=== PATIENT | female | born 1960 | race Caucasian/White ===

== ENCOUNTER → 2019-06-04 14:19 | Outpatient (CLI) | payer MEDICARE, OTHER, SELFPAY ==
[2019-06-04 15:56] LABS: Alanine Aminotransferase 30 U/L (12-78); Albumin Level 3.8 gm/dL (3.4-5.0); Alkaline Phosphatase 138 U/L (46-116); Anion Gap 13.3 mEq/L (5-15); Aspartate Amino Transferase 26 U/L (15-37); Bilirubin,Total 0.5 mg/dL (0.2-1.0); Blood Urea Nitrogen 10 mg/dL (7-18); Calcium 9.3 mg/dL (8.5-10.1); Carbon Dioxide 29 mmol/L (21.0-32.0); Chloride 100 mmol/L (98-107); Cholesterol 169 mg/dL (140-200); Creatinine,Serum 0.66 mg/dL (0.55-1.02); Estimated Glomerular Filt Rate 91 ml/min (>60); GFR (African American) 111 ML/MIN (>60); Globulin 3.9 gm/dl (1.3-3.2); Glucose 243 mg/dL (74-106); HDL Cholesterol 34 mg/dL (29-89); LDL Cholesterol 105 mg/dL (0-130); Potassium 4.3 mmoL/L (3.5-5.1); Sodium 138 mmol/L (136-145); T4 (Thyroxine) 9.1 ug/dl (4.7-13.3); Thyroid Stimulating Hormone 2.41 uIU/ml (0.358-3.740); Total Protein,Serum 7.7 gm/dL (6.4-8.2); Triglycerides 148 mg/dL (30-200); VLDL Cholesterol 30 mg/dL (0-40)
[2019-06-04 16:07] LABS: Hemoglobin A1C 9.5 % (0.0-7.0)
[2019-06-06 18:04] LABS: Vitamin D 25 Hydroxy 18.4 ng/mL (30.0-100.0)
[2019-06-06 18:06] LABS: Microalbumin, Urine <3.0 ug/mL (Not Estab.)
== END ==
PROVIDERS: Visit Provider Nurse Practitioner Family
DX: I10 Essential (primary) hypertension (principal); R53.83 Other fatigue; E11.9 Type 2 diabetes mellitus without complications; R09.89 Other specified symptoms and signs involving the circulatory and respiratory systems; E78.2 Mixed hyperlipidemia; Z79.84 Long term (current) use of oral hypoglycemic drugs
CPT/HCPCS: 80053; 80061; 82043; 82652; 83036; 84436; 84443

== ENCOUNTER → 2019-06-10 14:18 | Outpatient (CLI) | payer MEDICARE, OTHER, SELFPAY ==
--- NOTE | 2019-06-10 14:25 | XR_ITS ---
PROCEDURE: XR CHEST 2V CLINICAL HISTORY: cough Cough and congestion, former smoker COMPARISON: No exams were available for comparison FINDINGS: Borderline cardiomegaly without failure. Biventricular and right atrial pacer wires are present. Slight increased markings are present in the right perihilar region suggestive of patchy infiltrate. There is mild kyphosis with mild wedging T9 and T8 and T7 which may be chronic. IMPRESSION: Patchy right perihilar infiltrate with mild cardiomegaly Dictated by: Loc Duran MD 06/10/2019 16:24 Electronically signed by Loc Duran MD in [place] 06/10/2019 16:24
--- NOTE | 2019-06-10 14:25 | XR_ITS ---
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 Coarse intramedullary calcification is noted involving the distal shaft of the femur with a typical appearance of a bone infarction. No fracture or dislocation. Minimal osteoarthritic changes are present at the knee. IMPRESSION: Coarse intramedullary calcification of the distal shaft of the femur consistent with bone infarction Dictated by: Loc Duran MD 06/10/2019 16:26 Electronically signed by Loc Duran MD in [place] 06/10/2019 16:26
[2019-06-10 14:58] LABS: Basophils # 0.1 K/mm3 (0-0.2); Basophils % 0.8 % (0.1-2.0); Eosinophils # 0.3 K/mm3 (0.0-0.4); Eosinophils % 5.2 % (0.1-12.0); Hematocrit 41.4 % (37.0-47.0); Hemoglobin 13.2 g/dL (12.2-16.2); Lymphocytes # 1.6 K/mm3 (0.7-4.5); Lymphocytes % 25.7 % (10-50); Mean Corpuscular HGB Conc 31.9 g/dL (31.8-35.4); Mean Corpuscular Hemoglobin 29.9 pg (27.0-31.2); Mean Corpuscular Volume 93.7 fl (81-99); Mean Platelet Volume 8.9 fl (7.4-10.4); Monocytes # 0.7 K/mm3 (0.1-1.0); Monocytes % 11.1 % (1.7-9.3); Neutrophils # 3.6 K/mm3 (1.8-7.8); Neutrophils % 57.2 % (37.0-80.0); Platelet Count 230 K/mm3 (142-424); Red Blood Count 4.42 M/mm3 (4.20-5.40); Red Cell Distribution Width 12.7 % (11.5-17.5); White Blood Count 6.3 K/mm3 (4.8-10.8)
== END ==
PROVIDERS: PCP Emergency Medicine; Visit Provider Nurse Practitioner Family
DX: D49.9 Neoplasm of unspecified behavior of unspecified site (principal); R09.89 Other specified symptoms and signs involving the circulatory and respiratory systems; R05 Cough
CPT/HCPCS: 71046; 73552; 85025

== ENCOUNTER → 2019-06-19 10:17 | Outpatient (CLI) | payer MEDICARE, OTHER, SELFPAY ==
--- NOTE | 2019-06-19 10:30 | XR_ITS ---
PROCEDURE: XR KNEE LT 4V CLINICAL INDICATION: Femur Pain COMPARISON: XR FEMUR LT 2V from 06/10/2019 FINDINGS: No fracture or dislocation. No lytic or blastic change. There is normal mineralization. There is mild joint space narrowing medially and there is spurring of the tibial spines. There is mild narrowing of the patellofemoral space. There is no effusion. Again noted is the course somewhat diffuse intramedullary calcifications of the distal femur consistent with a bone infarct stable and unchanged from the previous exam. IMPRESSION: Mild degenerate changes, stable bone infarct distal femur Dictated by: Dr. Michael Wheatley MD 06/19/2019 10:[address] Michael Wheatley MD in [place] 06/19/2019 10:53
== END ==
PROVIDERS: PCP Nurse Practitioner Family; Visit Provider Orthopaedic Surgery
DX: M89.8X5 Other specified disorders of bone, thigh (principal)
CPT/HCPCS: 73564

== ENCOUNTER → 2019-07-21 08:08 | Outpatient (CLI) | payer MEDICARE, OTHER, SELFPAY ==
--- NOTE | 2019-07-21 | CA_ITS ---
APPROVED REPORT Exam: Pharmacologic Technologist: Ronna Truong Ht: 5 ft 6 in Wt: 250 lbs BSA: 2.20 m2 HR: 63 bpm BP: 161/67 mmHg Indications: Dyspnea Medical History Medications: Omeprazole,,,,, Carvedilol,,,,, Glipizide,,,,, Citalopram,,,,, Montelukast,,,,, Prednisone,,,,, Tizanidine,,,,, Vitamin D2,,,,, OxYbutynin,,,,, Potassium,,,,, Detromethorphan,,,,, Bunetanide,,,,, Stress Test Details Test: LEXISCAN HR Resting HR: 63 bpm Max Heart Rate (APMHR): 160 bpm Max HR Achieved: 99 bpm Target HR (85% APMHR): 136 bpm % of APMHR: 61 Recovery HR: 63 bpm BP Resting BP: 161.0/67.0 mmHg Max BP: 176.0/84.0 mmHg Recovery BP: 161.0/67.0 mmHg ECG Clinical Exercise duration: 04:00 min Highest Stage Achieved: Stress ECG Conclusion Resting ECG: Ventricular paced rhythm Symptoms: Shortness of air,malaise, stomach discomfort, headache. No chest pain. Arrhythmias/Ectopy: Occasional PVC. Periods of [place] rhythm intermixed with paced rhythm. ST-T Changes: Exaggeration of baseline abnormalities. Conclusion: Non-diagnostic Lexiscan stress. Myoview images reported separately. Electronically signed by : Joseph Hernandez, 07/22/2019 15:06:29
--- NOTE | 2019-07-21 08:12 | CA_ITS ---
[facility] RADIOLOGICAL CONSULTATION Patient Name : SHAYLA BERMUDEZ X-RAY # : [id number] Physician: SNEHAL ARIAS AGE: 59Y : 1960 00:00:00 ( F ) Exam : CA ECHO DOPPLER COMPLETE ACC # : [id number] Study Date : 07/21/2019 08:59:36 Patient Class : O FINAL REPORT CLINICAL DATA: FINDINGS: TRANSCRIBED REPORT EXAM: Comprehensive 2D, Doppler, and color-flow Echocardiogram Petroleum Laboratory Technician: Sheri Parada RDCS Ht: 5 ft 6 in Wt: 261lbs BSA: 2.24 BP: 161/92 mmHg Indications: Shortness of Breath, Diabetes, Obesity, Dyspnea, Hypertension/HDD,pacer,CHF,ex smoke M-Mode Dimensions RVDd 2.90 cm (0.9-2.6) LA Diam 4.30 cm (1.9-4.0) LVDd 5.90 cm (3.5-5.7) Ao Diam 2.80 cm (2.0-3.7) LVDs 4.90 cm (3.5-5.7) AV Cusp 1.30 cm (1.5-2.6) IVSd 1.30 cm (0.6-1.1) PWd 1.10 cm (0.6-1.1) EF (Teich) 45.00% Electronically signed by : IMPRESSION: Dictated by at Transcribed by at
--- NOTE | 2019-07-21 08:12 | NM_ITS ---
APPROVED REPORT Exam: Nuclear Stress Test Indication: SOB, HTN, DM, Family history, Pacemaker Patient Location: Outpatient Stress Tech: Ronna Truong NM Tech:Iva Gonzalez, ARRT, RT (R)(N) Ht: 5 ft 6 in Wt: 250 lbs Bra Size: 46D HR: 63 bpm BP: 161/67 mmHg BSA: 2.20 m2 BMI: 40.3 History: SOB, HTN, DM, Family history, Pacemaker Procedure: Patient received a 0.4 mg of intravenous Lexiscan, resting heart rate 63 bpm, resting blood pressure 161/67 mmHg, with Lexiscan maximum heart rate achived was 74 bpm which is % of the maximum predicted heart rate and blood pressure was 176/84 mmHg. Cardiac Stress and Resting SPECT Images: Cardiac Stress and Resting SPECT images were obtained using technetium 99m Myoview 31.2 mCi stress and 9.91 mCi at rest. The ejection fraction is low at 33% with global hypokinesia There is a fixed defect within the apical septal region. Tgere is a small reversible defect in the lateral wall. Conclusion: The ejection fraction is low at 33% with global hypokinesia There is a fixed defect within the apical septal region consistent with an area of infarction. There is a small reversible defect in the lateral wall consistent with a small area of ischemia Electronically signed by : Loc Duran MD 07/22/2019 09:53:54
--- NOTE | 2019-07-21 08:49 | HMH.ITSHM ---
Current Home Medications as stated by this patient Barbara Cabrera or branch sales and service representative. []TIZANIDINE PREDNISONE POTASSIUM OXYBUTYNIN OMEPRAZOLE MONTELUKAST GLIPIZIDE VITAMIN D2 DETROMETHORPHAN CITALOPRAM CARVEDILOL BUMETANIDE AMLODIPINE ALBUTEROL
== END ==
PROVIDERS: PCP Nurse Practitioner Family; Visit Provider Internal Medicine Cardiovascular Disease
DX: I48.0 Paroxysmal atrial fibrillation (principal); J18.9 Pneumonia, unspecified organism; J44.9 Chronic obstructive pulmonary disease, unspecified; R05 Cough; R06.09 Other forms of dyspnea; Z95.0 Presence of cardiac pacemaker
CPT/HCPCS: 78452; 93017; 93306; A9502; J2785

== ENCOUNTER → 2019-07-31 12:04 | Outpatient (CLI) | payer MEDICARE, OTHER, SELFPAY | PROVIDERS: Visit Provider Internal Medicine Cardiovascular Disease | DX: R06.09 Other forms of dyspnea (principal) | CPT/HCPCS: 36415; 83880 ==

== ENCOUNTER → 2019-08-06 08:20 | Outpatient (CLI) | payer MEDICARE, OTHER, SELFPAY ==
--- NOTE | 2019-08-06 08:21 | US_ITS ---
APPROVED REPORT Exam Type: Lower Extremity Segmental Pressures Geospatial Scientist: Sheri Parada RDCS Indications Claudication: Rest Pain: Risk Factors Hypertension Hyperlipidemia Obesity Cardiac Disease DiabetesDiabetes, History of Smoking Pressures/Indices Right Indices Left Indices Brachial 160.00 mmHg Brachial 153.00 mmHg Low Thigh 174.00 mmHg 1.09 Low Thigh 163.00 mmHg 1.02 Calf 157.00 mmHg 0.98 Calf 142.00 mmHg 0.89 Ankle(PT) 179.00 mmHg 1.12 Ankle(PT) 161.00 mmHg 1.01 Ankle(DP) 177.00 mmHg 1.11 Ankle(DP) 165.00 mmHg 1.03 Digit 100.00 mmHg 0.63 Digit 123.00 mmHg 0.77 Findings R HORACE 1.1 L HORACE 1.0 R TBI .6 L TBI .8 NORMAL PULSES AND WAVEFORMS Conclusion No evidence significant arterial disease throughout the right and left lower extremities as evidenced by normal resting PVR waveforms and normal resting indices. Electronically signed by : Loc Duran MD 08/06/2019 18:28:27
--- NOTE | 2019-08-06 08:49 | FL_ITS ---
PROCEDURE: FL BARIUM SWALLOW CLINICAL INDICATION: difficulty swallowing Choking on food COMPARISON: No exams were available for comparison TECHNIQUE: In the upright position the patient was observed to swallow barium in both the AP and lateral view. The cervical esophagus was examined under fluoroscopy with images obtained. The patient was then placed prone in the right anterior oblique position and was observed to swallow barium with Valsalva technique . FLUOROSCOPY TIME: 54 seconds FINDINGS: There was no evidence of aspiration. There was normal peristalsis. No filling defects or mucosal abnormalities. No masses or strictures. There is a small sliding hiatal hernia. No constricting Schatzki's ring. IMPRESSION: Small sliding hiatal hernia otherwise negative barium swallow Dictated by: Loc Duran MD 08/06/2019 15:44 Electronically signed by Loc Duran MD in [place] 08/06/2019 15:44
== END ==
PROVIDERS: PCP Nurse Practitioner Family; Visit Provider Physician Assistant
DX: I73.9 Peripheral vascular disease, unspecified (principal); R13.10 Dysphagia, unspecified
CPT/HCPCS: 74220; 93923

== ENCOUNTER → 2019-08-14 12:29 | Outpatient (CLI) | payer MEDICARE, OTHER, SELFPAY ==
--- NOTE | 2019-08-14 12:34 | XR_ITS ---
PROCEDURE: XR CHEST 2V CLINICAL HISTORY: atrial fib Shortness of breath, atrial fibrillation COMPARISON: XR CHEST 2V from 06/10/2019 XR CHEST 2V from 06/27/2019 FINDINGS: Biventricular pacemaker is present from left subclavian approach with a right atrial lead also noted . Normal heart size. No evidence of CHF. Lungs are clear bilaterally. There are mild degenerative changes in the thoracic spine with mild kyphosis IMPRESSION: As above, no acute finding Dictated by: Loc Duran MD 08/14/2019 17:19 Electronically signed by Loc Duran MD in [place] 08/14/2019 17:19
[2019-08-14 13:55] LABS: Alanine Aminotransferase 25 U/L (12-78); Albumin Level 3.1 gm/dL (3.4-5.0); Alkaline Phosphatase 118 U/L (46-116); Aspartate Amino Transferase 26 U/L (15-37); Bilirubin,Direct 0.1 mg/dL (0.0-0.2); Bilirubin,Indirect 0.6 mg/dL (0.0-0.9); Bilirubin,Total 0.7 mg/dL (0.2-1.0); Free Thyroxine Index 2.6 ug/dL (5.93-13.13); T4 (Thyroxine) 7.3 ug/dl (4.7-13.3); Thyroid Stimulating Hormone 2.67 uIU/ml (0.358-3.740); Total Protein,Serum 6.5 gm/dL (6.4-8.2); Triiodothryronine (T3) Uptake 35 % (31-39)
== END ==
PROVIDERS: PCP Nurse Practitioner Family; Visit Provider Urology
DX: I48.0 Paroxysmal atrial fibrillation (principal); R06.00 Dyspnea, unspecified; Z51.81 Encounter for therapeutic drug level monitoring; Z79.899 Other long term (current) drug therapy; I42.9 Cardiomyopathy, unspecified
CPT/HCPCS: 36415; 71046; 80076; 84436; 84443; 84479

== ENCOUNTER 2019-08-20 02:48 | Inpatient (IN) ==
[2019-08-20 03:21] LABS: Basophils # 0.1 K/mm3 (0-0.2); Basophils % 0.5 % (0.1-2.0); Eosinophils # 0.2 K/mm3 (0.0-0.4); Eosinophils % 2.2 % (0.1-12.0); Hemoglobin 12.5 g/dL (12.2-16.2); Lymphocytes # 2.7 K/mm3 (0.7-4.5); Lymphocytes % 27.6 % (10-50); Mean Corpuscular HGB Conc 32.2 g/dL (31.8-35.4); Mean Platelet Volume 9.7 fl (7.4-10.4); Monocytes # 0.6 K/mm3 (0.1-1.0); Neutrophils # 6.3 K/mm3 (1.8-7.8); Neutrophils % 63.7 % (37.0-80.0); Platelet Count 238 K/mm3 (142-424); Red Blood Count 4.11 M/mm3 (4.20-5.40); Red Cell Distribution Width 13.3 % (11.5-17.5); White Blood Count 9.9 K/mm3 (4.8-10.8)
[2019-08-20 03:30] LABS: Albumin Level 3.3 gm/dL (3.4-5.0); Bilirubin,Direct 0.2 mg/dL (0.0-0.2); Bilirubin,Indirect 0.4 mg/dL (0.0-0.9); Bilirubin,Total 0.6 mg/dL (0.2-1.0); Total Protein,Serum 7.2 gm/dL (6.4-8.2)
[2019-08-20 03:34] LABS: Anion Gap 10.7 mEq/L (5-15); C-Reactive Protein 2.5 mg/dL (0.0-0.9); Calcium 8.6 mg/dL (8.5-10.1)
[2019-08-20 03:43] LABS: Erythrocyte Sedimentation Rate 24 mm/hr (0-30)
--- NOTE | 2019-08-20 04:39 | Emergency Department Note ---
ED Disposition Clinical Impression: Biventricular cardiac pacemaker in situ Congestive heart failure Qualifiers: Heart failure type: unspecified Heart failure chronicity: acute on chronic Qualified Code(s): I50.9 - Heart failure, unspecified A-fib Qualifiers: Atrial fibrillation type: longstanding persistent Qualified Code(s): I48.11 - Longstanding persistent atrial fibrillation Obesity Qualifiers: Obesity type: due to excess calories Obesity classification: adult class 3 (BMI >= 40) Serious obesity comorbidity presence: with serious comorbidity Body mass index: BMI 40.0-44.9 Qualified Code(s): E66.01 - Morbid (severe) obesity due to excess calories; Z68.41 - Body mass index (BMI) 40.0-44.9, adult Diabetes mellitus Qualifiers: Diabetes mellitus type: type 2 Diabetes mellitus assisted insulin use: unspecified assisted insulin use status Diabetes mellitus complication status: with other specified complication Qualified Code(s): E11.69 - Type 2 diabetes mellitus with other specified complication Disposition: Admitted as Observation Condition on Discharge: Fair Referrals: Staci Riggins APRN [Primary Care Provider] - - Critical Care Critical Care Time: No Attestation: On 08/20/19, the high probability of a clinically significant, sudden or life threatening deterioration of the following system(s) required my full and direct attention, intervention and personal management. The time I documented below is in addition to time spent performing reported procedures but includes the following listed in this critical care notation. Medical Decision Making - Medical Records Medical records reviewed: Yes: I reviewed the patient's medical records. - Feliberto Inquiry Pt receiving controlled substance: No Vital Signs: 08/20/19 03:00 Temperature 97.6 F Temperature Source Oral Pulse Rate [Left Radial] 80 Respiratory Rate 16 Blood Pressure [Right Arm] 140/87 Blood Pressure Mean [Right Arm] 104 Blood Pressure Source [Right Arm] Automatic Cuff Blood Pressure Position [Right Arm] Sitting 02 Sat by Pulse Oximetry 96 Oxygen Delivery Method Room Air - Lab Data Lab results reviewed: Yes: I reviewed the patient's lab results. Lab Results 08/20/19 03:00: WBC 9.9, RBC 4.11 L, Hgb 12.5, Hct 39.0, MCV 95.0, MCH 30.5, MCHC 32.2, RDW 13.3, Plt Count 238, MPV 9.7, Neut % (Auto) 63.7, Lymph % (Auto) 27.6, Lewis % (Auto) 6.0, Eos % (Auto) 2.2, Baso % (Auto) 0.5, Neut # (Auto) 6.3, Lymph # (Auto) 2.7, Lewis # (Auto) 0.6, Eos # (Auto) 0.2, Baso # (Auto) 0.1, ESR 24 08/20/19 03:00: Sodium 136, Potassium 3.7, Chloride 102, Carbon Dioxide 27, Anion Gap 10.7, BUN 12, Creatinine 0.81, Estimated Creat Clear 132, Estimated GFR 72, Est GFR ( Amer) 87, Glucose 245 H, Calcium 8.6, Troponin I 0.03, C-Reactive Protein 2.5 H 08/20/19 03:00: Total Bilirubin 0.6, Direct Bilirubin 0.2, Indirect Bilirubin 0.4, AST 19, ALT 29, Alkaline Phosphatase 121 H, Total Protein 7.2, Albumin 3.3 L Result diagrams: 08/20/19 03:00 08/20/19 03:00 Orders (Tests/Meds): ED MEDICATIONS Discontinued Medications Generic Name Dose Route Start Last Admin Trade Name Freq PRN Reason Stop Dose Admin Methylprednisolone Sodium Succinate 125 mg 08/20/19 03:17 08/20/19 03:37 Solu-Medrol 125mg/2ml Vial IV 08/20/19 03:18 125 mg ONCE ONE Administration ORDERS Category Date Time Status XR chest 2V Stat Exams 08/20/19 03:11 Taken Troponin I Q3H Lab 08/20/19 06:15 Ordered Troponin I Q3H Lab 08/20/19 09:15 Ordered - Radiology Data #1 Image(s): Chest Image Reviewed: Yes I reviewed the patient's radiology image Preliminary Findings: Abnormal (chf) - ECG Data Tracing #1 Arrhythmias present: afib Ischemic changes: non-specific ST-T wave changes Conduction abnormalities present: IVCD - Physician Consults Physician Consulted: [email or web address] Reason -: Pt condition Resp/SOB HPI - General Chief Complaint: Shortness of Breath/Dyspnea Stated Complaint: SOB Time Seen by Provider: 08/20/19 03:20 Mode of Arrival: Wheelchair Source of Information: Patient, Medical Record Limitations: No Limitations Description of Symptoms (Recalled from ER Triage Doc. by RN): PT STATED SHE HAS BEEN SOB FOR THE PAST THREE DAYS THAT HAS PROGRESSIVELY GOTTEN WORSE WHEN SHE LAYS DOWN OR WITH EXERTION. PT STATED SHE WAS RECENTLY DIAGNOSED WITH AFIB AND IS SUPPOSED TO SEE BK THIS MORNING FOR A CARDIOVERSION. PT DENIES ANY CHEST PAIN AT THIS TIME. - History of Present Illness pt with known afib and chf with acute excerbation of sx this am - no chest pain MD Complaint: shortness of breath Onset (ago): hour(s) Severity: moderate Relieving factors: upright position Exacerbating factors: lying flat Known history of: congestive heart failure, diabetes Associated symptoms: denies other symptoms Treatment prior to arrival: none - Related Data Home oxygen amount: none Home Medications Medication Instructions Recorded Confirmed albuterol sulfate HFA 90 2 puff INHALATION Q6H PRN 06/04/19 08/20/19 mcg/actuation aerosol inhaler azelastine-fluticasone 137 mcg-50 1 spray INTRANASAL BID 06/04/19 08/14/19 mcg/spray nasal spray bumetanide 1 mg tablet 2 mg PO DAILY tab 06/04/19 08/14/19 citalopram 20 mg tablet 20 mg PO DAILY 06/04/19 08/14/19 glipizide 5 mg tablet 5 mg PO DAILY 06/04/19 08/20/19 metformin ER 1,000 mg 1,000 mg PO QPM 06/04/19 08/20/19 tablet,extended release 24hr montelukast 10 mg tablet 10 mg PO QPM 06/04/19 08/20/19 omeprazole 20 mg capsule,delayed 20 mg PO DAILY 06/04/19 08/20/19 release potassium chloride ER 20 mEq 20 meq PO DAILY 06/04/19 08/20/19 tablet,extended release tizanidine 4 mg capsule 4 mg PO TID PRN 06/04/19 08/20/19 diclofenac potassium 50 mg tablet 75 mg PO BID PRN tab 06/10/19 08/20/19 oxybutynin chloride 5 mg tablet 5 mg PO BID 06/25/19 08/14/19 aspirin 81 mg tablet,delayed 81 mg PO DAILY 07/31/19 08/20/19 release Amiodarone HCl 200 mg PO BID 08/20/19 08/20/19 Apixaban [Eliquis] 5 mg PO BID 08/20/19 08/20/19 Ergocalciferol (Vitamin D2) 50,000 unit PO QWEEK 08/20/19 08/20/19 [Drisdol] Metoprolol Succinate 25 mg PO .nightly 08/20/19 08/20/19 Sacubitril/Valsartan [Entresto] 1 tab PO BID 08/20/19 08/20/19 Previous Rx's Medication Instructions Recorded dextromethorphan polistirex ER 30 10 ml PO Q12H PRN #89 ml 06/10/19 mg/5 mL oral susp ext.release 12hr Allergies Allergy/AdvReac Type Severity Reaction Status Date / Time morphine Allergy Mild Verified 08/20/19 03:10 tramadol Allergy Mild Nausea Verified 08/20/19 03:10 [facility] History - Hepatitis A Screen Drug use history?: No High risk sexual behaviors?: No History of sexually transmitted infection?: No Currently employed?: No Childcare worker?: No Do you have indoor plumbing?: Yes Do you have electricity?: Yes Attestation statement:: This patient has been screened for Hepatitis A risk factors. I have reviewed the patient's past medical history: Yes Medical History: Reports:: Congestive Heart Failure, Chronic Obstructive Pulmonary Disease (COPD), Diabetes Mellitus Type 2, Gastroesophageal Reflux Disease(GERD), Hypertension, Internal Pacemaker Other Surgeries: Yes: Cardiac Catheterization, Cholecystectomy, Colonoscopy, Pacemaker, Tubal Ligation - Social History Smoking Status: Former smoker # Packs/Day (cigarettes): 0 #Yrs smoked (if former smoker): 20 Alcohol Intake: former Substance Use Type: denies use Occupational Status: unemployed, disabled Household Members: family Family Hx:: Diabetes, Coronary Artery Disease, Heart Attack Comment: Father-CAD,[id number] ROS Obtained: Yes All systems reviewed & no additional complaints - Constitutional Constitutional: Denies fever(s) - Eyes Eyes: Denies change in vision - ENT Ears, Nose, Mouth, and Throat: Denies sore throat - Cardiovascular Cardiovascular: Denies chest pain, Reports dyspnea, Reports rapid heart rate - Respiratory Respiratory: No cough - Gastrointestinal Gastrointestingal: Denies: abdominal pain - Genitourinary Female Genitourinary: Denies hematuria - Musculoskeletal Musculoskeletal: Denies joint pain, Denies joint swelling - Integumentary/Breasts Skin/Breast: Denies rash - Neurologic Neurologic: Denies seizure-like activity Physical Exam - General General appearance: alert, obese - Head Head exam: normocephalic - Eye Eye exam: Present: PERRL, EOMI - ENT ENT exam: Present: mucous membranes dry - Neck Neck exam: Present: trachea midline - Respiratory Respiratory exam: Present: other (bilat rales ). Absent: respiratory distress - Cardiovascular Cardiovascular exam: Present: irregular rhythm, systolic murmur, +S4 - Abdominal Exam Abdominal exam: Present: soft - Extremities Exam Extremities exam: Present: pedal edema - Neurological Exam Neurological exam: Present: alert, oriented X3, CN II-XII intact - Psychiatric Psychiatric exam: Present: normal affect - Skin Skin exam: Absent: rash
--- NOTE | 2019-08-20 07:44 | Pharmacy Consult Notes ---
[facility] Pharmacy VTE Monitoring - Patient Demographics Admission date: 08/20/19 Report Date: 08/20/19 Time: 07:44 Allergies/Adverse Reactions: Patient Allergies morphine Allergy (Mild, Verified 08/20/19 03:10) tramadol Allergy (Mild, Verified 08/20/19 03:10) Nausea Height: 1.68 m Weight: 119.493 kg Patient Problems: Current Active Problems Congestive heart failure (Acute) A-fib (Acute) Obesity (Acute) Diabetes mellitus (Acute) Biventricular cardiac pacemaker in situ (Chronic) - VTE Risk Labs: VTE Related Lab Results Hgb 12.5 g/dL (12.2-16.2) 08/20/19 03:00 Hct 39.0 % (37.0-47.0) 08/20/19 03:00 Plt Count 238 K/mm3 (142-424) 08/20/19 03:00 BUN 12 mg/dL (7-18) 08/20/19 03:00 Creatinine 0.81 mg/dL (0.55-1.02) 08/20/19 03:00 Estimated Creat Clear 132 mL/min (50-200) 08/20/19 03:00 VTE Risk Level: Moderate Risk - Prophylaxis VTE Prophylaxis Ordered?: Yes Types of VTE Prophylaxis: TEDS Knee High Location of Applied Device: Bilateral Lower Extremeties - VTE Diagnosis Confirmed Treatment or plan recommended: Continue Current Treatment
--- NOTE | 2019-08-20 08:23 | Consult Report ---
History of Present Illness Consult date: 08/20/19 Requesting physician: Rudolph Conrad Consult reason: shortness of breath Chief complaint: SOA Additional Medical History:: 1. [facility] biventricular pacemaker placed 07/30/2018, Dr. Deandre Jenkins, [place], [place], 4 nonischemic cardiomyopathy, LBBB and symptomatic sinus bradycardia 2. Nonischemic cardiomyopathy, near normal coronary arteries (10-20% RCA stenosis) by cath 07/28/2018, [place], [place] A. Left heart catheterization, 07/2019, normal coronary arteries. Performed due to abnormal lexiscan myoview showing apical septal infarct and inferior ischemia. B. CHF, 07/2019 3. Hyperlipidemia 4. Remote tobacco use history 5. Diabetes mellitus type 2 6. Hypertension 7. Atrial fibrillation, on Eliquis therapy since 08/14/2019 A. Amiodarone and toprol therapy recently started, 08/14/2019, with plans for DANIS cardioversion on 08/20/2019 as an outpatient History of present illness: 59-year-old white female with known nonischemic cardiomyopathy and biventricular pacemaker presented to the emergency department for evaluation of increasing shortness of breath and chest tightness over the last several days. Patient denies any medication noncompliance and any increase in salt or fluid intake. She has been taken Benadryl for her sinus congestion and cough. Chest x-ray showed evidence of congestive heart failure with mildly elevated BNP. Patient had a chest x-ray 1 week ago with no evidence of congestive heart failure. She did receive Lasix overnight with improvement in her symptoms. She recently established care in our clinic. Recent echo and lexiscan myoview were abnormal with low EF and areas of infarct and ischemia which prompted C showing reduced LVEF with normal coronaries. Last week, she was started on amiodarone and eliquis due to pacemaker download showing episodes of a.fib with RVR. [facility] History Medical History: Reports:: Arrhythmia, Atrial Fibrillation, Congestive Heart Failure, Chronic Obstructive Pulmonary Disease (COPD), Diabetes Mellitus Type 2, Gastroesophageal Reflux Disease(GERD), Hyperlipidemia, Hypertension, Internal Pacemaker *Have you ever received a pneumonia vaccine?: Yes *Have you received a flu vaccine this season?: No Other Surgeries: Yes: Cardiac Catheterization, Cholecystectomy, Colonoscopy, Pacemaker, Tubal Ligation - *Social History Educational Level: Completed College Smoking Status: Former smoker Tobacco Type: cigarettes # Packs/Day (cigarettes): 0 #Yrs smoked (if former smoker): 20 Alcohol Intake: never Substance Use Type: denies use *Occupational Status:: unemployed, disabled Household Members: family *Travel in the last 8 weeks: None Family Hx:: Cancer, Coronary Artery Disease, Diabetes, Heart Attack, Hyperlipidemia, Hypertension, Stroke, Alcoholism Meds Home Medications Medication Instructions Recorded Confirmed Type albuterol sulfate HFA 90 2 puff IH Q6HP PRN 06/04/19 08/20/19 History mcg/actuation aerosol inhaler azelastine-fluticasone 137 mcg-50 1 spray INTRANASAL BID 06/04/19 08/20/19 History mcg/spray nasal spray citalopram 20 mg tablet 20 mg PO DAILY 06/04/19 08/20/19 History glipizide 5 mg tablet 5 mg PO DAILY 06/04/19 08/20/19 History metformin ER 1,000 mg 1,000 mg PO HS 06/04/19 08/20/19 History tablet,extended release 24hr montelukast 10 mg tablet 10 mg PO HS 06/04/19 08/20/19 History potassium chloride ER 20 mEq 20 meq PO DAILY 06/04/19 08/20/19 History tablet,extended release aspirin 81 mg tablet,delayed 81 mg PO DAILY 07/31/19 08/20/19 History release Amiodarone HCl 200 mg PO BID 08/20/19 08/20/19 History Apixaban [Eliquis] 5 mg PO BID 08/20/19 08/20/19 History Metoprolol Succinate 25 mg PO HS 08/20/19 08/20/19 History Sacubitril/Valsartan [Entresto 24 1 each PO BID 08/20/19 08/20/19 History mg-26 mg Tablet] Allergies Allergy/AdvReac Type Severity Reaction Status Date / Time morphine Allergy Mild Verified 08/20/19 03:10 tramadol Allergy Mild Nausea Verified 08/20/19 03:10 Review of Systems - Review of Systems Review of systems:: pertinent systems reviewed and negative unless documented below - *Cardiovascular Reports shortness of breath, Reports shortness of breath with activity, Denies chest pain - *Respiratory Reports chest congestion, Reports cough, Reports shortness of breath, Reports shortness of breath with activity - *Gastrointestinal Denies abdominal pain, Denies heartburn - *Genitourinary Denies blood in urine - *Musculoskeletal Denies joint pain, Denies back pain - *Neurologic Denies unsteadiness, Denies dizziness, Denies seizure-like activity Exam Vital signs and Labs for Last 24 Hours: Temp Pulse Resp BP Pulse Ox 97.7 F 72 21 163/87 H 91 L 08/20/19 05:32 08/20/19 05:32 08/20/19 05:32 08/20/19 05:32 08/20/19 05:32 Laboratory Results - last 24 hr 08/20/19 03:00: WBC 9.9, RBC 4.11 L, Hgb 12.5, Hct 39.0, MCV 95.0, MCH 30.5, MCHC 32.2, RDW 13.3, Plt Count 238, MPV 9.7, Neut % (Auto) 63.7, Lymph % (Auto) 27.6, [place] % (Auto) 6.0, Eos % (Auto) 2.2, Baso % (Auto) 0.5, Neut # (Auto) 6.3, Lymph # (Auto) 2.7, [place] # (Auto) 0.6, Eos # (Auto) 0.2, Baso # (Auto) 0.1, ESR 24 08/20/19 03:00: Sodium 136, Potassium 3.7, Chloride 102, Carbon Dioxide 27, Anion Gap 10.7, BUN 12, Creatinine 0.81, Estimated Creat Clear 132, Estimated GFR 72, Est GFR ( Amer) 87, Glucose 245 H, Calcium 8.6, Troponin I 0.03, C-Reactive Protein 2.5 H 08/20/19 03:00: Total Bilirubin 0.6, Direct Bilirubin 0.2, Indirect Bilirubin 0.4, AST 19, ALT 29, Alkaline Phosphatase 121 H, Total Protein 7.2, Albumin 3.3 L 08/20/19 03:00: B-Natriuretic Peptide 227 H 08/20/19 06:11: POC Glucose 260 H I & O for Last 24 hours: Intake & Output 08/17/19 08/18/19 08/19/19 08/20/19 11:59 11:59 11:59 11:59 Output Total 900 / 900 Balance -900 / -900 Weight 263 lb 7 oz - *Routine HEENT Exam Head: Present: normocephalic Eye: Present: EOMI, PERRL ENT: Present: mucous membranes moist - *Routine Neck Exam Present: supple. Absent: JVD, carotid bruit - *Routine Respiratory Exam Present: rales. Absent: accessory muscle use, rhonchi, wheezes - *Routine Cardiovascular Exam Present: irregularly irregular. Absent: murmur, gallop, rubs - *Routine Abdominal Exam Present: soft. Absent: tenderness, distended, guarding - *Routine Extremities Exam Present: edema. 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 insulin use status Diabetes mellitus complication status: with other specified complication Qualified Code(s): E11.69 - Type 2 diabetes mellitus with other specified complication Category: Medical Code(s): E11.9 - Type 2 diabetes mellitus without complications (3) Obesity Current visit: Yes Status: Acute Qualifiers: Obesity type: due to excess calories Obesity classification: adult class 3 (BMI >= 40) Serious obesity comorbidity presence: with serious comorbidity Body mass index: BMI 40.0-44.9 Qualified Code(s): E66.01 - Morbid (severe) obesity due to excess calories; Z68.41 - Body mass index (BMI) 40.0-44.9, adult Category: Medical Code(s): E66.9 - Obesity, unspecified (4) Biventricular cardiac pacemaker in situ Current visit: Yes Status: Chronic Category: Medical Code(s): Z95.0 - Presence of cardiac pacemaker (5) PAF (paroxysmal atrial fibrillation) Current visit: No Status: Acute Category: Medical Code(s): I48.0 - Paroxysmal atrial fibrillation (6) COPD (chronic obstructive pulmonary disease) Current visit: No Status: Chronic Qualifiers: COPD type: unspecified COPD Qualified Code(s): J44.9 - Chronic obstructive pulmonary disease, unspecified Category: Medical Code(s): J44.9 - Chronic obstructive pulmonary disease, unspecified (7) Cardiomyopathy Current visit: No Status: Chronic Qualifiers: Cardiomyopathy type: ischemic Qualified Code(s): I25.5 - Ischemic ca rdiomyopathy Category: Medical Code(s): I42.9 - Cardiomyopathy, unspecified (8) Dyspnea Current visit: No Status: Chronic Qualifiers: Dyspnea type: dyspnea on exertion Qualified Code(s): R06.09 - Other forms of dyspnea Category: Medical Code(s): R06.00 - Dyspnea, unspecified (9) HHD (hypertensive heart disease) Current visit: No Status: Chronic Qualifiers: Heart failure presence: with heart failure Heart failure type: combined sys tolic and diastolic Heart failure chronicity: chronic Qualified Code(s): I11.0 - Hypertensive heart disease with heart failure; I50.42 - Chronic combined systolic (congestive) and diastolic (congestive) heart failure Category: Medical Code(s): I11.9 - Hypertensive heart disease without heart failure (10) HLD (hyperlipidemia) Current visit: No Status: Chronic Qualifiers: Hyperlipidemia type: mixed hyperlipidemia Qualified Code(s): E78.2 - Mixed hyperlipidemia Category: Medical Code(s): E78.5 - Hyperlipidemia, unspecified - Assessment and plan all Dx Assessment and Plan for all problems:: 1. Continue diuretic therapy for congestive heart failure. Follow BUN and creatinine closely. 2. Continue plans to proceed with DANIS cardioversion today. Continue Eliquis and amiodarone therapy 3. Further recommendations to follow pending above results
--- NOTE | 2019-08-20 08:56 | History & Physical Report ---
*Admission Date: 08/20/19 *Chief complaint: soa *History of present illness: 59 yr old female presents to ed with c/o shortness of air over the last 3 days having progressively gotten worse when she lays down or with exertion. Patient states she was recently diagnosed with A. fib and is seeing Dr. Kate and has recently started treatment.patient denies any chest pain at this time patient admitted for A. fib and increasing shortness of air. Patient will have a cardiology consult. [facility] History I have reviewed the patient's past medical history: Yes Medical History: Reports:: Arrhythmia, Atrial Fibrillation, Congestive Heart Failure, Chronic Obstructive Pulmonary Disease (COPD), Diabetes Mellitus Type 2, Gastroesophageal Reflux Disease(GERD), Hyperlipidemia, Hypertension, Internal Pacemaker *Have you ever received a pneumonia vaccine?: Yes *Have you received a flu vaccine this season?: No Other Surgeries: Yes: Cardiac Catheterization, Cholecystectomy, Colonoscopy, Pacemaker, Tubal Ligation - *Social History Educational Level: Completed College Smoking Status: Former smoker Tobacco Type: cigarettes # Packs/Day (cigarettes): 0 #Yrs smoked (if former smoker): 20 Alcohol Intake: never Substance Use Type: denies use *Occupational Status:: unemployed, disabled Household Members: family *Travel in the last 8 weeks: None Family Hx:: Cancer, Coronary Artery Disease, Diabetes, Heart Attack, Hyperlipidemia, Hypertension, Stroke, Alcoholism Review of Systems - Review of Systems Review of systems:: pertinent systems reviewed and negative unless documented below - Constitutional Reports fatigue, Reports weakness, Denies body ache(s) - Eyes Denies change in vision - ENT Denies bleeding gums - *Cardiovascular Denies chest pain at rest - *Respiratory Reports shortness of breath, Reports shortness of breath with activity, Denies excessive phlegm production - *Gastrointestinal Denies nausea, Denies vomiting - *Genitourinary Denies urinary incontinence - *Musculoskeletal Reports muscle weakness, Denies joint pain - Integumentary/Breasts Denies rash - *Neurologic Denies abnormal hearing, Denies seizure-like activity - Psychiatric Denies lack of enjoyment, Denies anxiety - Endocrine Denies flushing - Hematologic/Lymphatic Denies enlarged lymph nodes - Allergic/Immunologic Denies itchy eyes Meds Home Medications Medication Instructions Recorded Confirmed Type albuterol sulfate HFA 90 2 puff INHALATION Q6H PRN 06/04/19 08/20/19 History mcg/actuation aerosol inhaler azelastine-fluticasone 137 mcg-50 1 spray INTRANASAL BID 06/04/19 08/14/19 History mcg/spray nasal spray bumetanide 1 mg tablet 2 mg PO DAILY tab 06/04/19 08/14/19 History citalopram 20 mg tablet 20 mg PO DAILY 06/04/19 08/14/19 History glipizide 5 mg tablet 5 mg PO DAILY 06/04/19 08/20/19 History metformin ER 1,000 mg 1,000 mg PO QPM 06/04/19 08/20/19 History tablet,extended release 24hr montelukast 10 mg tablet 10 mg PO QPM 06/04/19 08/20/19 History omeprazole 20 mg capsule,delayed 20 mg PO DAILY 06/04/19 08/20/19 History release potassium chloride ER 20 mEq 20 meq PO DAILY 06/04/19 08/20/19 History tablet,extended release tizanidine 4 mg capsule 4 mg PO TID PRN 06/04/19 08/20/19 History dextromethorphan polistirex ER 30 10 ml PO Q12H PRN #89 ml 06/10/19 08/20/19 Rx mg/5 mL oral susp ext.release 12hr diclofenac potassium 50 mg tablet 75 mg PO BID PRN tab 06/10/19 08/20/19 History oxybutynin chloride 5 mg tablet 5 mg PO BID 06/25/19 08/14/19 History aspirin 81 mg tablet,delayed 81 mg PO DAILY 07/31/19 08/20/19 History release Amiodarone HCl 200 mg PO BID 08/20/19 08/20/19 History Apixaban [Eliquis] 5 mg PO BID 08/20/19 08/20/19 History Ergocalciferol (Vitamin D2) 50,000 unit PO QWEEK 08/20/19 08/20/19 History [Drisdol] Metoprolol Succinate 25 mg PO .nightly 08/20/19 08/20/19 History Sacubitril/Valsartan [Entresto] 1 tab PO BID 08/20/19 08/20/19 History Allergies Allergy/AdvReac Type Severity Reaction Status Date / Time morphine Allergy Mild Verified 08/20/19 03:10 tramadol Allergy Mild Nausea Verified 08/20/19 03:10 Exam Vital signs and Labs for Last 24 Hours: Temp Pulse Resp BP Pulse Ox 97.8 F 78 18 143/83 H 92 L 08/20/19 08:00 08/20/19 08:00 08/20/19 08:00 08/20/19 08:00 08/20/19 08:00 Laboratory Results - last 24 hr 08/20/19 03:00: WBC 9.9, RBC 4.11 L, Hgb 12.5, Hct 39.0, MCV 95.0, MCH 30.5, MCHC 32.2, RDW 13.3, Plt Count 238, MPV 9.7, Neut % (Auto) 63.7, Lymph % (Auto) 27.6, [place] % (Auto) 6.0, Eos % (Auto) 2.2, Baso % (Auto) 0.5, Neut # (Auto) 6.3, Lymph # (Auto) 2.7, [place] # (Auto) 0.6, Eos # (Auto) 0.2, Baso # (Auto) 0.1, ESR 24 08/20/19 03:00: Sodium 136, Potassium 3.7, Chloride 102, Carbon Dioxide 27, Anion Gap 10.7, BUN 12, Creatinine 0.81, Estimated Creat Clear 132, Estimated GFR 72, Est GFR ( Amer) 87, Glucose 245 H, Calcium 8.6, Troponin I 0.03, C-Reactive Protein 2.5 H 08/20/19 03:00: Total Bilirubin 0.6, Direct Bilirubin 0.2, Indirect Bilirubin 0.4, AST 19, ALT 29, Alkaline Phosphatase 121 H, Total Protein 7.2, Albumin 3.3 L 08/20/19 03:00: B-Natriuretic Peptide 227 H 08/20/19 06:11: POC Glucose 260 H I & O for Last 24 hours: Intake & Output 08/17/19 08/18/19 08/19/19 08/20/19 11:59 11:59 11:59 11:59 Intake Total 0 / 0 Output Total 1800 / 1800 Balance -1800 / -1800 Weight 263 lb 7 oz - Constitutional no acute distress, obese - *Routine HEENT Exam Head: Present: normocephalic Eye: Present: PERRL ENT: Present: mucous membranes moist - *Routine Neck Exam Present: supple. Absent: lymphadenopathy - *Routine Respiratory Exam Present: CTA bilaterally - *Routine Cardiovascular Exam Present: irregular rhythm - *Routine Abdominal Exam Present: soft, normoactive bowel sounds. Absent: tenderness - *Routine Extremities Exam Present: full ROM. Absent: cyanosis, clubbing, edema - *Routine Skin Exam Present: intact, warm. Absent: rash - *Routine Neurological Exam Present: alert, oriented X3 - Routine Psychiatric Exam Present: normal affect, normal thought process Assessment and Plan (1) A-fib Current visit: Yes Status: Acute Qualifiers: Atrial fibrillation type: unspecified Qualified Code(s): I48.91 - Unspecified atrial fibrillation Category: Medical Code(s): I48.91 - Unspecified atrial fibrillation (2) Congestive heart failure Current visit: Yes Status: Acute Qualifiers: Heart failure type: unspecified Heart failure chronicity: acute on chronic Qualified Code(s): I50.9 - Heart failure, unspecified Category: Medical Code(s): I50.9 - Heart failure, unspecified (3) Obesity Current visit: Yes Status: Acute Qualifiers: Obesity type: due to excess calories Obesity classification: adult class 3 (BMI >= 40) Serious obesity comorbidity presence: with serious comorbidity Body mass index: BMI 40.0-44.9 Qualified Code(s): E66.01 - Morbid (severe) obesity due to excess calories; Z68.41 - Body mass index (BMI) 40.0-44.9, adult Category: Medical Code(s): E66.9 - Obesity, unspecified (4) Biventricular cardiac pacemaker in situ Current visit: Yes Status: Chronic Category: Medical Code(s): Z95.0 - Presence of cardiac pacemaker (5) HHD (hypertensive heart disease) Current visit: No Status: Chronic Qualifiers: Heart failure presence: with heart failure Heart failure type: combined systolic and diastolic Heart failure chronicity: chronic Qualified Code(s): I11.0 - Hypertensive heart disease with heart failure; I50.42 - Chronic combined systolic (congestive) and diastolic (congestive) heart failure Category: Medical Code(s): I11.9 - Hypertensive heart disease without heart failure (6) HLD (hyperlipidemia) Current visit: No Status: Chronic Qualifiers: Hyperlipidemia type: mixed hyperlipidemia Qualified Code(s): E78.2 - Mixed hyperlipidemia Category: Medical Code(s): E78.5 - Hyperlipidemia, unspecified - Assessment and plan all Dx Assessment and Plan for all problems:: Rounded with Dr. Conrad all orders per [place] DANIS with possible cardioversion today
--- NOTE | 2019-08-20 13:43 | Progress Note ---
[facility] Anesthesia Checklist - Patient Identification Patient Identification: Arm Band, Verbal (Name & ) - Structural Data Admitted From: Inpatient Planned Operative Procedure/s: DANIS Consent for Planned Operative Procedure(s) Verified: Yes Verified Documents: Surgical Consent, History and Physical - NPO Status Verified Time NPO: 17:00 - Chart Verification Results Verified: CBC, BMP - Additional verifications Anesthesia Reactions: No - Airway Assessment C-Spine Mobility Assessed: Yes TMJ Mobility Assessed: Yes Dentition: Edentulous - Neurological Assessment Level of Consciousness: Awake, Alert, Appropriate, Follows Commands Hx Seizures: No Numbness or tingling in extremities: No - Anesthesia Plan Anesthesia Risk discussed: Yes Anesthesia Plan: Verified ASA Class: IV Anesthesia Type: [facility] History I have reviewed the patient's past medical history: Yes Medical History: Reports:: Arrhythmia, Atrial Fibrillation, Congestive Heart Failure, Chronic Obstructive Pulmonary Disease (COPD), Diabetes Mellitus Type 2, Gastroesophageal Reflux Disease(GERD), Hyperlipidemia, Hypertension, Internal Pacemaker *Have you ever received a pneumonia vaccine?: Yes *Have you received a flu vaccine this season?: No Anesthesia experience/problems:: none Other Surgeries: Yes: Cardiac Catheterization, Cholecystectomy, Colonoscopy, Pacemaker, Tubal Ligation - *Social History Educational Level: Completed College Smoking Status: Former smoker Tobacco Type: cigarettes # Packs/Day (cigarettes): 0 #Yrs smoked (if former smoker): 20 Alcohol Intake: never Substance Use Type: denies use *Occupational Status:: unemployed, disabled Household Members: family *Travel in the last 8 weeks: None Family Hx:: Cancer, Coronary Artery Disease, Diabetes, Heart Attack, Hyperlipidemia, Hypertension, Stroke, Alcoholism
--- NOTE | 2019-08-20 15:41 | Cardiology Report ---
APPROVED REPORT EXAM: Comprehensive 2D, Doppler, and color-flow Echocardiogram Ball Fringe Machine Operator: Sheri Parada RDCS Ht: 5 ft 8 in Wt: 250lbs BSA: 2.25 BP: 160/89 mmHg Indications: AF,REDUCED EF DANIS Procedure After obtaining informed consent, patient underwent transesophageal echo in the ICU. Type of Sedation : Conscious Sedation Sedation was administered by Allen BoyerR.N.A. Transesophageal probe was inserted and advanced into esophagus without difficulty by Dr. Cory Pastor. The DANIS was performed without complications. Throughout the procedure, the blood pressure, pulse oximetry, cardiac rhythm, and rate were monitored. The patient tolerated the procedure without adverse effects. Recovery from conscious sedation was uneventful and vital signs were stable. Left Ventricle Left ventricle is mildly dilated, there is severely reduced left ventricular systolic function, visually estimated ejection fraction 30%, left ventricle is globally hypokinetic. Right Ventricle right ventricular mildly enlarged, contractility of the right ventricle is normal, there is a pacemaker lead seen in the right atrium and right ventricle. Atria Left atrium is moderately enlarged, there is no thrombus seen in the left atrium or left atrial appendage. There is poor appendage flow by spectral Doppler. Right atrium is mildly enlarged. Intra-atrial septum is intact, there is no flow across the interatrial septum, agitated saline contrast fails to identify intracardiac shunt. Aortic Valve Aortic valve is thickened and calcified, there is no aortic stenosis aortic insufficiency. Mitral Valve Mitral valve is grossly normal, there is moderate mitral regurgitation. Tricuspid Valve Tricuspid valve is grossly normal, there is moderate tricuspid regurgitation. Pulmonic Valve Pulmonic valve is grossly normal. Great Vessels Aortic root is normal size. No dissection noted Pericardium No significant pericardial effusion noted. Conclusion 1. Biatrial enlargement, there is no thrombus seen in left atrium or left atrial appendage, there is poor appendage flow by spectral Doppler. 2. Dilated left ventricle with reduced left ventricular systolic function, visually estimated ejection fraction 30% with left ventricle globally hypokinetic. 3. Moderate mitral and tricuspid regurgitation 4. Agitated saline contrast study fails to identify intracardiac shunt. 5. No significant pericardial effusion noted.
[2019-08-21 06:06] LABS: Anion Gap 8.9 mEq/L (5-15); Calcium 8.3 mg/dL (8.5-10.1)
--- NOTE | 2019-08-21 08:12 | Electrocardiograph Report ---
APPROVED REPORT Exam: Resting ECG HR:98 bpm ECG Measurements Heart Rate 98 AXES QRSd 136 QRS 54 QT 350 T202 QTc 446 <Conclusion> Atrial fibrillation with premature ventricular or aberrantly conducted complexes Nonspecific intraventricular block Abnormal ECG Electronically signed by : Eric Oglesby, 08/21/2019 08:11:56
--- NOTE | 2019-08-21 10:15 | Progress Note ---
Subjective Date: 08/21/19 Time: 10:11 Principal diagnosis: A. fib, Nonischemic cardiomyopathy Interval history: 59-year-old white female in bed in no acute distress. States her shortness of breath and swelling have improved. She did undergo successful cardioversion to sinus rhythm yesterday. Telemetry shows intermittent atrial pacing with biventricular pacing. Patient is ready to go home. Exam Vital signs and Labs for Last 24 Hours: Temp Pulse Resp BP Pulse Ox 97.6 F 60 17 152/73 H 93 L 08/21/19 08:00 08/21/19 08:00 08/21/19 08:00 08/21/19 08:00 08/21/19 08:00 Laboratory Results - last 24 hr 08/20/19 11:57: POC Glucose 269 H 08/20/19 16:32: POC Glucose 290 H 08/20/19 20:50: POC Glucose 438 H* 08/21/19 05:45: Sodium 135 L, Potassium 3.9, Chloride 101, Carbon Dioxide 29, Anion Gap 8.9, BUN 21 H D, Creatinine 0.79, Estimated Creat Clear 71, Estimated GFR 74, Est GFR ( Amer) 90, Glucose 241 H, Calcium 8.3 L, Magnesium 1.5 08/21/19 06:00: POC Glucose 218 H I & O for Last 24 hours: Intake & Output 08/18/19 08/19/19 08/20/19 08/21/19 11:59 11:59 11:59 11:59 Intake Total 0 / 0 720 / 720 Output Total 1999 1800 / 1800 Balance -1999 / -1080 / -1080 Weight 263 lb 7 oz 263 lb 6.991 oz - *Routine HEENT Exam Head: Present: normocephalic Eye: Present: EOMI, PERRL ENT: Present: mucous membranes moist - *Routine Respiratory Exam Present: CTA bilaterally. Absent: accessory muscle use, rales, rhonchi, wheezes - *Routine Cardiovascular Exam Present: RRR. Absent: murmur, gallop, rubs - *Routine Abdominal Exam Present: soft. Absent: tenderness, distended, guarding - *Routine Extremities Exam Absent: edema, calf tenderness - *Routine Neurological Exam Present: alert, oriented X3, moving all extremities Progress Note: A&P (1) Congestive heart failure Status: Acute Current Visit: Yes (2) Diabetes mellitus Status: Acute Current Visit: Yes (3) Obesity Status: Acute Current Visit: Yes (4) Biventricular cardiac pacemaker in situ Status: Chronic Current Visit: Yes (5) PAF (paroxysmal atrial fibrillation) Status: Acute Current Visit: No (6) COPD (chronic obstructive pulmonary disease) Status: Chronic Current Visit: No (7) Cardiomyopathy Status: Chronic Current Visit: No (8) Dyspnea Status: Chronic Current Visit: No (9) HHD (hypertensive heart disease) Status: Chronic Current Visit: No (10) HLD (hyperlipidemia) Status: Chronic Current Visit: No Assessment and Plan for All Diagnoses:: 1. Stable from a cardiac standpoint for discharge home 2. Home medication recommendations: Metoprolol succinate XL 50 mg daily, amiodarone 200 mg daily, Entresto 24/26 mg twice daily, aspirin 81 mg daily, Lasix 40 mg daily, potassium 20 mEq daily 3. Limit use of salt and only drink water when thirsty 4. Follow-up in 1 to 2 weeks with BMP and BNP on the day of visit 5. Patient is to weigh herself daily
--- NOTE | 2019-08-21 12:49 | Discharge Summary ---
General - General Admission date:: 08/20/19 Discharge date: 08/21/19 HPI HPI: 59 yr old female presents to ed with c/o shortness of air over the last 3 days having progressively gotten worse when she lays down or with exertion. Patient states she was recently diagnosed with A. fib and is seeing Dr. Kate and has recently started treatment.patient denies any chest pain at this time patient admitted for A. fib and increasing shortness of air. Patient will have a cardiology consult. 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 Biatrial enlargement, there is no thrombus seen in left atrium or left atrial appendage, there is poor appendage flow by spectral Doppler. 2. Dilated left ventricle with reduced left ventricular systolic function, visually estimated ejection fraction 30% with left ventricle globally hypokinetic. 3. Moderate mitral and tricuspid regurgitation 4. Agitated saline contrast study fails to identify intracardiac shunt. 5. No significant pericardial effusion noted. cardiology consult: see notes.recommendations: 1. Stable from a cardiac standpoint for discharge home 2. Home medication recommendations: Metoprolol succinate XL 50 mg daily, amiodarone 200 mg daily, Entresto 24/26 mg twice daily, aspirin 81 mg daily, Lasix 40 mg daily, potassium 20 mEq daily 3. Limit use of salt and only drink water when thirsty 4. Follow-up in 1 to 2 weeks with BMP and BNP on the day of visit 5. Patient is to weigh herself daily Pt will be dc home with changes to meds. follow up with cardiology next week. Objective Vital signs: Temp Pulse Resp BP Pulse Ox 98.1 F 75 21 153/112 H 95 08/21/19 12:00 08/21/19 12:00 08/21/19 12:00 08/21/19 12:00 08/21/19 12:00 no acute distress, morbidly obese - *Routine HEENT Exam Head: Present: normocephalic Eye: Present: PERRL ENT: Present: mucous membranes moist - *Routine Respiratory Exam Present: CTA bilaterally - *Routine Cardiovascular Exam Present: RRR - *Routine Extremities Exam Present: full ROM, normal capillary refill - *Routine Skin Exam Present: intact - *Routine Neurological Exam Present: alert, oriented X3 - Routine Psychiatric Exam Present: normal affect Results Labs on day of discharge: Labs from last 24 hours 08/21/19 08/21/19 08/20/19 06:00 05:45 20:50 Sodium 135 L Potassium 3.9 Chloride 101 Carbon Dioxide 29 Anion Gap 8.9 BUN 21 H D Creatinine 0.79 Estimated Creat Clear 71 Estimated GFR 74 Est GFR ( Amer) 90 Glucose 241 H POC Glucose 218 H 438 H* Calcium 8.3 L Magnesium 1.5 08/20/19 16:32 Sodium Potassium Chloride Carbon Dioxide Anion Gap BUN Creatinine Estimated Creat Clear Estimated GFR Est GFR ( Amer) Glucose POC Glucose 290 H Calcium Magnesium - Additional Comments rounded with Dr Rg all orders per Dr rg DS: Diagnosis - Discharge Diagnosis (1) Congestive heart failure Status: Acute (2) Diabetes mellitus Status: Acute (3) Obesity Status: Acute (4) Biventricular cardiac pacemaker in situ Status: Chronic (5) PAF (paroxysmal atrial fibrillation) Status: Acute (6) COPD (chronic obstructive pulmonary disease) Status: Chronic (7) Cardiomyopathy Status: Chronic (8) Dyspnea Status: Chronic (9) HHD (hypertensive heart disease) Status: Chronic (10) HLD (hyperlipidemia) Status: Chronic Discharge Plan - Patient Discharge Instructions ACTIVITY: Continue current activity DIET: continue same diet Patient Instructions: Heart Failure, Atrial Fibrillation, Pneumococcal Vaccine, DI for Heart Failure, DI for Chronic Obstructive Pulmonary Disease, DI for Atrial Fibrillation - Follow up Plan Follow up with: Jeffrey Bruce APRN [Nurse Practitioner] - 08/26/19 Disposition: Home, Self-Half-Way Medications: Home Medications Medication Instructions Recorded Confirmed Type albuterol sulfate HFA 90 2 puff IH Q6HP PRN 06/04/19 08/20/19 History mcg/actuation aerosol inhaler azelastine-fluticasone 137 mcg-50 1 spray INTRANASAL BID 06/04/19 08/20/19 History mcg/spray nasal spray citalopram 20 mg tablet 20 mg PO DAILY 06/04/19 08/20/19 History glipizide 5 mg tablet 5 mg PO DAILY 06/04/19 08/20/19 History metformin ER 1,000 mg 1,000 mg PO HS 06/04/19 08/20/19 History tablet,extended release 24hr montelukast 10 mg tablet 10 mg PO HS 06/04/19 08/20/19 History potassium chloride ER 20 mEq 20 meq PO DAILY 06/04/19 08/20/19 History tablet,extended release aspirin 81 mg tablet,delayed 81 mg PO DAILY 07/31/19 08/20/19 History release Amiodarone HCl 200 mg PO BID 08/20/19 08/20/19 History Apixaban [Eliquis] 5 mg PO BID 08/20/19 08/20/19 History Metoprolol Succinate 25 mg PO HS 08/20/19 08/20/19 History Sacubitril/Valsartan [Entresto 24 1 each PO BID 08/20/19 08/20/19 History mg-26 mg Tablet] Amiodarone HCl [Cordarone 200mg 200 mg PO DAILY 2 Days #30 tab 08/21/19 Rx tablet] Furosemide [Lasix 40mg tablet] 40 mg PO DAILY 30 Days #30 tab 08/21/19 Rx Prescriptions/Medication Reconciliation: New Furosemide [Lasix 40mg tablet] 40 mg PO DAILY 30 Days #30 tab Amiodarone HCl [Cordarone 200mg tablet] 200 mg PO DAILY 2 Days #30 tab Continued albuterol sulfate HFA 90 mcg/actuation aerosol inhaler 2 puff IH Q6HP PRN PRN Reason: COPD glipizide 5 mg tablet 5 mg PO DAILY potassium chloride ER 20 mEq tablet,extended release 20 meq PO DAILY montelukast 10 mg tablet 10 mg PO HS metformin ER 1,000 mg tablet,extended release 24hr 1,000 mg PO HS citalopram 20 mg tablet 20 mg PO DAILY azelastine-fluticasone 137 mcg-50 mcg/spray nasal spray 1 spray INTRANASAL BID aspirin 81 mg tablet,delayed release 81 mg PO DAILY Metoprolol Succinate 25 mg PO HS Sacubitril/Valsartan [Entresto 24 mg-26 mg Tablet] 1 each PO BID Apixaban [Eliquis] 5 mg PO BID Discontinued Amiodarone HCl 200 mg PO BID - Problem Reconciliation Problems Reviewed?: Yes
--- OUTSIDE RECORDS SUMMARY | 2019-08-21 14:49 | External Medical Summary | Continuity of Care Document ---
:1960 Author Organization [facility] Address [address] [employer] [id number] Phone Care Team Providers Name Role Phone Vaishnavi Primary Care Provider Vaishnavi Attending Provider Kiran Conrad Primary Care Provider Criselda Attending Provider Humble Attending Provider David Primary Care Provider David Attending Provider Bita Mohamud Attending Provider Katia Attending Provider Kiran Conrad Attending Provider Allergies, Adverse Reactions, Alerts Allergen Type Severity Reaction Last Updated Verified Status morphine Allergy Mild Yes Active tramadol Allergy Mild Nausea Yes Active Medications Medication Status Dose Units Route Sig Qty Days Start End Instruct ions Date Date Albuterol Active 2 PUFF INHALATION Every 6 May Sulfate hours as 2018 needed 10:25am Glipizide Active 5 MG Oral Daily June 04, 2019 10:27am Potassium Active 20 MEQ Oral Daily May 10:29am Montelukast Active 10 MG Oral At May Sodium bedtime 2018 nightly 10:29am Metformin Hcl Active 1000 MG Oral At May nightly 10:30am Citalopram Active 20 MG Oral Daily May Hydrobromid2018 10:35am Azelastine/Fl Active 1 SPRAY Intranasal Twice a May uticasone 2018 10:38am Aspirin Active 81 MG Oral Daily July 31, 2019 12:51pm Apixaban Active 5 MG Oral Twice a July 4:26am Metoprolol Active 25 MG Oral At July bed, nightly 2018 4:26am Sacubitril/Va Active 1 EACH Oral Twice a July lsartan 2018 10:09am Amiodarone Active 200 MG Oral Daily July 12:59pm Furosemide Active 40 MG Oral Daily August 21, 2019 12:59pm Problems Active Problems Medical Problem Onset Date Status COPD with exacerbation Active Diabetes mellitus Active Congestive heart failure Active A-fib Active Cough Active Dyspnea Active HLD (hyperlipidemia) Active Benign neoplasm of left femur Active PAF (paroxysmal atrial fibrillation) Act angel COPD (chronic obstructive pulmonary Acti ve disease) COPD exacerbation Active Cardiomyopathy Active Pneumonia Active HHD (hypertensive heart disease) Active Obesity Active Biventricular cardiac pacemaker in Activ e situ Procedures Procedure Date Performed Status XR chest 2V August 20, 2019 completed ECG initial Besson August 20, 2019 completed Transesophageal Echocardiogram August 20, 2019 1:30pm co mpleted XR chest 2V August 14, 2019 completed Cardiac Cath August 03, 2019 11:45am completed US Arterial Lower Ext Rest August 06, 2019 completed NM clark perf SPECT rest & str July 21, 2019 completed XR chest 2V June 27, 2019 completed ECG initial Bradford June 27, 2019 completed Blood Culture June 27, 2019 completed XR knee LT 4V June 19, 2019 completed XR chest 2V June 10, 2019 completed XR femur LT V June 10, 2019 completed Relevant Diagnostic Tests and/or Laboratory Data Laboratory Results Test Date/Time Result Interpretation Reference Result Comment Performing Range Site White Blood Count May 6.3 4.8-10.8 [facility], [address] [place] [address] 2018 K/[place]3 [place] [address] 12:56pm White Blood Count May 8.0 4.8-10.8 [facility], [address] [place] [address] 36 E 2018 K/mm[place] [address] 2:25pm White Blood Count July 9.2 4.8-10.8 [facility], [address] [place] [address] 36 E 2018 K/mm[place] [address] 8:30am White Blood Count July 9.9 4.8-10.8 [facility], [address] [place] [address] 36 E 2018 K/[place] [address] 3:00am Red Blood Count May 4.42 4.20-5.40 [facility], [address] [place] [address] 2018 M/[place]3 [place] [address] 12:56pm Red Blood Count May 4.41 4.20-5.40 [facility], [address] [place] [address] E 2018 M/mm3 [place] [address] 2:25pm Red Blood Count July 4.87 4.20-5.40 [facility], [address] [place] [address] 2018 M/mm3 [place] [address] 8:30am Red Blood Count July 4.11 4.20-5.40 [facility], [address] [place] [address] 2018 M/mm3 [place] [address] 3:00am Hemoglobin May 13.2 12.2-16.2 [facility], [address] [place] [address] 2018 g/[place] [address] 12:56pm Hemoglobin May 12.6 12.2-16.2 [facility], [address] [place] [address] 2018 g/[place] [address] 2:25pm Hemoglobin July 14.5 12.2-16.2 [facility], [address] [place] [address] 2018 g/[place] [address] 8:30am Hemoglobin July 12.5 12.2-16.2 [facility], [address] [place] [address] E 2018 g/[place] [address] 3:00am Hematocrit May 41.4 % 37.0-47.0 [facility], [address] [place] [address] 2018 [place] [address] 12:56pm Hematocrit May 41.3 % 37.0-47.0 [facility], [address] [place] [address] 36 E 2018 [place] [address] 2:25pm Hematocrit July 46.7 % 37.0-47.0 [facility], [address] [place] [address] 36 E 2018 [place] [address] 8:30am Hematocrit July 39.0 % 37.0-47.0 [facility], [address] [place] [address] 36 E 2018 [place] [address] 3:00am Mean Corpuscular Viri 93.7 fl 81-99 [facility], [address] [place] [address] E Volume 2018 [place] [address] 12:56pm Mean Corpuscular May 93.5 fl 81-99 [facility], [address] [place] [address] E Volume 2018 [place] [address] 2:25pm Mean Corpuscular July 95.9 fl 81-99 [facility], [address] [place] [address] E Volume 2018 [place] [address] 8:30am Mean Corpuscular November 95.0 fl 81-99 [facility], [address] [place] [address] E Volume 2018 [place] [address] 3:00am Mean Corpuscular May 29.9 pg 27.0-31.2 [facility], [address] [place] [address] E Hemoglobin 2018 Cyntravis anderson [place] [address] 12:56pm Mean Corpuscular May 28.5 pg 27.0-31.2 [facility], [address] [place] [address] E Hemoglobin 2018 Cynjenaroan justin [place] [address] 2:25pm Mean Corpuscular July 29.8 pg 27.0-31.2 [facility], [address] [place] [address] 36 E Hemoglobin 2018 [place] [address] 8:30am Mean Corpuscular July 30.5 pg 27.0-31.2 [facility], [address] [place] [address] E Hemoglobin 2018 Cyntravis anderson [place] [address] 3:00am Mean Corpuscular May 31.9 31.8-35.4 [facility], [address] [place] [address] E Hemoglobin 2018 g/dL Cyntravis [place] [address] Concent 12:56pm Mean Corpuscular Viri 30.5 31.8-35.4 [facility], [address] [place] [address] 36 E Hemoglobin 2018 g/dL Isabella [place]UG[place] [address] Concent 2:25pm Mean Corpuscular November 31.1 31.8-35.4 [facility], [address] [place] [address] 36 E Hemoglobin 2018 g/dL [place] [address] Concent 8:30am Mean Corpuscular July 32.2 31.8-35.4 [facility], [address] [place] [address] 36 E Hemoglobin 2018 g/dL Isabella [place] [address] Concent 3:00am Red Cell May 12.7 % 11.5-17.5 [facility], [address] [place] [address] E Distribution 2018 Cynjenaro [place] [address] Width 12:56pm Red Cell May 13.4 % 11.5-17.5 [facility], [address] [place] [address] E Distribution 2018 Cynjenaro D[place] [address] Width 2:25pm Red Cell July 12.6 % 11.5-17.5 [facility], [address] [place] [address] 36 E Distribution 2018 [place] [address] Width 8:30am Red Cell July 13.3 % 11.5-17.5 [facility], [address] [place] [address] E Distribution 2018 Cynjenaro DUGAN [address] Width 3:00am Platelet Count May 230 142-424 [facility], [address] [place] [address] 36 E 2018 K/mm3 [place] [address] 12:56pm Platelet Count May 257 142-424 [facility], [address] [place] [address] 36 E 2018 K/mm3 [place] [address] 2:25pm Platelet Count July 281 142-424 [facility], [address] [place] [address] 36 E 2018 K/mm3 [place] [address] 8:30am Platelet Count July 238 142-424 [facility], [address] [place] [address] 36 E 2018 K/mm3 [place] [address] 3:00am Mean Platelet May 8.9 fl 7.4-10.4 [facility], [address] [place] [address] E Volume 2018 [place] 12:56pm Mean Platelet May 9.3 fl 7.4-10.4 [facility], [address] [place] [address] E Volume 2018 [place] 2:25pm Mean Platelet July 9.1 fl 7.4-10.4 [facility], [address] [place] [address] E Volume 2018 [place] 8:30am Mean Platelet July 9.7 fl 7.4-10.4 [facility], [address] [place] [address] E Volume 2018 [place] 3:00am Neutrophils (%) May 57.2 % 37.0-80.0 [facility], [address] [place] [address] E (Auto) 2018 [place] 12:56pm Neutrophils (%) May 50.4 % 37.0-80.0 [facility], [address] [place] [address] E (Auto) 2018 [place] 2:25pm Neutrophils (%) July 63.7 % 37.0-80.0 [facility], [address] [place] [address] E (Auto) 2018 [place] 8:30am Neutrophils (%) July 63.7 % 37.0-80.0 [facility], [address] [place] [address] E (Auto) 2018 [place] 3:00am Lymphocytes (%) May 25.7 % -50 [facility], [address] [place] [address] E (Auto) 2018 [place] Pires31 12:56pm Lymphocytes (%) May 37.8 % 10-50 [facility], [address] [place] [address] E (Auto) 2018 [place] Pires31 2:25pm Lymphocytes (%) July 25.8 % 1050 [facility], [address] [place] [address] E (Auto) 2018 [place] Goodman 8:30am Lymphocytes (%) July 27.6 % -50 [facility], [address] [place] [address] E (Auto) 2018 [place] Pires31 3:00am Monocytes (%) May 11.1 % 1.7-9.3 [place] [facility], [address] [place] [address] E (Auto) 2018 [place] [address] 12:56pm Monocytes (%) May 8.1 % 1.7-9.3 [place] [facility], [address] [place] [address] E (Auto) 2018 [place] [address] 2:25pm Monocytes (%) July 7.7 % 1.7-9.3 [place] [facility], [address] [place] [address] E (Auto) 2018 [place] [address] 8:30am Monocytes (%) July 6.0 % 1.7-9.3 [place] [facility], [address] [place] [address] E (Auto) 2018 [place] [address] 3:00am Eosinophils (%) May 5.2 % 0.1-12.0 [place] [address] E (Auto) 2018 [place] [address] 12:56pm Eosinophils (%) May 3.2 % 0.1-12.0 [place] [address] E (Auto) 2018 [place] [address] 2:25pm Eosinophils (%) July 2.1 % 0.1-12.0 [facility], [address] [place] [address] E (Auto) 2018 [place] [address] 8:30am Eosinophils (%) July 2.2 % 0.1-12.0 [place] [address] E (Auto) 2018 [place] [address] 3:00am Basophils (%) May 0.8 % 0.1-2.0 [facility], [address] [place] [address] E (Auto) 2018 [place] [address] 12:56pm Basophils (%) May 0.6 % 0.1-2.0 [facility], [address] [place] [address] E (Auto) 2018 [place] [address] 2:25pm Basophils (%) July 0.7 % 0.1-2.0 [facility], [address] [place] [address] E (Auto) 2018 [place] [address] 8:30am Basophils (%) July 0.5 % 0.1-2.0 [place] [address] [place] [address] E (Auto) 2018 [place] [address] 3:00am Neutrophils # May 3.6 1.8-7.8 [place] [facility], [address] [place] [address] 36 E (Auto) 2018 K/mm3 [place] [address] 12:56pm Neutrophils # May 4.0 1.8-7.8 [place] [facility], [address] [place] [address] 36 E (Auto) 2018 K/mm3 [place] [address]898 2:25pm Neutrophils # July 5.9 1.8-7.8 [place] [facility], [address] [place] [address] 36 E (Auto) 2018 K/mm3 [place] [address] 8:30am Neutrophils # July 6.3 1.8-7.8 [place] [facility], [address] [place] [address] 36 E (Auto) 2018 K/mm3 [place] [address] 3:00am Lymphocytes # May 1.6 0.7-4.5 [place] [facility], [address] [place] [address] 36 E (Auto) 2018 K/mm3 [place] [address] 12:56pm Lymphocytes # May 3.0 0.7-4.5 [place] [facility], [address] [place] [address] 36 E (Auto) 2018 K/mm3 [place] [address] 2:25pm Lymphocytes # July 2.4 0.7-4.5 [place] [facility], [address] [place] [address] 36 E (Auto) 2018 K/mm3 [place] [address]237 8:30am Lymphocytes # July 2.7 0.7-4.5 [place] [facility], [address] [place] [address] 36 E (Auto) 2018 K/mm3 [place] 65549 3:00am Monocytes # May 0.7 0.1-1.0 [facility], [address] [place] [address] 36 E (Auto) 2018 K/mm3 [place] [address]98[address] 12:56pm Monocytes # May 0.7 0.1-1.0 [facility], [address] [place] [address] 36 E (Auto) 2018 K/mm3 [place] [address]4088 2:25pm Monocytes # July 0.7 0.1-1.0 [facility], [address] [place] [address] 36 E (Auto) 2018 K/[place]3 [place] [address] 8:30am Monocytes # July 0.6 0.1-1.0 [facility], [address] [place] [address] E (Auto) 2018 K/mm3 [place] [address] 3:00am Eosinophils # May 0.3 0.0-0.4 [facility], [address] [place] [address] E (Auto) 2018 K/mm3 [place] [address] 12:56pm Eosinophils # May 0.3 0.0-0.4 [facility], [address] [place] [address] E (Auto) 2018 K/mm3 [place] [address] 2:25pm Eosinophils # July 0.2 0.0-0.4 [facility], [address] [place] [address] E (Auto) 2018 K/mm3 [place] [address] 8:30am Eosinophils # July 0.2 0.0-0.4 [facility], [address] [place] [address] E (Auto) 2018 K/mm3 [place] [address] 3:00am Basophils # May 0.1 0-0.2 [facility], [address] [place] [address] E (Auto) 2018 K/mm3 [place] [address] 12:56pm Basophils # May 0.1 0-0.2 [facility], [address] [place] [address] E (Auto) 2018 K/mm3 [place] [address] 2:25pm Basophils # July 0.1 0-0.2 [facility], [address] [place] [address] E (Auto) 2018 K/mm3 [place] [address] 8:30am Basophils # July 0.1 0-0.2 [facility], [address] [place] [address] E (Auto) 2018 K/mm3 [place] [address] 3:00am Erythrocyte July 24 0-30 [facility], [address] [place] [address] E Sedimentation 2018 mm/hr Roz [place]UG[place] 62619 Rate 3:00am Troponin I May 0.03 0.00-0.06 *ALERT* High [facility], [address] [place] [address] E 2018 ng/[place] [address] 2:25pm Biotin can falsely depress Troponin results.Many dietary supplements promoted for hair,skin, and nail benefits contain biotin levels up to 650 times the recommended daily intake of biotin. In additon to dietary supplements, Biotin is occasionally prescribed for medical conditions. Troponin I July 0.03 0.00-0.06 *ALERT* High [facility], [address] [place] [address] 36 E 2018 ng/[place] [address] 3:00am Biotin can falsely depress Troponin results.Many dietary supplements promoted for hair,skin, and nail benefits contain biotin levels up to 650 times the recommended daily intake of biotin. In additon to dietary supplements, Biotin is occasionally prescribed for medical conditions. Sodium Level May 138 136-145 [facility], [address] [place] [address] 36 E 2018 mmol/[place] [address] 10:41am Sodium Level May 139 136-145 [facility], [address] [place] [address] 36 E 2018 mmol/[place] [address] 2:25pm Sodium Level July 137 136-145 [facility], [address] [place] [address] 36 E 2018 mmol/[place] [address] 8:30am Sodium Level July 135 136-145 [facility], [address] [place] [address] 36 E 2018 mmol/[place] [address] 5:45am Potassium Level May 4.3 3.5-5.1 [facility], [address] [place] [address] 36 E 2018 mmoL/[place] [address] 10:41am Potassium Level May 3.5 3.5-5.1 [facility], [address] [place] [address] 36 E 2018 mmoL/[place] [address] 2:25pm Potassium Level July 3.6 3.5-5.1 [facility], [address] [place] [address] 36 E 2018 mmoL/[place] [address] 8:30am Potassium Level July 3.9 3.5-5.1 [facility], [address] [place] [address] 36 E 2018 mmoL/[place] [address] 5:45am Chloride Level May 98-107 [facility], [address] [place] [address] 36 E 2018 mmol/[place] [address] 10:41am Chloride Level May- [facility], [address] [place] [address] 36 E 2018 mmol/[place] [address] 2:25pm Chloride Level July [facility], [address] [place] [address] 36 E 2018 mmol/[place] [address] 8:30am Chloride Level July [facility], [address] [place] [address] 36 E 2018 mmol/[place] [address] 5:45am Carbon Dioxide June 28 21.0-32.0 [facility], [address] [place] [address] E Level 2018 mmol/[place] [address] 10:41am Carbon Dioxide June 29 21.0-32.0 [facility], [address] [place] [address] E Level 2018 mmol/[place] [address] 2:25pm Carbon Dioxide July 21.0-32.0 [facility], [address] [place] [address] E Level 2018 mmol/[place] [address] 8:30am Carbon Dioxide August 28 21.0-32.0 [facility], [address] [place] [address] E Level 2018 mmol/[place] [address] 5:45am Anion Gap May 13.3 02-11 [facility], [address] [place] [address] 36 E 2018 mEq/[place] [address] 10:41am Anion Gap May 10.5 02-11 [facility], [address] [place] [address] 36 E 2018 mEq/[place] [address] 2:25pm Anion Gap July 10.6 02-11 [facility], [address] [place] [address] 36 E 2018 mEq/[place] [address] 8:30am Anion Gap July 8.9 02-11 [facility], [address] [place] [address] 36 E 2018 mEq/[place] [address] 5:45am Blood Urea June 0904-16 [facility], [address] [place] [address] 36 E Nitrogen 2018 mg/[place] [address] 10:41am Blood Urea May 9 mg/dL 04-16 [facility], [address] [place] [address] 36 E Nitrogen 2018 [place] [address] 2:25pm Blood Urea August 0904-16 [facility], [address] [place] [address] 36 E Nitrogen 2018 mg/[place] [address] 8:30am Blood Urea August 2004-16 [place]: 12 on [facility], [address] [place] [address] 36 E Nitrogen , 2018 mg/dL 08/20/19-0300 [place] [address] 5:45am Creatinine May 0.66 0.55-1.02 [facility], [address] [place] [address] 36 E , 2018 mg/[place] [address] 10:41am Creatinine May 0.71 0.55-1.02 [facility], [address] [place] [address] 36 E 2018 mg/[place] [address] 2:25pm Creatinine July 0.73 0.55-1.02 [facility], [address] [place] [address] E 2018 mg/[place] [address] 8:30am Creatinine July 0.79 0.55-1.02 [facility], [address] [place] [address] E 2018 mg/[place] [address] 5:45am Estimated May 151 0-300 [facility], [address] [place] [address] 36 E Creatinine 2018 mL/[place] [address] Clearance 2:25pm Estimated July 77 0-300 [facility], [address] [place] [address] 36 E Creatinine 2018 mL/[place] [address] Clearance 8:30am Estimated July 0-300 [facility], [address] [place] [address] 36 E Creatinine 2018 mL/[place] [address] Clearance 5:45am Estimated GFR May 111 >59 [facility], [address] [place] [address] 36 E ( 2018 ML/[place] [address] Tuvaluan) 10:41am Estimated GFR May 102 >59 [facility], [address] [place] [address] 36 E ( 2018 ML/[place] [address] Tu[place]uan) 2:25pm Estimated GFR July 98 >59 [facility], [address] [place] [address] 36 E ( 2018 ML/[place] [address] Tu[place]uan) 8:30am Estimated GFR July >59 [facility], [address] [place] [address] E ( 2018 ML/[place] [address] Tuvaluan) 5:45am Estimat May >59 [facility], [address] [place] [address] 36 E Glomerular 2018 ml/[place] [address] Filtration Rate 10:41am Estimat May >59 [facility], [address] [place] [address] 36 E Glomerular 2018 ml/[place] [address] Filtration Rate 2:25pm Estimat July >59 [facility], [address] [place] [address] 36 E Glomerular 2018 ml/[place] [address] Filtration Rate 8:30am Estimat July >59 [facility], [address] [place] [address] 36 E Glomerular 2018 ml/[place] [address] Filtration Rate 5:45am Glucose Level May 243 74-106 [facility], [address] [place] [address] 36 E 2018 mg/[place] [address] 10:41am Glucose Level May 211 74-106 [facility], [address] [place] [address] 36 E 2018 mg/[place] [address] 2:25pm Glucose Level July 193 74-106 [facility], [address] [place] [address] 36 E 2018 mg/[place] [address] 8:30am Glucose Level July 241 74-106 [facility], [address] [place] [address] 36 E 2018 mg/[place] [address] 5:45am Bedside Glucose July 218 70-110 [place] 2018 re (RALS) 6:00am Hemoglobin A1c May 9.5 % 0.0-7.0 < 6% [facility], [address] [place] [address] 36 E 2018 [place] [address] 10:41am Level< 7% Controlled Diabetic Level> 8% Poorly Controlled Diabetic Level Lactate May 1.1 0.4-2.0 [facility], [address] [place] [address] 36 E 2018 mmol/[place] [address] 2:25pm Calcium Level May 9.3 8.5-10.1 [facility], [address] [place] [address] 36 E 2018 mg/dL [place] 71082 10:41am Calcium Level May 9.1 8.5-10.1 [facility], [address] [place] [address] 36 E 282018 mg/dL [place] [address] 2:25pm Calcium Level July 9.5 8.5-10.1 [facility], [address] [place] [address] 36 E 2018 mg/dL [place] [address]4498 8:30am Calcium Level July 8.3 8.5-10.1 [facility], [address] [place] [address] 36 E 2018 mg/dL [place] [address]82[address] 5:45am Magnesium Level July 1.5 1.4-2.2 [facility], [address] [place] [address] E 2018 mg/dL [place] 403[address] 5:45am Total Bilirubin May 0.5 0.2-1.0 [facility], [address] [place] [address] 36 E 2018 mg/dL [place] [address] 10:41am Total Bilirubin July 0.7 0.2-1.0 [facility], [address] [place] [address] 36 E 2018 mg/dL [place] 88107 12:48pm Total Bilirubin July 0.6 0.2-1.0 [facility] [facility], [address] [place] [address] 36 E 2018 mg/dL [place] DUGAN 52342 3:00am Direct Bilirubin July 0.1 0.0-0.2 [facility], [address] [place] [address] 36 E 2018 mg/dL [place] DUGAN 37290 12:48pm Direct Bilirubin July 0.2 0.0-0.2 [facility], [address] [place] [address] 36 E 2018 mg/dL [place] DUGAN 92028 3:00am Indirect November 0.6 0.0-0.9 [facility], [address] [place] [address] 36 E Bilirubin 2018 mg/dL [place] DUGAN 79897 12:48pm Indirect November 0.4 0.0-0.9 [facility], [address] [place] [address] 36 E Bilirubin 2018 mg/dL [place] DUGAN 69426 3:00am Aspartate Amino Viri 26 U/L 15-37 [facility], [address] [place] [address] 36 E Transf (AST/SGOT) 2018 Chris DUGAN 00328 10:41am Aspartate Amino July 26 U/L [facility], [address] [place] [address] E Transf (AST/SGOT) 2018 Luis DUGAN 96335 12:48pm Aspartate Amino July 19 U/L [facility], [address] [place] [address] E Transf (AST/SGOT) 2018 Luis DUGAN 60256 3:00am Alanine May 30 U/L [facility], [address] [place] [address] E Aminotransferase 2018 Gabi DUGAN 54680 (ALT/SGPT) 10:41am Alanine July 25 U/L [facility], [address] [place] [address] E Aminotransferase 2018 Chris DUGAN 92492 (ALT/SGPT) 12:48pm Alanine July 29 U/L [facility], [address] [place] [address] E Aminotransferase 2018 Chris DUGAN 39005 (ALT/SGPT) 3:00am C-Reactive November 2.5 0.0-0.9 [facility], [address] [place] [address] E Protein 2018 mg/dL [place] RITCHIE 32865 3:00am B-Type July 165 0- [facility], [address] [place] [address] E Natriuretic 2018 pg/[place] [address] Peptide 12:04pm B-Type July 227 0-100 [facility], [address] [place] [address] E Natriuretic 2018 pg/[place] [address] Peptide 3:00am Total Protein May 7.7 6.4-8.2 [facility], [address] [place] [address] E 2018 gm/[place] [address] 10:41am Total Protein July 6.5 6.4-8.2 [facility], [address] [place] [address] E 2018 gm/[place] [address] 12:48pm Total Protein July 7.2 6.4-8.2 [facility], [address] [place] [address] E 2018 gm/[place] [address] 3:00am Albumin May 3.8 3.4-5.0 [facility], [address] [place] [address] 36 E 2018 gm/dL [place] RITCHIE 25294 10:41am Albumin July 3.1 3.4-5.0 [facility], [address] [place] [address] 36 E 2018 gm/[place] [address] 12:48pm Albumin July 3.3 3.4-5.0 [facility], [address] [place] [address] 36 E 2018 gm/[place] [address] 3:00am Globulin May 3.9 1.3-3.2 [facility], [address] [place] [address] 36 E 2018 gm/[place] [address] 10:41am Albumin/Globulin May 1.0 1.1-1.8 [facility], [address] [place] [address] 36 E Ratio 2018 [place] DUGAN 51177 10:41am Triglycerides May 148 30-200 [facility], [address] [place] [address] 36 E Level 2018 mg/dL [place] DUGAN 79126 10:41am Cholesterol Level May 169 140-200 [facility], [address] [place] [address] 36 E 2018 mg/[place] [address] 10:41am LDL Cholesterol May 105 0-130 [facility], [address] [place] [address] 36 E 2018 mg/[place] [address] 10:41am VLDL Cholesterol May 30 0-40 [facility], [address] [place] [address] 36 E 2018 mg/[place] [address] 10:41am HDL Cholesterol May 34 29-89 [facility], [address] [place] [address] 36 E 2018 mg/[place] [address] 10:41am Cholesterol/HDL May 5.0 1-3.5 [facility], [address] [place] [address] 36 E Ratio 2018 [place] DUAGN 86737 10:41am Alkaline May 138 U/L 46-116 [facility], [address] [place] [address] 36 E Phosphatase 2018 Isabella DUGAN 53490 10:41am Alkaline July 118 U/L 46-116 [facility], [address] [place] [address] 36 E Phosphatase 2018 [place] DUGAN 39020 12:48pm Alkaline July 121 U/L 46-116 [facility] 36 E Phosphatase 2018 Cristalkeenan DUGAN 59013 3:00am Free Thyroxine July 2.6 5.93-13.13 [facility], [address] [place] [address] 36 E Index 2018 ug/dL [place] DUGAN 42412 12:48pm Thyroxine (T4) May 9.1 4.7-13.3 [facility], [address] [place] [address] 36 E 2018 ug/[place] [address] 10:41am Thyroxine (T4) July 7.3 4.7-13.3 [facility], [address] [place] [address] 36 E 2018 ug/dl [place] DUGAN 26285 12:48pm Triiodothyronine July 35 % 31-39 [facility], [address] [place] [address] 36 E (T3) Uptake 2018 Crist[place] DUGAN 01414 12:48pm Thyroid May 2.41 0.358-3.74 Please note the [facility], [address] [place] [address] 36 E Stimulating 2018 uIU/ml 0 potential for Cynt layo DUGAN 53749 Hormone (TSH) 10:41am biotin to falsely depress the TSH result when high levels of biotin surpassing the daily recommended dose are administered. Thyroid July 2.67 0.358-3.74 Please note the [facility], [address] [place] [address] 36 E Stimulating 2018 uIU/ml 0 [place] [address] Hormone (TSH) 12:48pm biotin to falsely depress the TSH result when high levels of biotin surpassing the daily recommended dose are administered. 25-Hydroxy May 18.4 Vitamin D [facility] Vitamin D Total 2018 ng/mL deficiency has Acct# 10:41am been defined by [id number] the [place] [employer] and an Endocrine Society practice guideline as alevel of serum 25-OH vitamin D less than 20 ng/mL (1,2).The Endocrine Society went on to further define vitamin Dinsufficiency as a level between 21 and 29 ng/mL (2).1. IOM ([place] [employer]). 2010. Dietary reference intakes for calcium and D. Valadez [place]: The National Academies Press.2. Murphy ALVAREZ, Deepti NC, Remington sousa FERRARI, et al. Evaluation, treatment, and prevention of vitamin D deficiency: an Endocrine Society clinical practice guideline. JCEM. 2010; 96(7):1911-30.P erformed at: CB - [facility] [id number] [place], [place] [id number] Director: Eric Arriaza PhD, Phone: [phone] Urine May <3.0 Not Estab. Performed at: [facility] Microalbumin 2018 ug/mL [facility] Acct # 10:41am [id number] [place], [place] [id number] Director: Eric Arriaza PhD, Phone: [phone] Rejected Laboratory Tests Ordered Test Collection Cancelled Reject Reason Specimen Date/Time Date/Time Condition Complete Blood June 04June 04, Anitcoagulated Clotted Count Auto Diff 2018 10:41am 2018 3:27pm specimen contains clots. Microbiology Results Procedure Source Result Collection Result Result Performin g Date/Time Date/Time Comment Site Blood Culture Blood NO GROWTH MayJuly 02, [facility], [address] [place] [address] AFTER 5 2018 2:37pm [place] [address] DAYS 2:25pm Diagnostic Imaging Reports Report Dictated Date/Time Dictated By Status Radiology Report June 10, 2019 Loc Duran MD completed 2:52pm [facility] [address] [place] [address] [place] [address] XRay R eport Sig carmina Patient: Barbara Cabrera MR#: [id number] [birth year] : 1960 Acct:[id number] Age/Sex: 59 / F ADM Date: 9 Loc: LAB Attending Dr: Staci Riggins APRN Ordering Physician: Staci Riggins APRN Date of Service: 06/10/19 Procedure(s): XR chest 2V Accession Number(s): [id number] cc: Loc Duran MD; Rudolph Conrad MD~ PROCEDURE: XR CHEST 2V CLINICAL HISTORY: cough Cough and congestion, former smoker COMPARISON: No exams were available fo r comparison FINDINGS: Borderline cardiomegaly without failure . Biventricular and right atrial pacer wires are present. Slight increased markings are present in the right perihilar region s uggestive of patchy infiltrate. There is mild kyphosis wit h mild wedging T9 and T8 and T7 which may be chronic. IMPRESSION: Patchy right perihilar infiltrate with mild cardiomegaly Dictated by: Loc Duran MD 06/10/2019 16:24 Electronically signed by Loc Duran in [place] 06/10/2019 16:24 Radiology Report June 10, 2019 Loc Duran MD completed 2:53pm [place] [id number] 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 Coarse intramedullary calcification is noted i nvolving the distal shaft of the femur with a typical appearance of a bone infarction. No fracture or dislocation. Minimal osteo arthritic changes are present at the knee. IMPRESSION: Coarse intramedullary calcification of the distal shaft of the femur consistent with bone infarction Dictated by: Loc Duran MD 06/10/2019 16:26 Electronically signed by Loc Duran in [place] 06/10/2019 16:26 Radiology Report June 19, 2019 Jeffrey Wheatley completed 10:45am [place] [id number] [facility] [address] [address] XRay R eport Sig carmina Patient: Barbara Cabrera MR#: [id number] [birth year] : 1960 Acct:[id number] Age/Sex: 59 / F ADM Date: 9 Loc: RAD Attending Dr: Daniella Aburto MD Ordering Physician: Daniella Aburto MD Date of Service: 06/19/19 Procedure(s): XR knee LT 4V Accession Number(s): [id number] cc: Jeffrey Wheatley ; Staci Riggins PRN~ PROCEDURE: XR KNEE LT 4V CLINICAL INDICATION: Femur Pain COMPARISON: XR FEMUR LT 2V from 2018 FINDINGS: No fracture or dislocation. No lytic or blastic change. There is normal mineralization. There is mild joint space narrowing med ially and there is spurring of the tibial spines. There is mild narro wing of the patellofemoral space. There is no effusion. Again no ella is the course somewhat diffuse intramedullary calcifications o f the distal femur consistent with a bone infarct stable and unchange d from the previous exam. IMPRESSION: Mild degenerate changes, stable bone in farct distal femur Dictated by: Dr. Michael Wheatley MD 2018 10:[address] Peggy Wheatley MD in [place] 06/19/2019 10:53 Radiology Report June 27, 2019 Loc Duran MD completed 2:55pm [facility] [address] [place] [facility] [address] [address] XRay R eport Sig carmina Patient: Barbara Cabrera MR#: [id number] [birth year] : 1960 Acct:[id number] Age/Sex: 59 / F ADM Date: 9 Loc: ER Attending Dr: Ordering Physician: Rudolph Springer MD Date of Service: 06/27/19 Procedure(s): XR chest 2V Accession Number(s): [id number] cc: Loc Duran MD; Staci Riggins MANAGER OF MANUFACTURING~ PROCEDURE: XR CHEST 2V CLINICAL HISTORY: PRODUCTIVE COUGH, CP COMPARISON: XR CHEST 2V from 9 FINDINGS: Biventricular and right atrial pacemake r is present. Normal heart size. The lungs are clear without infiltrates , suspicious nodules, or pleural effusions. No acute bony abnormalities. IMPRESSION: No acute findings. Dictated by: Loc Duran MD 06/27/2019 15:32 Electronically signed by Loc Duran in [place] 06/27/2019 15:32 Radiology Report July 21, 2019 Loc Duran MD completed 11:17am [facility] [address] [facility] [address] [address] Nuclear Medi cine Report Sig carmina Patient: Barbara Cabrera MR#: [id number] 30 : 1960 Acct:[id number] Age/Sex: 59 / F ADM Date: 9 Loc: RAD Attending Dr: Demarco Kate MD Ordering Physician: Demarco Kate MD Date of Service: 07/21/19 Procedure(s): NM clark perf SPECT rest & s tr Accession Number(s): [id number] cc: Loc Duran MD; Staci Riggins APRN~ APPROVED REPORT -------- ------ Exam: Nuclear Stress Test Indication: SOB, HTN, DM, Family histor y, Pacemaker Patient Location: Outpatient Stress Tech: Ronna Truong NM Tech:Iva Gonzalez, ARRT, RT (R)( N) Ht: 5 ft 6 in Wt: 250 lbs Bra Size: 46D HR: 63 bpm BP: 161/67 mmHg BSA: 2.20 m2 BMI: 40.3 History: SOB, HTN, DM, Family history, Pacemaker Procedure: Patient received a 0.4 mg of intravenou s Lexiscan, resting heart rate 63 bpm, resting blood pressure 161/67 m mHg, with Lexiscan maximum heart rate achived was 74 bpm which is % of the maximum predicted heart rate and blood pressure was 176/8 4 mmHg. Cardiac Stress and Resting SPECT Images : Cardiac Stress and Resting SPECT images were obtained using technetium 99m Myoview 31.2 mCi stress and 9.91 mCi at rest. The ejection fraction is low at 33% wit h global hypokinesia There is a fixed defect within the apic al septal region. Tgere is a small reversible defect in t he lateral wall. Conclusion: The ejection fraction is low at 33% wit h global hypokinesia There is a fixed defect within the apic al septal region consistent with an area of infarction. There is a small reversible defect in t he lateral wall consistent with a small area of ischemia Electronically signed by : Loc Duran MD 07/22/2019 09:53:54 Interventional Radiology August 03, 2019 luis Hartman ompleted Report 9:14am [address] [place] [address] Interventional Radiology Rpt Sig carmnia Patient: Barbara Cabrera MR#: [id number] [birth year] : 1960 Acct:[id number] Age/Sex: 59 / F ADM Date: 9 Loc: CATHLAB Attending Dr: Joseph Hernandez MD Ordering Physician: Joseph Hernandez MD Date of Service: 08/03/19 Procedure(s): CL lhc w ventricle Accession Number(s): [id number] cc: Staci Riggins APRN; Anh Hernandez MD~ APPROVED REPORT -------- ------ Patient Location: Outpatient [place] Integration Architect: EVETTE Kay RT (R) PROCEDURES Left heart catheterization Left ventric ulogram Selective coronary angiogram INDICATION High risk abnormal stress test, Systoli c congestive heart failure ejection fraction 33% Informed consent was obtained prior to the procedure. COMPLICATIONS None Estimated Blood Loss: less than 10 ml TECHNIQUE 1% lidocaine used to anesthetize the [facility] groin the right femoral artery was accessed via the [place] te chnique and a 4 Korean sheath was placed in the right femoral artery a JL4 JR4 catheter were used to perform left heart catheterization l eft ventriculogram and selective coronary angiogram. At the e nd of the procedure the patient was transferred to the postop [facility] area in stable condition for sheath removal ANGIOGRAPHIC RESULTS The left main artery Normal The left anterior descending artery Nor mal The circumflex artery Normal The right coronary artery Dominant norm al The CHENG ventriculogram reveals Reduced ejection fraction 30 to 35% The left ventricular end-diastolic pres sure Less than 10 mmHg IMPRESSION Normal coronary arteries Reduced ejection fraction Normal left ventricular end-diastolic p ressure PLAN 1. Medical management Electronically signed by : Joseph corley, 08/03/2019 11:03:46 Fluoroscopy August 06, 2019 Loc Duran MD completed 9:45am [address] [address] Fluorosco py Report Sig carmina Patient: Barbara Cabrera MR#: [id number] [birth year] : 1960 Acct:[id number] Age/Sex: 59 / F ADM Date: 9 Loc: RT Attending Dr: Patel CAMACHO Ordering Physician: Patel Mohamud Date of Service: 08/06/19 Procedure(s): FL barium swallow Accession Number(s): [id number] cc: Loc Duran MD; Staci Riggins APRN~ PROCEDURE: FL BARIUM SWALLOW CLINICAL INDICATION: difficulty swallo wing Choking on food COMPARISON: No exams were available fo r comparison TECHNIQUE: In the upright position the patient was observed to swallow barium in both the AP and later al view. The cervical esophagus was examined under fluoroscop y with images obtained. The patient was then placed prone in th e right anterior oblique position and was observed to swallow ba rium with Valsalva technique . FLUOROSCOPY TIME: 54 seconds FINDINGS: There was no evidence of aspiration. Th ere was normal peristalsis. No filling defects or mucosal abnormalitie s. No masses or strictures. There is a small sliding hiatal hernia. No constricting Schatzki's ring. IMPRESSION: Small sliding hiatal hernia otherwise n egative barium swallow Dictated by: Loc Duran MD 08/06/2019 15:44 Electronically signed by Loc Duran in [place] 08/06/2019 15:44 Radiology Report August 06, 2019 Loc Duran MD completed 8:43am [place] [id number] [facility] [address] [address] Ultrasoun d Report Sig carmina Patient: Barbara Cabrera MR#: [id number] 30 : 1960 Acct:[id number] Age/Sex: 59 / F ADM Date: 9 Loc: RT Attending Dr: Patel CAMACHO Ordering Physician: Patel Mohamud Date of Service: 08/06/19 Procedure(s): US Arterial Lower Ext Rest Accession Number(s): [id number] cc: Loc Duran MD; Staci Riggins APRN~ APPROVED REPORT -------- ------ Exam Type: Lower Extremity Segmental Pr essures Sales Producer: Sheri Parada RD CS Indications Claudication: Rest Pain: Risk Factors Hypertension Hyperlipidemia Obesity Cardiac Disease DiabetesDiabetes, History of Smoking Pressures/Indices Right Indices Left Indices Brachial 160.00 mmHg Brachia l 153.00 mmHg Low Thigh 174.00 mmHg 1.09 Lo w Thigh 163.00 mmHg 1.02 Calf 157.00 mmHg 0.98 Calf 142.00 mmHg 0.89 Ankle(PT) 179.00 mmHg 1.12 An kle(PT) 161.00 mmHg 1.01 Ankle(DP) 177.00 mmHg 1.11 An kle(DP) 165.00 mmHg 1.03 Digit 100.00 mmHg 0.63 Dig it 123.00 mmHg 0.77 Findings R HORACE 1.1 L HORACE 1.0 R TBI .6 L TBI .8 NORMAL PULSES AND WAVEFORMS Conclusion No evidence significant arterial diseas e throughout the right and left lower extremities as evidenced by normal resting PVR waveforms and normal resting indices. Electronically signed by : Loc Duran MD 08/06/2019 18:28:27 Radiology Report August 14, 2019 Loc Duran MD completed 12:44pm [facility] [address] [facility] [address] [address] XRay R eport Sig carmina Patient: Barbara Cabrera MR#: [id number] 30 : 1960 Acct:[id number] Age/Sex: 59 / F ADM Date: 9 Loc: RAD Attending Dr: Lucina TURNERN Ordering Physician: Jana Montalvo APRN Date of Service: 08/14/19 Procedure(s): XR chest 2V Accession Number(s): [id number] cc: Loc Duran MD; Staci Riggins APRN~ PROCEDURE: XR CHEST 2V CLINICAL HISTORY: atrial fib Shortness of breath, atrial fibrillatio n COMPARISON: XR CHEST 2V from 9 XR CHEST 2V from 06/27/2019 FINDINGS: Biventricular pacemaker is present from left subclavian approach with a right atrial lead also noted . Normal heart size. No evidence of C HF. Lungs are clear bilaterally. There are mild degenerative changes in the thoracic spine with mild kyphosis IMPRESSION: As above, no acute finding Dictated by: Loc Duran MD 08/14/2019 17:19 Electronically signed by Loc Duran in [place] 08/14/2019 17:19 Radiology Report August 20, 2019 Loc Duran MD completed 3:23am [facility] [address] [address] XRay R eport Sig carmina Patient: Barbara Cabrera MR#: [id number] 30 : 1960 Acct:[id number] Age/Sex: 59 / F ADM Date: 9 Loc: ER Attending Dr: Ordering Physician: Rudolph Conrad MD Date of Service: 08/20/19 Procedure(s): XR chest 2V Accession Number(s): [id number] cc: Loc Duran MD; Staci Riggins APRN~ PROCEDURE: XR CHEST 2V CLINICAL HISTORY: SOB Shortness of breath COMPARISON: No exams were available fo r comparison FINDINGS: There is cardiomegaly with pulmonary ve nous congestion and mild interstitial edema consistent with CHF. Biventricular and right atrial pacemaker is present from left s ubclavian approach. No lobar consolidation or collapse No acute bony abnormalities. IMPRESSION: Congestive heart failure with interstit ial edema Dictated by: Loc Duran MD 08/20/2019 04:14 Electronically signed by Loc Duran in [place] 08/20/2019 04:14 Health Concerns Concerns chf Advance Directives Advance Directive Response Recorded Date/Time Does the patient have an No June 10, 2019 1:28pm advanced directive on file? Living Will No June 10, 2019 1:28pm Does the patient have an No June 04, 2019 3:03pm advanced directive on file? Living Will No June 04, 2019 3:03pm Chief Complaint and Reason for Visit Chief Complaint New Patient LAB WORK 1 week follow up/Sick cxr, lt femur LT femur pain lt knee, eval for chf dl wheezing, congestion, pnemon ia dyspnea r06.00,r06.02 cws LAB WORK test f/u angina cath dysphagia, claudication i70. 213, cws cath f/u CXR Acute CHF Reason for Visit A-fib Congestive heart failure Diabetes mellitus Obesity Biventricular cardiac pacema ker in situ Encounters Encounter Location(s) Arrival/Admit Date Discharge/Depart Date Provider(s) Departed [facility] Physician June 04, June 04, 2019 Usha Mustafa Physician/Provi Group-Primary 2019 9:14am 11:28am , MANAGER OF MANUFACTURING [facility] Visit Registered [facility] Physician June 04, Staci bishop Clinical Group-Lab Drop 2018 2:19pm , MANAGER OF MANUFACTURING Off to [facility] Departed [facility] Physician June 10, June 10, 2019 Jagruti Riggins Physician/Provi Group-Primary 2018 12:50pm 1:35pm , MANAGER OF MANUFACTURING [facility] Visit Registered [facility] Physician June 10, Staci cruz Clinical Group-Laboratory 2018 2:18pm , MANAGER OF MANUFACTURING Departed [facility] Physician June 19, June 19, 2019 Les jaqui Physician/Provi Group-Surgical 2018 9:44am 11:43am MD Criselda jarrell Office Suite Visit Registered [facility] Physician June 19, Daniella Clinical Group-Radiology 2018 10:17am MD Criselda Departed [facility] Physician June 25, June 25, 2019 Demarco Kate Physician/Provi Group-Cardiology 2018 10:48am 12:02pm MD jarrell Office -[place] Visit Registered [facility] Physician June 25, Joseph Inpatient Group-Cardiology 2018 11:59pm MD Philomena Hernandez Departed [facility] Physician June 27, June 27, 2019 nul l Emergency Group-Emergency 2018 2:01pm 5:26pm Room Registered [facility] Physician July 21, 2019 Demarco daigle Clinical Group-Radiology 8:08am MD Registered [facility] Physician July 31, 2019 Demarco daigle Clinical Group-Laboratory 12:04pm MD Departed [facility] Physician July 31, 2019 July 31, 2019 Eleni Mohamud Physician/Provi Group-Cardiology 12:12pm 1:08pm DOUG jarrell Office -[place] Visit Departed [facility] Physician August 03, 2019 August 03, 2019 Mychal tthew Surgical Day Group-CathLab 8:04am 2:13pm MD David Care Registered [facility] Physician August 03, 2019 Joseph Inpatient Group-Cardiology 11:59pm MD Philomena Hernandez Registered [facility] Physician August 06, 2019 Patel palafox , Clinical Group-Respirator 8:20am PA y Therapy Departed [facility] Physician August 14, August 14, 2019 Demarco collins Physician/Provi Group-Cardiology 2018 10:14am 11:16am MD jarrell Office -[place] Visit Registered [facility] Physician August 14, Lucina Clinical Group-Radiology 2018 12:29pm Rashad-Zak madrid , MANAGER OF MANUFACTURING Discharged [facility] Physician August 20, August 21, 2019 Thierno negrete S Inpatient Group-Second 2018 1:43pm 1:51pm MD [place] Floor Registered [facility] Physician August 21, Rudolph Beck Inpatient Group- 2018 2:45pm MD [place] Recent Diagnosis Onset Date A-fib Congestive heart failure Diabetes mellitus Obesity Biventricular cardiac pacemaker in situ Assessments See care plan goals Functional Status Observation Response Date Recorded Oral Care Ability Independent August 20, 2019 4:55am Bathing Ability Standby Assistance August 20, 2019 6:26am Eating (Feeding) Ability Independent August 20, 2019 4:55am Toileting Ability Independent August 20, 2019 4:55am Ambulation Ability Independent August 21, 2019 1:47pm Ambulation Ability Independent August 03, 2019 1 :41pm Functional status ambulatory July 31, 2019 1 :27pm Functional status ambulatory June 10, 2019 1:28pm Functional status ambulatory August 14, 2019 2:41pm Functional status ambulatory June 25, 2019 3:05pm Functional status ambulatory June 20, 2019 2:27pm Functional status ambulatory June 04, 2019 3:03pm Goals Acute Goals Nursing Diagnosis: Knowledge Deficit D isease/Condition Goal(s): Education of di sease process Instruction(s): Follow provider p gerard/instructions (See attached discharge education) Follow/up with primary care provider as instructed in discharge packet Ambulatory Goals Patient verbalizes understanding of dise ase process/healthy behaviors. Patient to follow plan of care. Education provid ed. Mental Status Observation Response Date Recorded Comprehension Ability No Impairment August 21 9 1:00pm Able to Read Yes August 20, 2019 4:55am Able to Write Yes August 20, 2019 4:55am Ability to Follow Directions Excellent August 202018 4:55am Eye Contact Maintains Eye Contact August 20 4:55am Oral Expression Ability No Impairment August 20 019 4:55am Medical Equipment Implanted Devices Device Date Implanted SHAWN Number Cardiac Pacemaker July 30, 2018 Insurance Providers Guarantor Barbara Post Address [address] [address] Contact Info. Home Phone: Payer Policy Id Coverage Id Subscriber's Subscriber Effective Expi ration Name Id Date Date [employer] [id number] Barbara Post [id number] [facility] Medicare [id number] Barbara Post [id number] Self Pay Self N/A Plan of Treatment Follow up as ordered by primary care provider ordered chest x ray, neb, cough med, antibiotics watch sugar close x ray left femur referral to [facility] for tumor if worsen or no improvement return discussed labs with pt will start vit d and pt wants to hold on dm med changes due to not taking meds correctly. 59yo F with L knee DJD + benign lesion of L distal femur; XR appearance consistent with bone infarct vs enchondroma. Office note obtained by physician at [facility] that evaluated the patient earlier this year with CT scan documented this as an enchondroma. Both are benign lesions that do not require operative treatment and are generally asymptomatic, found incidentally on XR. I believe the patient's pain is from her knee arthritis. I discussed the natural history of degenerative joint disease of the knee with the patient as well as all treatment options, both operative and non-operative. I provided them with a handout of my non-operative knee arthritis protocol and discussed the following as a means of improving their pain and quality of life: weight loss, activity modification, oral analgesics/NSAIDs, ice, bracing, intraarticular corticosteroid injections, viscosupplementation, physical therapy, and glucosamine-chondroitin supplements. After discussion, we decided to proceed with the following treatment: -- continue NSAIDs, icing, activity modification; brace as needed -- I strongly encouraged the patient to optimize her medical conditions and lose weight; weight loss may decrease her knee pain, but also if a knee replacement is considered in the future, it will decrease her risk of adverse event perioperatively -- intra-articular steroid injection was offered to the patient today, but after her recent IM prednisone injection for her lungs, her glucose has been persistently over 300. She would like to think about the knee injection and return at a later date if/when her glucose returns to baseline. -- will give prescription for compression stockings -- recommend physical therapy for improvement in strength, balance, flexibility and to encourage a consistent exercise regimen -- f/u 6 months for repeat XR, or sooner/PRN if pain increases and/or patient would like an injection Disclaimer: Portions of this office visit were transcribed with voice recognition software. Notes are proofread for errors, but minor grammatical or spelling errors may persist. labs antibiotics return in 2 weeks to discuss labs' pt does not want to cahnge dm meds at this time because her level will be high because she has not been taking them. mammagram refer to david Future Tests Future scheduled test information is unavailable Pending Tests Pending diagnostic test information is unavailable Future Visits Future appointment information is unavailable Referrals to Other Providers Reason for Referral Start Provider Provider Contact Provider Address Referral Date Information [facility] June 04, Patel Mohamud 2019 [address] Work Phone: [phone] [phone] Future Procedures Future procedure information is unavailable Future Medications Future medication information is unavailable Patient Instructions Overweight in Adults Heart Failure Essential Hypertension Chronic Obstructive Pulmonary Disease Acute Respiratory Distress Syndrome DI for Acute Bronchitis How to Count Respirations Respiratory Failure Osteoarthritis Pneumonia-Adult Chronic Obstructive Pulmonary Disease Atrial Fibrillation How to Count Respirations Respiratory Failure DI for Chronic Obstructive Pulmonary Dis ease High Triglycerides Heart-Healthy Diet Fat-Restricted Diet Effectiveness of Diets for Weight Loss DI for Oropharyngeal Dysphagia High Triglycerides Chronic Obstructive Pulmonary Disease Heart Failure Atrial Fibrillation Heart-Healthy Diet Balanced Diet Fat-Restricted Diet Effectiveness of Diets for Weight Loss DI for Shortness of Breath How to Count Respirations Respiratory Failure Heart Failure Atrial Fibrillation Pneumococcal Vaccine DI for Heart Failure DI for Chronic Obstructive Pulmonary Dis ease DI for Atrial Fibrillation Social History Observation Status Date of Observation Not August 20, 2019 Assigned Sex Female Vital Signs Vital Reading Result Reference Range Collection Date/ Time Height 175.26 cm June 04 10:22am Weight 120.65 kg June 04 10:22am Body Temperature 97.5 [degF] 97.6-99.6 June 04, 2019 10:22am Heart Rate 60 /min 60-90 June 04 10:22am Respiratory rate 16 /min 12-24 June 04, 2019 10:22am Oxygen saturation by 94 % 95-100 June 042018 Pulse oximetry 10:22am BP Systolic 150 mm[Hg] 110-140 June 04 019 10:22am BP Diastolic 80 mm[Hg] 60-90 June 04 019 10:22am BMI (Body Mass Index) 39.2 kg/m2 June 04, 2019 10:22am Height 175.26 cm June 10, 2019 12:57pm Weight 126.55 kg June 10, 2019 12:57pm Body Temperature 98 [degF] 97.6-99.6 June 10, 2019 12:57pm Heart Rate 72 /min -June 10, 2019 12:57pm Respiratory rate 19 /min -June 10, 2019 12:57pm Oxygen saturation by 97 % 95-100 May 312018 Pulse oximetry 12:57pm BP Systolic 144 mm[Hg] 110-140 June 10, 2019 12:57pm BP Diastolic 80 mm[Hg] 60-90 June 10, 2019 12:57pm BMI (Body Mass Index) 41.2 kg/m2 June 10, 2019 12:57pm Height 175.26 cm June 19, 2019 9:53am Weight 113.39 kg June 19, 2019 9:53am BP Systolic 176 mm[Hg] 110-140 June 19, 2019 9:54am BP Diastolic 84 mm[Hg] 60-90 June 19, 2019 9:54am BMI (Body Mass Index) 36.9 kg/m2 June 19, 2019 9:53am Height 167.64 cm June 25, 2019 11:01am Weight 118.38 kg June 25, 2019 11:01am Heart Rate 61 /min 60-90 June 25, 2019 11:01am Oxygen saturation by 96 % 95-100 June [id number] Pulse oximetry 11:01am BP Systolic 161 mm[Hg] 110-140 June 25, 2019 11:01am BP Diastolic 92 mm[Hg] 60-90 June 25, 2019 11:01am BMI (Body Mass Index) 42.1 kg/m2 June 25, 2019 11:01am Height 167.64 cm June 27, 2019 2:15pm Weight 113.39 kg June 27, 2019 2:15pm Body Temperature 98.3 [degF] 97.6-99.6 June 27, 2019 5:24pm Heart Rate 62 /min 60-90 June 27, 2019 5:24pm Respiratory rate 18 /min -24 June 27, 2019 5:24pm Oxygen saturation by 99 % 95-100 June [id number] Pulse oximetry 2:51pm BP Systolic 142 mm[Hg] 110-140 June 27, 2019 5:24pm BP Diastolic 84 mm[Hg] 60-90 June 27, 2019 5:24pm BMI (Body Mass Index) 40.3 kg/m2 June 27, 2019 2:15pm Height 167.64 cm July 31 12:19pm Weight 117.02 kg July 31 12:19pm Heart Rate 63 /min -July 31 12:19pm Oxygen saturation by 94 % 95-100 July Pulse oximetry 12:19pm BP Systolic 135 mm[Hg] 110-140 July 31 12:19pm BP Diastolic 65 mm[Hg] 60-90 July 31 12:19pm BMI (Body Mass Index) 41.6 kg/m2 July 312018 12:19pm Height 167.64 cm August 03, 8:10am Weight 117.02 kg August 03, 8:10am Body Temperature 97.5 [degF] 97.6-99.6 August 03, 2 019 8:48am Heart Rate 74 /min August 03 1:40pm Respiratory rate 20 /min 09-22August 03, 2 019 1:40pm Oxygen saturation by 96 % 95-100 July Pulse oximetry 1:40pm BP Systolic 127 mm[Hg] 110-140 August 03 1:40pm BP Diastolic 99 mm[Hg] 60-90 August 03, 1:40pm BMI (Body Mass Index) 41.6 kg/m2 August 032018 8:10am Height 167.64 cm August 14, 2 019 10:54am Weight 117.48 kg August 14, 2 019 10:54am Heart Rate 95 /min -August 14, 2 019 10:54am Oxygen saturation by 96 % 95-100 August 142018 Pulse oximetry 10:54am BP Systolic 95 mm[Hg] 110-140 August 14, 2 019 10:54am BP Diastolic 53 mm[Hg] 60-90 August 14, 2 019 10:54am BMI (Body Mass Index) 41.8 kg/m2 July 312018 10:54am Height 167.64 cm August 21, 019 5:32am Weight 119.49 kg August 21 019 5:32am Body Temperature 98.1 [degF] 97.6-99.6 August 21, 2019 12:00pm Heart Rate 75 /min 60-90 August 21 12:00pm Respiratory rate 21 /min -August 21, 2019 12:00pm Oxygen saturation by 95 % 95-100 August 212018 Pulse oximetry 12:00pm BP Systolic 153 mm[Hg] 110-140 August 21 12:00pm BP Diastolic 112 mm[Hg] 60-90 August 21 019 12:00pm BMI (Body Mass Index) 42.5 kg/m2 August 012018 5:32am Hospital Discharge Instructions Ambulatory OrdersCardiology Referral Location: None Selected
== END 2019-08-21 13:51 | disposition home or self-care (01) | DRG 309 ==
LOC: 2ND 02:48 → ER 02:48 → 2ND 05:29
PROVIDERS: ADMIT Emergency Medicine; ATTEND Emergency Medicine
DX: Z68.41 Body mass index [BMI] 40.0-44.9, adult; I50.9 Heart failure, unspecified; Z87.891 Personal history of nicotine dependence; Z95.0 Presence of cardiac pacemaker; Z79.84 Long term (current) use of oral hypoglycemic drugs; Z79.899 Other long term (current) drug therapy; Z79.51 Long term (current) use of inhaled steroids; I11.0 Hypertensive heart disease with heart failure; E11.9 Type 2 diabetes mellitus without complications; E66.01 Morbid (severe) obesity due to excess calories; I48.0 Paroxysmal atrial fibrillation; I42.9 Cardiomyopathy, unspecified; J44.9 Chronic obstructive pulmonary disease, unspecified

== ENCOUNTER → 2019-09-17 12:10 | Outpatient (CLI) | payer MEDICARE, OTHER, SELFPAY ==
[2019-09-17 14:29] LABS: Blood Urea Nitrogen 10 mg/dL (7-18); Calcium 8.7 mg/dL (8.5-10.1); Carbon Dioxide 28 mmol/L (21.0-32.0); Chloride 104 mmol/L (98-107); Creatinine,Serum 0.82 mg/dL (0.55-1.02); Estimated Glomerular Filt Rate 71 ml/min (>60); GFR (African American) 86 ML/MIN (>60); Glucose 125 mg/dL (74-106); Sodium 140 mmol/L (136-145)
== END ==
PROVIDERS: Visit Provider Internal Medicine Cardiovascular Disease
DX: E11.9 Type 2 diabetes mellitus without complications (principal); I42.9 Cardiomyopathy, unspecified; I48.0 Paroxysmal atrial fibrillation; I50.9 Heart failure, unspecified; J44.9 Chronic obstructive pulmonary disease, unspecified; R06.00 Dyspnea, unspecified; R94.31 Abnormal electrocardiogram [ECG] [EKG]; Z95.0 Presence of cardiac pacemaker; Z79.84 Long term (current) use of oral hypoglycemic drugs
CPT/HCPCS: 36415; 80048

== ENCOUNTER 2019-12-01 18:30 | Observation (INO) ==
[2019-12-01 18:45] LABS: Basophils # 0.1 K/mm3 (0-0.2); Basophils % 0.5 % (0.1-2.0); Eosinophils # 0.4 K/mm3 (0.0-0.4); Hematocrit 39.2 % (37.0-47.0); Hemoglobin 12.6 g/dL (12.2-16.2); Lymphocytes # 2.3 K/mm3 (0.7-4.5); Lymphocytes % 21.6 % (10-50); Mean Corpuscular HGB Conc 32.1 g/dL (31.8-35.4); Mean Corpuscular Volume 92.9 fl (81-99); Mean Platelet Volume 9.2 fl (7.4-10.4); Monocytes # 0.6 K/mm3 (0.1-1.0); Neutrophils # 7.1 K/mm3 (1.8-7.8); Neutrophils % 67.8 % (37.0-80.0); Platelet Count 269 K/mm3 (142-424); Red Blood Count 4.22 M/mm3 (4.20-5.40); White Blood Count 10.4 K/mm3 (4.8-10.8)
[2019-12-01 18:50] LABS: Microscopic, Urine URINE MICROSCOPIC (MICROSCOPIC)
[2019-12-01 18:51] LABS: Anion Gap 10.8 mEq/L (5-15); Calcium 9.2 mg/dl (8.4-10.2)
--- NOTE | 2019-12-01 18:54 | Emergency Department Note ---
ED Disposition Clinical Impression: Witnessed seizure-like activity Chest pain Qualifiers: Chest pain type: unspecified Qualified Code(s): R07.9 - Chest pain, unspecified Disposition: Admitted as Observation Condition on Discharge: Good Referrals: Staci Riggins APRN [Primary Care Provider] - - Critical Care Critical Care Time: No Attestation: On , the high probability of a clinically significant, sudden or life threaten ing deterioration of the following system(s) required my full and direct attention, intervention and personal management. The time I documented below is in addition to time spent performing reported procedures but includes the following listed in this critical care notation. Medical Decision Making - Feliberto Inquiry Pt receiving controlled substance: No Vital Signs: 12/01/19 18:38 Temperature 97.9 F Temperature Source Oral Pulse Rate [Right Brachial] 60 Respiratory Rate 18 Blood Pressure [Right Arm] 159/100 H Blood Pressure Mean [Right Arm] 119 Blood Pressure Source [Right Arm] Automatic Cuff Blood Pressure Position [Right Arm] Supine 02 Sat by Pulse Oximetry 94 L Oxygen Delivery Method Room Air - Lab Data Lab Results 12/01/19 18:30: WBC 10.4, RBC 4.22, Hgb 12.6, Hct 39.2, MCV 92.9, MCH 29.8, MCHC 32.1, RDW 13.0, Plt Count 269, MPV 9.2, Neut % (Auto) 67.8, Lymph % (Auto) 21.6, Bandera % (Auto) 6.0, Eos % (Auto) 4.0, Baso % (Auto) 0.5, Neut # (Auto) 7.1, Lymph # (Auto) 2.3, Bandera # (Auto) 0.6, Eos # (Auto) 0.4, Baso # (Auto) 0.1 12/01/19 18:30: Sodium 139, Potassium 3.8, Chloride 101, Carbon Dioxide 31 H, Anion Gap 10.8, BUN 8, Creatinine 0.50 L, Estimated Creat Clear 214, Estimated GFR 126, Est GFR ( Amer) 152, Glucose 203 H, Calcium 9.2, Troponin I 0.02 12/01/19 18:45: Urine Color Yellow, Urine Appearance Clear, Urine pH 7.0, Ur Specific Dauphin 1.020, Urine Protein Negative, Urine Glucose (UA) Negative, Urine Ketones Negative, Urine Blood Negative, Urine Nitrate Negative, Urine Tushar irubin Negative, Urine Urobilinogen 1.0, Ur Leukocyte Esterase Negative, Urine WBC Occasional, Ur Squamous Epith Cells 5-10, Urine Bacteria Trace 12/01/19 18:45: Urine Opiates Screen Negative, Urine Methadone Screen Negative, Ur Barbituates Screen Negative, Ur Phencyclidine Scrn Negative, Ur Amphetamines Screen Negative, U Benzodiazepines Scrn Negative, Urine Cocaine Screen Negative, U Marijuana (THC) Screen Negative Result diagrams: 12/01/19 18:30 12/01/19 18:30 Orders (Tests/Meds): ORDERS Category Date Time Status CT head/brain wo con Stat Cat Scan 12/01/19 18:33 Taken Troponin I Q3H Lab 12/01/19 21:45 Ordered Troponin I Q3H Lab 12/02/19 00:45 Ordered - CT Data CT Scan: Head Time Received: 19:11 ([facility] fax) ED CT Reviewed: Yes: I have viewed the radiologist's interpretation Findings Narrative: Age-related atrophy and chronic white matter ischemic changes, no evidence of any acute intracranial abnormality. No hemorrhage, mass-effect or midline shift. - ECG Data Tracing #1 EKG interpreted by Stas Pelaez MD: Rhythm: Electronic atrial pacemaker Rate: 60 Ectopy: none Conduction: Right bundle branch block ST Segment Changes: none T Wave Changes: none Q Waves: none No evidence of acute ischemia or injury Prior electrocardiagrams reviewed. No change from prior tracings. - Physician Consults Physician Consulted: Dr. Oglesby Time: 20:09 Reason -: Admission, Pt condition Comment/Response: Agrees to admit the patient to the hospital. We discussed the patient's clinical information, including history, exam, laboratory and radiology results and ED course. Per hospital procedure, I will write temporary bridge inpatient orders on the patient. Specific orders requested by the admitting physician: Neurochecks every 4 hours, telemetry, cardiology consult Additional Consult: David Time: 20:09 Reason -: Cardiology Eval/Care Comment/Response: He will consult and will interrogate pacemaker in the morning General Adult HPI - General Chief complaint: Chest Pain Stated complaint: CP Time Seen by Provider: 12/01/19 18:53 Mode of Arrival: Wheelchair Limitations: No Limitations Description of Symptoms (Recalled from ER Triage Doc. by RN): Chest pain, seizure - History of Present Illness HPI narrative: Patient arrives by private vehicle complaining of a seizure and then chest pains . She says that she was sitting in a fast food restaurant eating when she began feeling odd. She then had what her division human resources manager describes as a "full-blown seizure" described as shaking of all the extremities, eyes rolled back, for about 45 seconds. Eyes never closed, "they look like they were going to pop out". She spit out all of her food, but does not remember that. Patient says she was incontinent of a small amount of urine but not stool. She remembers that she was waking up being told that she had had a seizure. 911 was called. Ambulance wanted to take [facility] but she did not want to go there so she signed herself out of the ambulance and came here by private vehicle. She says on the way here she began having slight twinges of chest pain lasting very briefly. She has recently had a heart cath. She has no history of seizure disorder. She is not a drinker she does not take any drugs. She says she is recently been ill with a hoarse voice, cough, wheezing, shortness of breath on exertion. She does have a history of atrial fibrillation is anticoagulated with Eliquis. She has had have cardioversion in the past. She has a pacemaker. She says that prior to this episode all day she felt like her right eye was trying to close and she had a right frontal headache. When she awakened from the episode she felt like the muscles on the right side of her face were tense or tight. - Related Data Home Medications Medication Instructions Recorded Confirmed albuterol sulfate 90 mcg/actuation 2 puff IH Q6HP PRN 06/04/19 11/23/19 aerosol inhaler azelastine-fluticasone 137 mcg-50 1 spray INTRANASAL BID 06/04/19 11/23/19 mcg/spray nasal spray citalopram 20 mg tablet 20 mg PO DAILY 06/04/19 11/23/19 glipizide 5 mg tablet 5 mg PO DAILY 06/04/19 11/23/19 metformin 1,000 mg tablet,extended 1,000 mg PO HS 06/04/19 11/23/19 release 24hr montelukast 10 mg tablet 10 mg PO HS 06/04/19 11/23/19 aspirin 81 mg tablet,delayed 81 mg PO DAILY 07/31/19 11/23/19 release Apixaban [Eliquis] 5 mg PO BID 08/20/19 11/23/19 Metoprolol Succinate 25 mg PO HS 08/20/19 11/23/19 cholecalciferol (vitamin D3) 1,250 1,250 mcg PO QWEEK cap 10/15/19 11/23/19 mcg (50,000 unit) capsule Amiodarone HCl [Cordarone 200mg 200 mg PO DAILY 10/17/19 11/23/19 tablet] Furosemide [Furosemide 40MG tAB] 40 mg PO DAILY 10/17/19 11/23/19 Buspirone HCl [Buspar 10mg 10 mg PO BID 12/01/19 tablet] Prazosin HCl [Minipress] 1 mg PO QHS 12/01/19 Previous Rx's Medication Instructions Recorded potassium chloride 20 mEq 20 meq PO DAILY #30 tab 08/26/19 tablet,extended release sacubitril 24 mg-valsartan 26 mg 1 tab PO BID #60 tab 08/31/19 tablet Allergies Allergy/AdvReac Type Severity Reaction Status Date / Time morphine Allergy Mild Verified 12/01/19 18:41 tramadol Allergy Mild Nausea Verified 12/01/19 18:[address] [facility] History - Hepatitis A Screen Drug use history?: No High risk sexual behaviors?: No History of sexually transmitted infection?: No Currently employed?: No Childcare worker?: No Do you have indoor plumbing?: Yes Do you have electricity?: Yes Attestation statement:: This patient has been screened for Hepatitis A risk factors. Medical History: Reports:: Arrhythmia, Atrial Fibrillation, Congestive Heart Failure, Chronic Obstructive Pulmonary Disease (COPD), Diabetes Mellitus Type 2, Gastroesophageal Reflux Disease(GERD), Hyperlipidemia, Hypertension, Internal Pacemaker Denies:: Seizures Other Surgeries: Yes: Cardiac Catheterization, Cholecystectomy, Colonoscopy, Pacemaker, Tubal Ligation - Social History Smoking Status: Never smoker Tobacco Type: cigarettes # Packs/Day (cigarettes): 0 #Yrs smoked (if former smoker): 20 Alcohol Intake: never Substance Use Type: denies use Occupational Status: other Household Members: family Family Hx:: Cancer, Coronary Artery Disease, Diabetes, Heart Attack, Hyperlipidemia, Hypertension, Stroke, Alcoholism Comment: Father-CAD,HI@[email or web address] ROS Obtained: Yes All systems reviewed & no additional complaints - Constitutional Constitutional: Denies fever(s) - Cardiovascular Cardiovascular: Reports chest pain - Respiratory Respiratory: Yes cough, Yes dyspnea, Yes wheezing - Gastrointestinal Gastrointestingal: Denies: abdominal pain, vomiting - Neurologic Neurologic: Reports seizure-like activity Physical Exam - General General appearance: alert, in no apparent distress - Head Head exam: atraumatic, normocephalic - Eye Eye exam: Present: normal appearance, PERRL, EOMI - ENT ENT exam: Present: mucous membranes moist - Neck Neck exam: Present: normal inspection, trachea midline - Chest Chest inspection: Present: normal inspection, symmetric chest wall rise - Respiratory Respiratory exam: Present: normal lung sounds bilaterally, respiratory distress - Cardiovascular Cardiovascular exam: Present: regular rate, normal rhythm, normal heart sounds - Abdominal Exam Abdominal exam: Present: soft, normal bowel sounds. Absent: distention, tenderness - Extremities Exam Extremities exam: Present: normal inspection - Neurological Exam Neurological exam: Present: alert, oriented X3, CN II-XII intact. Absent: motor sensory deficit - Psychiatric Psychiatric exam: Present: normal affect, normal mood - Skin Skin exam: Present: warm, dry
[2019-12-01 19:01] LABS: Appearance,Urine CLEAR (Clear); Bilirubin,Urine Negative (Negative); Blood, Urine Negative (Negative); Color,Urine YELLOW (Yellow); Glucose,Urine (UA) Negative (Negative); Ketones,Urine Negative (Negative); Leukocyte Esterase,Urine Negative (Negative); Protein,Urine Negative (Negative)
[2019-12-01 19:12] LABS: Amphetamine/Metha Screen,Urine Negative ng/ml (<1000); Barbiturates Screen,Urine Negative ng/ml (<200)
[2019-12-01 19:13] LABS: Benzodiazepines Screen,Urine Negative ng/ml (<200); Cannabinoid Screen,Urine Negative ng/ml (<50)
[2019-12-01 19:14] LABS: Cocaine Screen,Urine Negative ng/ml (<300)
[2019-12-01 19:15] LABS: Methadone Screen,Urine Negative ng/ml (<300); Opiate Screen,Urine Negative ng/ml (<300)
[2019-12-01 19:16] LABS: Phencyclidine Screen,Urine Negative ng/ml (<25)
[2019-12-01 19:24] LABS: Bacteria,Urine Trace /lpf; WBC,Urine Occasional #/hpf (0-3)
--- NOTE | 2019-12-02 07:26 | Pharmacy Consult Notes ---
[facility] Pharmacy VTE Monitoring - Patient Demographics Admission date: 12/01/19 Report Date: 12/02/19 Time: 07:26 Allergies/Adverse Reactions: Patient Allergies morphine Allergy (Mild, Verified 12/01/19 18:41) tramadol Allergy (Mild, Verified 12/01/19 18:41) Nausea Height: 1.68 m Weight: 123.7 kg Patient Problems: Current Active Problems Witnessed seizure-like activity (Acute) Chest pain (Acute) - VTE Risk Labs: VTE Related Lab Results Hgb 12.6 g/dL (12.2-16.2) 12/01/19 18:30 Hct 39.2 % (37.0-47.0) 12/01/19 18:30 Plt Count 269 K/mm3 (142-424) 12/01/19 18:30 BUN 8 mg/dl (7-17) 12/01/19 18:30 Creatinine 0.50 mg/dl (0.52-1.04) L 12/01/19 18:30 Estimated Creat Clear 214 mL/min (50-200) 12/01/19 18:30 VTE Risk Level: Very Low Risk - Prophylaxis VTE Prophylaxis Ordered?: Yes Types of VTE Prophylaxis: TEDS Knee High Location of Applied Device: Bilateral Lower Extremeties Pharmacologic Type: Other (Eliquis)
--- NOTE | 2019-12-02 08:04 | History & Physical Report ---
*Admission Date: 12/01/19 *History of present illness: 59-year-old female patient sitting up in chair oxygen on at 2 L per nasal cannula. She reports she is had no further headache, chest pain, or vision difficulties. Patient arrives by private vehicle complaining of a seizure and then chest pains. She says that she was sitting in a fast food restaurant eating when she began feeling odd. She then had what her serging machine operator describes as a "full-blown seizure" described as shaking of all the extremities, eyes rolled back, for about 45 seconds. Eyes never closed, "they look like they were going to pop out". She spit out all of her food, but does not remember that. Patient says she was incontinent of a small amount of urine but not stool. She remembers that she was waking up being told that she had had a seizure. 911 was called. Ambulance wanted to take her to [facility] but she did not want to go there so she signed herself out of the ambulance and came here by private vehicle. She says on the way here she began having slight twinges of chest pain lasting very briefly. She has recently had a heart cath. She has no history of seizure disorder. She is not a drinker she does not take any drugs. She says she is recently been ill with a hoarse voice, cough, wheezing, shortness of breath on exertion. She does have a history of atrial fibrillation is anticoagulated with Eliquis. She has had have cardioversion in the past. She has a pacemaker. She says that prior to this episode all day she felt like her right eye was trying to close and she had a right frontal headache. When she awakened from the episode she felt like the muscles on the right side of her face were tense or tight (Per Dr. Pelaez). 12/01/19: Head CT IMPRESSION: No acute intracranial findings Dictated by: Roger, 12/01/19 CXR: IMPRESSION: Mild cardiomegaly with pacemaker present. No acute finding Dictated by: Dr. Duran [facility] History Medical History: Reports:: Arrhythmia, Atrial Fibrillation, Congestive Heart Failure, Chronic Obstructive Pulmonary Disease (COPD), Diabetes Mellitus Type 2, Gastroesophageal Reflux Disease(GERD), Hyperlipidemia, Hypertension, Internal Pacemaker, Myocardial Infarction Denies:: Cancer, Diabetes Mellitus Type 1, MRSA, Seizures *Have you ever received a pneumonia vaccine?: No *Have you received a flu vaccine this season?: Yes Other Medical History: Reports: Sinus Problems Other Surgeries: Yes: Cardiac Catheterization, Cholecystectomy, Colonoscopy, Pacemaker, Sinus Surgery, Tubal Ligation Amputation: No Fractures: No - *Social History Educational Level: Completed [employer] Smoking Status: Former smoker Tobacco Type: cigarettes # Packs/Day (cigarettes): 0 #Yrs smoked (if former smoker): 20 Smoking End Date: Alcohol Intake: never Substance Use Type: denies use *Occupational Status:: disabled Housing: house Household Members: spouse, family *Travel in the last 8 weeks: None Family Hx:: Asthma, Cancer, Diabetes, Heart Attack, Hyperlipidemia, Hypertension, Stroke, Other Review of Systems - Review of Systems Review of systems:: pertinent systems reviewed and negative unless documented below - Constitutional Denies fatigue, Denies night sweats - Eyes Reports blurry vision Comments: R Eye - ENT Reports headache(s), Denies difficulty swallowing, Denies sinus pressure - *Cardiovascular Reports chest pain, Reports chest pain at rest - *Respiratory Reports chest congestion, Reports cough, Reports shortness of breath - *Gastrointestinal Denies abdominal pain - *Musculoskeletal Denies back pain, Denies body aches - Integumentary/Breasts Denies lesions, Denies wounds - *Neurologic Reports headache(s), Reports seizure-like activity - Psychiatric Denies behavioral changes - Endocrine Denies rapid, pounding, or irregular heartbeat - Hematologic/Lymphatic Denies easy bleeding, Denies easy bruising - Allergic/Immunologic Denies lip swelling, Denies throat swelling Meds Home Medications Medication Instructions Recorded Confirmed Type albuterol sulfate 90 mcg/actuation 2 puff IH Q6HP PRN 06/04/19 12/01/19 History aerosol inhaler azelastine-fluticasone 137 mcg-50 1 spray INTRANASAL BID 06/04/19 12/01/19 History mcg/spray nasal spray citalopram 20 mg tablet 20 mg PO DAILY 06/04/19 12/01/19 History glipizide 5 mg tablet 5 mg PO DAILY 06/04/19 12/01/19 History metformin 1,000 mg tablet,extended 1,000 mg PO DAILY 06/04/19 12/01/19 History release 24hr aspirin 81 mg tablet,delayed 81 mg PO DAILY 07/31/19 12/01/19 History release Apixaban [Eliquis] 5 mg PO BID 08/20/19 12/01/19 History Metoprolol Succinate 25 mg PO HS 08/20/19 12/01/19 History potassium chloride 20 mEq 20 meq PO DAILY #30 tab 08/26/19 12/01/19 Rx tablet,extended release sacubitril 24 mg-valsartan 26 mg 1 tab PO BID #60 tab 08/31/19 12/01/19 Rx tablet cholecalciferol (vitamin D3) 1,250 1,250 mcg PO WEEKLY cap 10/15/19 12/02/19 History mcg (50,000 unit) capsule Amiodarone HCl [Cordarone 200mg 200 mg PO BID 10/17/19 12/02/19 History tablet] Furosemide [Furosemide 40MG tAB] 40 mg PO DAILY 10/17/19 12/01/19 History Buspirone HCl [Buspar 10mg 10 mg PO BID 12/01/19 12/01/19 History tablet] Montelukast Sodium 10 mg PO HS 12/02/19 12/02/19 History Prazosin HCl [Minipres 1mg capsule] 1 mg PO HS 12/02/19 12/02/19 History Allergies Allergy/AdvReac Type Severity Reaction Status Date / Time morphine Allergy Mild Unknown Verified 12/02/19 07:39 allergy reaction tramadol Allergy Mild Nausea Verified 12/01/19 18:41 Exam Vital signs and Labs for Last 24 Hours: Temp Pulse Resp BP Pulse Ox 98.2 F 86 17 139/67 86 L 12/02/19 04:00 12/02/19 06:07 12/02/19 04:00 12/02/19 04:00 12/02/19 06:07 Laboratory Results - last 24 hr 12/01/19 18:30: WBC 10.4, RBC 4.22, Hgb 12.6, Hct 39.2, MCV 92.9, MCH 29.8, MCHC 32.1, RDW 13.0, Plt Count 269, MPV 9.2, Neut % (Auto) 67.8, Lymph % (Auto) 21.6, [place] % (Auto) 6.0, Eos % (Auto) 4.0, Baso % (Auto) 0.5, Neut # (Auto) 7.1, Lymph # (Auto) 2.3, [place] # (Auto) 0.6, Eos # (Auto) 0.4, Baso # (Auto) 0.1 12/01/19 18:30: Sodium 139, Potassium 3.8, Chloride 101, Carbon Dioxide 31 H, Anion Gap 10.8, BUN 8, Creatinine 0.50 L, Estimated Creat Clear 214, Estimated GFR 126, Est GFR ( Amer) 152, Glucose 203 H, Calcium 9.2, Troponin I 0.02 12/01/19 18:45: Urine Color Yellow, Urine Appearance Clear, Urine pH 7.0, Ur Specific [place] 1.020, Urine Protein Negative, Urine Glucose (UA) Negative, Urine Ketones Negative, Urine Blood Negative, Urine Nitrate Negative, Urine Bilirubin Negative, Urine Urobilinogen 1.0, Ur Leukocyte Esterase Negative, Urine WBC Occasional, Ur Squamous Epith Cells 5-10, Urine Bacteria Trace 12/01/19 18:45: Urine Opiates Screen Negative, Urine Methadone Screen Negative, Ur Barbituates Screen Negative, Ur Phencyclidine Scrn Negative, Ur Amphetamines Screen Negative, U Benzodiazepines Scrn Negative, Urine Cocaine Screen Negative, U Marijuana (THC) Screen Negative 12/01/19 22:02: Troponin I 0.01 12/01/19 22:45: POC Glucose 145 H 12/02/19 00:36: Troponin I 0.02 12/02/19 05:29: POC Glucose 158 H I & O for Last 24 hours: Intake & Output 11/29/19 11/30/19 12/01/19 12/02/19 23:59 23:59 23:59 23:59 Weight 272 lb 11.389 oz 272 lb 11.389 oz - Constitutional no acute distress - *Routine HEENT Exam Head: Present: normocephalic, atraumatic. Absent: tenderness of temporal artery Eye: Present: EOMI, PERRL, normal accommodation. Absent: conjunctival icterus ENT: Present: mucous membranes moist. Absent: sinus tenderness - *Routine Neck Exam Present: supple, full ROM, trachea midline. Absent: JVD, tenderness, tracheal deviation - *Routine Respiratory Exam Present: rhonchi, wheezes. Absent: accessory muscle use - *Routine Abdominal Exam Present: soft, normoactive bowel sounds. Absent: tenderness, firm - *Routine Extremities Exam Present: full ROM, pulses intact. Absent: calf tenderness - Routine Back/Spine/Pelvis Exam Back/Spine: Present: full ROM. Absent: CVA tenderness - *Routine Skin Exam Present: intact. Absent: cyanosis, jaundice - *Routine Neurological Exam Present: alert, oriented X3, CN II-XII intact, moving all extremities. Absent: pronator drift - Routine Psychiatric Exam Present: normal affect, normal thought process. Absent: anxious, agitated Assessment and Plan (1) Chest pain Current visit: Yes Status: Acute Qualifiers: Chest pain type: unspecified Qualified Code(s): R07.9 - Chest pain, unspecified Category: Medical Code(s): R07.9 - Chest pain, unspecified (2) Witnessed seizure-like activity Current visit: Yes Status: Acute Category: Medical Code(s): R56.9 - Unspecified convulsions (3) A-fib Current visit: No Status: Acute Qualifiers: Atrial fibrillation type: unspecified Qualified Code(s): I48.91 - Unspecified atrial fibrillation Category: Medical Code(s): I48.91 - Unspecified atrial fibrillation (4) Cardiomyopathy Current visit: No Status: Chronic Qualifiers: Cardiomyopathy type: ischemic Qualified Code(s): I25.5 - Ischemic cardiomyopathy Category: Medical Code(s): I42.9 - Cardiomyopathy, unspecified (5) Diabetes mellitus Current visit: No Status: Chronic Qualifiers: Diabetes mellitus type: type 2 Diabetes mellitus penitentiary insulin use: unspecified penitentiary insulin use status Diabetes mellitus complication status: with other specified complication Qualified Code(s): E11.69 - Type 2 diabetes mellitus with other specified complication Category: Medical Code(s): E11.9 - Type 2 diabetes mellitus without co mplications (6) Dyspnea Current visit: No Status: Chronic Qualifiers: Dyspnea type: dyspnea on exertion Qualified Code(s): R06.09 - Other forms of dyspnea Category: Medical Code(s): R06.00 - Dyspnea, unspecified (7) HHD (hypertensive heart disease) Current visit: No Status: Chronic Qualifiers: Heart failure presence: with heart failure Heart failure type: combined systolic and diastolic Heart failure chronicity: chronic Qualified Code(s): I11.0 - Hypertensive heart disease with heart failure Category: Medical Code(s): I11.9 - Hypertensive heart disease without heart failure (8) HLD (hyperlipidemia) Current visit: No Status: Chronic Qualifiers: Hyperlipidemia type: mixed hyperlipidemia Qualified Code(s): E78.2 - Mixed hyperlipidemia Category: Medical Code(s): E78.5 - Hyperlipidemia, unspecified - Assessment and plan all Dx Assessment and Plan for all problems:: Rounded with Dr. Conrad, all orders per Dr. Conrad 1. Consult cardiology 2. 2D echo 3. ESR 4. We will consult neurology as outpatient 5. Respiratory panel
--- NOTE | 2019-12-02 09:52 | Consult Report ---
History of Present Illness Consult date: 12/02/19 Requesting physician: Rudolph Conrad Consult reason: chest pain Chief complaint: chest pain Additional Medical History:: 1. htn 2. hld 3. systolic chf 4. normal cors 5. afib on Eliquis 6. DM 7. GERD LHC 08.03.2019 shows: The left main artery Normal The left anterior descending artery Normal The circumflex artery Normal The right coronary artery Dominant normal The CHENG ventriculogram reveals Reduced ejection fraction 30 to 35% The left ventricular end-diastolic pressure Less than 10 mmHg IMPRESSION Normal coronary arteries Reduced ejection fraction Normal left ventricular end-diastolic pressure PLAN 1. Medical management DANIS 08.20.2019 shows: 1. Biatrial enlargement, there is no thrombus seen in left atrium or left atrial appendage, there is poor appendage flow by spectral Doppler. 2. Dilated left ventricle with reduced left ventricular systolic function, visually estimated ejection fraction 30% with left ventricle globally hypokinetic. 3. Moderate mitral and tricuspid regurgitation 4. Agitated saline contrast study fails to identify intracardiac shunt. 5. No significant pericardial effusion noted. History of present illness: This is a 59-year-old white female who presented to the emergency department via private car complaining of a seizure and chest pains. The patient states that she was at a restaurant eating when she began to feel odd. She states that all day she felt like she was going into atrial fibrillation and then while at the restaurant had a full-blown seizure where she was shaking all of her extremities and her eyes were rolling in the back of her head. Her states that this lasted for approximately 45 seconds. He states her eyes looked as if they were going to pop out of her head. She spit out all of her food. The patient does not remember any of this happening. She was incontinent of some urine. She did not lose bowel control. She called 911 and the ambulance was going to take her to [facility]. She refused to go to the hospital at [place] and got into her own car and came to the emergency department here at [facility]. The patient states that after this seizure episode that everyone told her she had when she woke up she did feel some twinges of pain in the left side of her chest. She states that this only lasted very briefly. She states that it was no significant pain. There were no associated symptoms and nothing made it worse or better. The patient has known normal coronary arteries from July 2019. She has no history of seizures. She denies any drug or alcohol use. She does have a history of paroxysmal atrial fibrillation. She is on Eliquis for anticoagulation and was recently cardioverted. She is status post biventricular pacemaker placement. The patient did undergo interrogation of her biventricular pacemaker this morning. It shows that she did have some episodes of atrial fibrillation yesterday nothing lasting greater than 10 seconds and her rate was controlled. Some of these episodes were PACs and some were true paroxysms of atrial fibrillation. No ventricular episodes or arrhythmias noted. this most likely did not cause her questionable seizure-like activity per Dr. Hernandez. The patient reports that she is scheduled to undergo an EEG today. CT of the brain was negative for CVA. Following her episode yesterday she did have a headache. She states her headache is much improved today. [facility] History I have reviewed the patient's past medical history: Yes Medical History: Reports:: Arrhythmia, Atrial Fibrillation, Congestive Heart Failure, Chronic Obstructive Pulmonary Disease (COPD), Diabetes Mellitus Type 2, Gastroesophageal Reflux Disease(GERD), Hyperlipidemia, Hypertension, Internal Pacemaker, Myocardial Infarction Denies:: Cancer, Diabetes Mellitus Type 1, MRSA, Seizures *Have you ever received a pneumonia vaccine?: No *Have you received a flu vaccine this season?: Yes Other Medical History: Reports: Sinus Problems Other Surgeries: Yes: Cardiac Catheterization, Cholecystectomy, Colonoscopy, Pacemaker, Sinus Surgery, Tubal Ligation Amputation: No Fractures: No - *Social History Educational Level: Completed [employer] Smoking Status: Former smoker Tobacco Type: cigarettes # Packs/Day (cigarettes): 0 #Yrs smoked (if former smoker): 20 Smoking End Date: Alcohol Intake: never Substance Use Type: denies use *Occupational Status:: disabled Housing: house Household Members: spouse, family *Travel in the last 8 weeks: None Family Hx:: Asthma, Cancer, Diabetes, Heart Attack, Hyperlipidemia, Hyper tension, Stroke, Other Meds Home Medications Medication Instructions Recorded Confirmed Type albuterol sulfate 90 mcg/actuation 2 puff IH Q6HP PRN 06/04/19 12/01/19 History aerosol inhaler azelastine-fluticasone 137 mcg-50 1 spray INTRANASAL BID 06/04/19 12/01/19 History mcg/spray nasal spray citalopram 20 mg tablet 20 mg PO DAILY 06/04/19 12/01/19 History glipizide 5 mg tablet 5 mg PO DAILY 06/04/19 12/01/19 History metformin 1,000 mg tablet,extended 1,000 mg PO DAILY 06/04/19 12/01/19 History release 24hr aspirin 81 mg tablet,delayed 81 mg PO DAILY 07/31/19 12/01/19 History release Apixaban [Eliquis] 5 mg PO BID 08/20/19 12/01/19 History Metoprolol Succinate 25 mg PO HS 08/20/19 12/01/19 History potassium chloride 20 mEq 20 meq PO DAILY #30 tab 08/26/19 12/01/19 Rx tablet,extended release sacubitril 24 mg-valsartan 26 mg 1 tab PO BID #60 tab 08/31/19 12/01/19 Rx tablet cholecalciferol (vitamin D3) 1,250 1,250 mcg PO WEEKLY cap 10/15/19 12/02/19 History mcg (50,000 unit) capsule Amiodarone HCl [Cordarone 200mg 200 mg PO BID 10/17/19 12/02/19 History tablet] Furosemide [Furosemide 40MG tAB] 40 mg PO DAILY 10/17/19 12/01/19 History Buspirone HCl [Buspar 10mg 10 mg PO BID 12/01/19 12/01/19 History tablet] Montelukast Sodium 10 mg PO HS 12/02/19 12/02/19 History Prazosin HCl [Minipres 1mg capsule] 1 mg PO HS 12/02/19 12/02/19 History Allergies Allergy/AdvReac Type Severity Reaction Status Date / Time morphine Allergy Mild Unknown Verified 12/02/19 07:39 allergy reaction tramadol Allergy Mild Nausea Verified 12/01/19 18:41 Review of Systems - Review of Systems Review of systems:: pertinent systems reviewed and negative unless documented below - Constitutional Reports fatigue - *Cardiovascular Reports chest pain, Reports chest pain at rest - *Neurologic Reports headache(s), Reports seizure-like activity, Denies behavioral changes Exam Vital signs and Labs for Last 24 Hours: Temp Pulse Resp BP Pulse Ox 97.9 F 62 20 136/60 95 12/02/19 08:00 12/02/19 08:00 12/02/19 08:00 12/02/19 08:00 12/02/19 08:00 Laboratory Results - last 24 hr 12/01/19 18:30: WBC 10.4, RBC 4.22, Hgb 12.6, Hct 39.2, MCV 92.9, MCH 29.8, MCHC 32.1, RDW 13.0, Plt Count 269, MPV 9.2, Neut % (Auto) 67.8, Lymph % (Auto) 21.6, [place] % (Auto) 6.0, Eos % (Auto) 4.0, Baso % (Auto) 0.5, Neut # (Auto) 7.1, Lymph # (Auto) 2.3, [place] # (Auto) 0.6, Eos # (Auto) 0.4, Baso # (Auto) 0.1 12/01/19 18:30: Sodium 139, Potassium 3.8, Chloride 101, Carbon Dioxide 31 H, Anion Gap 10.8, BUN 8, Creatinine 0.50 L, Estimated Creat Clear 214, Estimated GFR 126, Est GFR ( Amer) 152, Glucose 203 H, Calcium 9.2, Troponin I 0.02 12/01/19 18:45: Urine Color Yellow, Urine Appearance Clear, Urine pH 7.0, Ur Specific [place] 1.020, Urine Protein Negative, Urine Glucose (UA) Negative, Urine Ketones Negative, Urine Blood Negative, Urine Nitrate Negative, Urine Bilirubin Negative, Urine Urobilinogen 1.0, Ur Leukocyte Esterase Negative, Urine WBC Occasional, Ur Squamous Epith Cells 5-10, Urine Bacteria Trace 12/01/19 18:45: Urine Opiates Screen Negative, Urine Methadone Screen Negative, Ur Barbituates Screen Negative, Ur Phencyclidine Scrn Negative, Ur Amphetamines Screen Negative, U Benzodiazepines Scrn Negative, Urine Cocaine Screen Negative, U Marijuana (THC) Screen Negative 12/01/19 22:02: Troponin I 0.01 12/01/19 22:45: POC Glucose 145 H 12/02/19 00:36: Troponin I 0.02 12/02/19 05:29: POC Glucose 158 H 12/02/19 08:15: ESR 119 H I & O for Last 24 hours: Intake & Output 11/29/19 11/30/19 12/01/19 12/02/19 23:59 23:59 23:59 23:59 Intake Total 360 / 360 Balance 360 / 360 Weight 272 lb 11.389 oz 272 lb 11.389 oz Narrative: Her EKG is AV pacing with a rate of 60. - Constitutional no acute distress, obese - *Routine HEENT Exam Head: Present: normocephalic, atraumatic Eye: Present: EOMI, PERRL ENT: Present: mucous membranes moist - *Routine Neck Exam Present: supple, full ROM, normal carotid upstroke. Absent: JVD, carotid bruit, lymphadenopathy - *Routine Respiratory Exam Present: CTA bilaterally - *Routine Cardiovascular Exam Present: RRR, Normal S1, Normal S2. Absent: murmur - *Routine Abdominal Exam Present: soft, normoactive bowel sounds. Absent: tenderness - *Routine Extremities Exam Present: full ROM, pulses intact, normal capillary refill. Absent: cyanosis, clubbing, edema - *Routine Skin Exam Present: intact, warm. Absent: erythema, rash - *Routine Neurological Exam Present: alert, oriented X3, CN II-XII intact. Absent: sensory deficit, motor deficit - Routine Psychiatric Exam Present: normal affect, normal thought process Assessment and Plan (1) Chest pain Current visit: Yes Status: Acute Qualifiers: Chest pain type: unspecified Qualified Code(s): R07.9 - Chest pain, unspecified Category: Medical Code(s): R07.9 - Chest pain, unspecified (2) Witnessed seizure-like activity Current visit: Yes Status: Acute Category: Medical Code(s): R56.9 - Unspecified convulsions (3) A-fib Current visit: No Status: Acute Qualifiers: Atrial fibrillation type: unspecified Qualified Code(s): I48.91 - Unspecified atrial fibrillation Category: Medical Code(s): I48.91 - Unspecified atrial fibrillation (4) Cardiomyopathy Current visit: No Status: Chronic Qualifiers: Cardiomyopathy type: ischemic Qualified Code(s): I25.5 - Ischemic cardiomyopathy Category: Medical Code(s): I42.9 - Cardiomyopathy, unspecified (5) Diabetes mellitus Current visit: No Status: Chronic Qualifiers: Diabetes mellitus type: type 2 Diabetes mellitus chcf insulin use: unspecified chcf insulin use status Diabetes mellitus complication status: with other specified complication Qualified Code(s): E11.69 - Type 2 diabetes mellitus with other specified complication Category: Medical Code(s): E11.9 - Type 2 diabetes mellitus without complications (6) Dyspnea Current visit: No Status: Chronic Qualifiers: Dyspnea type: dyspnea on exertion Qualified Code(s): R06.09 - Other forms of dyspnea Category: Medical Code(s): R06.00 - Dyspnea, unspecified (7) HHD (hypertensive heart disease) Current visit: No Status: Chronic Qualifiers: Heart failure presence: with heart failure Heart failure type: combined systolic and diastolic Heart failure chronicity: chronic Qualified Code(s): I11.0 - Hypertensive heart disease with heart failure; I50.42 - Chronic combined systolic (congestive) and diastolic (congestive) heart failure Category: Medical Code(s): I11.9 - Hypertensive heart disease without heart failure (8) HLD (hyperlipidemia) Current visit: No Status: Chronic Qualifiers: Hyperlipidemia type: mixed hyperlipidemia Qualified Code(s): E78.2 - Mixed hyperlipidemia Category: Medical Code(s): E78.5 - Hyperlipidemia, unspecified (9) Systolic CHF Current visit: Yes Status: Chronic Category: Medical Code(s): I50.20 - Unspecified systolic (congestive) heart failure - Assessment and plan all Dx Assessment and Plan for all problems:: Plan: 1. The patient was admitted to the hospital after questionable seizure-like activity at a restaurant. The patient states she is scheduled to undergo an EEG today. Will defer management of this to her primary care provider. 2. The patient had some twinges in her chest following the seizure-like activity. The patient has a history of normal coronary arteries. She has ruled out for an NC. No plans for invasive cardiac testing at this time. 3. The patient does have cardiomyopathy and systolic congestive heart failure with an ejection fraction around 30% in July 2019. The patient is currently on Entresto. She has had an echocardiogram this hospital admission and her preliminary ejection fraction is around 40%. Awaiting official interpretation and dictation. 4. The patient did have some paroxysms of atrial fibrillation yesterday throughout the entire day. Nothing greater than 10 seconds. Some of these episodes were just PACs as well. We will increase her metoprolol succinate to 100 mg p.o. daily for suppression of her atrial activity. We will continue her amiodarone. 5. We will continue Eliquis for long-term anticoagulation. 6. Her blood pressure is well controlled. 7. Her LDL goal is less than 100. 8. She is diabetic. She does need aggressive control of her diabetes. Will defer to her primary care provider. 9. As mentioned above we are waiting on the official interpretation of her ech ocardiogram. If the patient's ejection fraction is still less than 35% after 3 months of being on Entresto then will need to consider upgrading her biventricular pacemaker to a biventricular defibrillator on an outpatient basis. If her ejection fraction is greater then 35%, we will continue Entresto and she will not need an upgrade. 10. Further recommendations will be made pending the patient's response to treatment. Thank you for the opportunity to help participate in the care of this patient.
[2019-12-02 12:21] LABS: Coronavirus 229E Not Detected (NotDetected); Coronavirus NL63 Not Detected (NotDetected); Coronavirus OC43 Not Detected (NotDetected); Coronovirus HKU1,PCR Not Detected (NotDetected)
--- NOTE | 2019-12-03 07:54 | Discharge Summary ---
General - General Admission date:: 12/01/19 Discharge date: 12/03/19 HPI HPI: 59-year-old female patient sitting up in chair oxygen on at 2 L per nasal cannula. She reports she is had no further headache, chest pain, or vision difficulties. Patient arrives by private vehicle complaining of a seizure and then chest pains. She says that she was sitting in a fast food restaurant eating when she began feeling odd. She then had what her escapement maker describes as a "full-blown seizure" described as shaking of all the extremities, eyes rolled back, for about 45 seconds. Eyes never closed, "they look like they were going to pop out". She spit out all of her food, but does not remember that. Patient says she was incontinent of a small amount of urine but not stool. She remembers that she was waking up being told that she had had a seizure. 911 was called. Ambulance wanted to take her to [facility] but she did not want to go there so she signed herself out of the ambulance and came here by private vehicle. She says on the way here she began having slight twinges of chest pain lasting very briefly. She has recently had a heart cath. She has no history of seizure disorder. She is not a drinker she does not take any drugs. She says she is recently been ill with a hoarse voice, cough, wheezing, shortness of breath on exertion. She does have a history of atrial fibrillation is anticoagulated with Eliquis. She has had have cardioversion in the past. She has a pacemaker. She says that prior to this episode all day she felt like her right eye was trying to close and she had a right frontal headache. When she awakened from the episode she felt like the muscles on the right side of her face were tense or tight (Per Dr. Pelaez). 12/01/19: Head CT IMPRESSION: No acute intracranial findings Dictated by: Roger, 12/01/19 CXR: IMPRESSION: Mild cardiomegaly with pacemaker present. No acute finding Dictated by: Dr. Duran Hospital Course Hospital Course: pt was admitted with possible sz episode -Patient arrives by private vehicle complaining of a seizure and then chest pains. She says that she was sitting in a fast food restaurant eating when she began feeling odd. She then had what her escapement maker describes as a "full-blown seizure" described as shaking of all the extremities, eyes rolled back, for about 45 seconds. Eyes never closed, "they l ook like they were going to pop out". She spit out all of her food, but does not remember that. Patient says she was incontinent of a small amount of urine but not stool. She remembers that she was waking up being told that she had had a seizure. 911 was called. Ambulance wanted to take her to [facility] but she did not want to go there so she signed herself out of the ambulance and came here by private vehicle. She says on the way here she began having slight twinges of chest pain lasting very briefly. She has recently had a heart cath. She has no history of seizure disorder. She is not a drinker she does not take any drugs. She says she is recently been ill with a hoarse voice, cough, wheezing, shortness of breath on exertion. She does have a history of atrial fibrillation is anticoagulated with Eliquis. She has had have cardioversion in the past. She has a pacemaker. She says that prior to this episode all day she felt like her right eye was trying to close and she had a right frontal headache. When she awakened from the episode she felt like the muscles on the right side of her face were tense or tight. pt w/o prev hx and has rt temporal headache with vision sx and weakness - no sig hx of migraines -pt with pacemaker -no palpitations- pt was seen by card - is a 59-year-old white female who presented to the emergency department via private car complaining of a seizure and chest pains. The patient states that she was at a restaurant eating when she began to feel odd. She states that all day she felt like she was going into atrial fibrillation and then while at the restaurant had a full-blown seizure where she was shaking all of her extremities and her eyes were rolling in the back of her head. Her states that this lasted for approximately 45 seconds. He states her eyes looked as if they were going to pop out of her head. She spit out all of her food. The patient does not remember any of this happening. She was incontinent of some urine. She did not lose bowel control. She called 911 and the ambulance was going to take her to [facility]. She refused to go to the hospital at [place] and got into her own car and came to the emergency department here at [facility]. The patient states that after this seizure episode that everyone told her she had when she woke up she did feel some twinges of pain in the left side of her chest. She states that this only lasted very briefly. She states that it was no significant pain. There were no associated symptoms and nothing made it worse or better. The patient has known normal coronary arteries from July 2019. She has no history of seizures. She denies any drug or alcohol use. She does have a history of paroxysmal atrial fibrillation. She is on Eliquis for anticoagulation and was recently cardioverted. She is status post biventricular pacemaker placement. The patient did undergo interrogation of her biventricular pacemaker this morning. It shows that she did have some episodes of atrial fibrillation yesterday nothing lasting greater than 10 seconds and her rate was controlled. Some of these episodes were PACs and some were true paroxysms of atrial fibrillation. No ventricular episodes or arrhythmias noted. this most likely did not cause her questionable seizure-like activity per Dr. Hernandez. The patient reports that she is scheduled to undergo an EEG today. CT of the brain was negative for CVA. Following her episode yesterday she did have a headache. She states her headache is much improved today. . The patient was admitted to the hospital after questionable seizure-like activity at a restaurant. The patient states she is scheduled to undergo an EEG today. Will defer management of this to her primary care provider. 2. The patient had some twinges in her chest following the seizure-like activity. The patient has a history of normal coronary arteries. She has ruled out for an RI. No plans for invasive cardiac testing at this time. 3. The patient does have cardiomyopathy and systolic congestive heart failure with an ejection fraction around 30% in July 2019. The patient is currently on Entresto. She has had an echocardiogram this hospital admission and her preliminary ejection fraction is around 40%. Awaiting official interpretation and dictation. 4. The patient did have some paroxysms of atrial fibrillation yesterday throughout the entire day. Nothing greater than 10 seconds. Some of these episodes were just PACs as well. We will increase her metoprolol succinate to 100 mg p.o. daily for suppression of her atrial activity. We will continue her amiodarone. 5. We will continue Eliquis for long-term anticoagulation. 6. Her blood pressure is well controlled. 7. Her LDL goal is less than 100. 8. She is diabetic. She does need aggressive control of her diabetes. Will defer to her primary care provider. 9. As mentioned above we are waiting on the official interpretation of her echocardiogram. If the patient's ejection fraction is still less than 35% after 3 months of being on Entresto then will need to consider upgrading her biventricular pacemaker to a biventricular defibrillator on an outpatient basis. If her ejection fraction is greater then 35%, we will continue Entresto and she will not need an upgrade. 10. Further recommendations will be made pending the patient's response to treatment. pt pt with brief episode yesterday but sounds different and will follow up with neurology later this month but discussed sz precautions and start keppra at this time- also her temporal pain with assoc sx with elevated esr - pt has ongoing issues with neuropathy and use walker at home and issues with lt shoulder wirh dec mobility- will defer testing mri/eeg to neurology and will closely follow pt with her diabetes and esr for temporal art and will follow up with card closely Objective Vital signs: Temp Pulse Resp BP Pulse Ox 97.7 F 63 16 141/69 H 96 12/03/19 03:43 12/03/19 05:50 12/03/19 03:43 12/03/19 03:43 12/03/19 05:50 no acute distress, obese - *Routine HEENT Exam Head: Present: normocephalic Eye: Present: EOMI, PERRL ENT: Present: mucous membranes dry - *Routine Neck Exam Present: supple. Absent: JVD - *Routine Respiratory Exam Present: CTA bilaterally - *Routine Cardiovascular Exam Present: RRR, murmur - *Routine Abdominal Exam Present: soft - *Routine Extremities Exam Absent: calf tenderness Comments: dec rom of lt shoulder - *Routine Skin Exam Present: intact Comments: tender rt temporal art - *Routine Neurological Exam Present: alert, oriented X3, CN II-XII intact. Absent: altered mental status - Routine Psychiatric Exam Present: normal affect Results Labs on day of discharge: Labs from last 24 hours 12/03/19 12/02/19 12/02/19 05:42 20:20 16:43 ESR POC Glucose 161 H 202 H 192 H Chlamy pneumoniae PCR Adenovirus (PCR) B. pertussis DNA (PCR) Coronavirus OC43 (PCR) Coronavirus HKU1 (PCR) Coronavirus 229E (PCR) Coronavirus NL63 (PCR) Human Metapneumovir PCR Influenza A (H1) PCR Influ A (H1N1/09) PCR Influenza A (H3) PCR Influenza Type A (PCR) Influenza Type B (PCR) M. pneumoniae (PCR) Parainfluenza 1 (PCR) Parainfluenza 2 (PCR) Parainfluenza 3 (PCR) Parainfluenza 4 (PCR) RSV (PCR) Entero/Rhino (PCR) 12/02/19 12/02/19 12/02/19 12:15 11:33 08:15 ESR 119 H POC Glucose 195 H Chlamy pneumoniae PCR Not detected Adenovirus (PCR) Not detected B. pertussis DNA (PCR) Not detected Coronavirus OC43 (PCR) Not detected Coronavirus HKU1 (PCR) Not detected Coronavirus 229E (PCR) Not detected Coronavirus NL63 (PCR) Not detected Human Metapneumovir PCR Not detected Influenza A (H1) PCR Not detected Influ A (H1N1/09) PCR Not detected Influenza A (H3) PCR Not detected Influenza Type A (PCR) Not detected Influenza Type B (PCR) Not detected M. pneumoniae (PCR) Not detected Parainfluenza 1 (PCR) Not detected Parainfluenza 2 (PCR) Not detected Parainfluenza 3 (PCR) Not detected Parainfluenza 4 (PCR) Not detected RSV (PCR) Not detected Entero/Rhino (PCR) Not detected DS: Diagnosis - Discharge Diagnosis (1) Chest pain Status: Acute (2) Witnessed seizure-like activity Status: Acute (3) A-fib Status: Acute (4) Cardiomyopathy Status: Chronic (5) Diabetes mellitus Status: Chronic (6) Dyspnea Status: Chronic (7) HHD (hypertensive heart disease) Status: Chronic (8) HLD (hyperlipidemia) Status: Chronic (9) Systolic CHF Status: Chronic (10) Temporal arteritis Status: Acute (11) Obesity Status: Acute (12) Neuropathy Status: Acute (13) Shoulder pain, left Status: Acute Discharge Plan - Patient Discharge Instructions ACTIVITY: Continue current activity DIET: continue same diet Patient Instructions: Seizure Disorder -- Adult, DI for Seizure Disorder -- Adult, DI for Chest Pain, Giant Cell Arteritis - Follow up Plan Follow up with: Polina Cisneros MD [Staff Physician] - 12/14/19 12:30 pm Disposition: Home, Self-Group Home Medications: Home Medications Medication Instructions Recorded Confirmed Type albuterol sulfate 90 mcg/actuation 2 puff IH Q6HP PRN 06/04/19 12/01/19 History aerosol inhaler glipizide 5 mg tablet 5 mg PO DAILY 06/04/19 12/01/19 History metformin 1,000 mg tablet,extended 1,000 mg PO DAILY 06/04/19 12/01/19 History release 24hr aspirin 81 mg tablet,delayed 81 mg PO DAILY 07/31/19 12/01/19 History release Apixaban [Eliquis] 5 mg PO BID 08/20/19 12/01/19 History Metoprolol Succinate 25 mg PO HS 08/20/19 12/01/19 History potassium chloride 20 mEq 20 meq PO DAILY #30 tab 08/26/19 12/01/19 Rx tablet,extended release sacubitril 24 mg-valsartan 26 mg 1 tab PO BID #60 tab 08/31/19 12/01/19 Rx tablet cholecalciferol (vitamin D3) 1,250 1,250 mcg PO WEEKLY cap 10/15/19 12/02/19 History mcg (50,000 unit) capsule Amiodarone HCl [Cordarone 200mg 200 mg PO BID 10/17/19 12/02/19 History tablet] Furosemide [Furosemide 40MG tAB] 40 mg PO DAILY 10/17/19 12/01/19 History Buspirone HCl [Buspar 10mg 10 mg PO BID 12/01/19 12/01/19 History tablet] Citalopram Hydrobromide 20 mg PO DAILY 12/02/19 12/02/19 History [Citalopram HBr] Fluticasone Propionate [Flonase 1 spr NS DAILY 12/02/19 12/02/19 History 50mcg nasal spray 16gm] Montelukast Sodium 10 mg PO HS 12/02/19 12/02/19 History Prazosin HCl [Minipress] 1 mg PO HS 12/02/19 12/02/19 History Metoprolol Succinate 50 mg PO DAILY #30 tab.er.24h 12/03/19 Rx levETIRAcetam [Keppra 500mg tablet] 500 mg PO BID #30 tab 12/03/19 Rx predniSONE [Prednisone 20mg 20 mg PO BID #10 tab 12/03/19 Rx Tab] Prescriptions/Medication Reconciliation: New Aspirin [Aspirin 81mg EC Tab] 81 mg PO DAILY tablet. Apixaban [Eliquis 5mg Tablet] 5 mg PO BID tablet Apixaban [Eliquis 5mg Tablet] 5 mg PO BID tablet Sacubitril/Valsartan [Entresto 24/26mg Tablet] 1 each PO BID tablet Sacubitril/Valsartan [Entresto 24/26mg Tablet] 1 each PO BID tablet Potassium Chloride [Klor-con 20 mEq tablet] 20 meq PO DAILY tablet Furosemide [Lasix 40mg tablet] 40 mg PO DAILY tablet Prazosin HCl [Minipres 1mg capsule] 1 mg PO HS capsule Nystatin [Nystatin Topical Powder 30GM*] 0 gm TP NEEDED PRN bottle PRN Reason: YEAST INFECTION Montelukast Sodium [Singulair 10mg tablet] 10 mg PO PM tablet levETIRAcetam [Keppra 500mg tablet] 500 mg PO BID #30 tab Buspirone HCl [Buspar 10mg tablet] 10 mg PO BID tablet Citalopram Hydrobromide [Celexa 20mg Tablet] 20 mg PO DAILY tablet Amiodarone HCl [Cordarone 200mg tablet] 200 mg PO DAILY tablet Amiodarone HCl [Cordarone 200mg tablet] 200 mg PO DAILY tablet glipiZIDE [Glucotrol 5mg tablet] 5 mg PO DAILY tablet Non Formulary [Pt's Own Medication] 1 each PO DAILY each Metoprolol Succinate 50 mg PO DAILY #30 tab.er.24h predniSONE [Prednisone 20mg Tab] 20 mg PO BID #10 tab Continued albuterol sulfate 90 mcg/actuation aerosol inhaler 2 puff IH Q6HP PRN PRN Reason: COPD glipizide 5 mg tablet 5 mg PO DAILY metformin 1,000 mg tablet,extended release 24hr 1,000 mg PO DAILY aspirin 81 mg tablet,delayed release 81 mg PO DAILY potassium chloride 20 mEq tablet,extended release 20 meq PO DAILY #30 tab cholecalciferol (vitamin D3) 1,250 mcg (50,000 unit) capsule 1,250 mcg PO WEEKLY cap sacubitril 24 mg-valsartan 26 mg tablet 1 tab PO BID #60 tab Furosemide [Furosemide 40MG tAB] 40 mg PO DAILY Prazosin HCl [Minipress] 1 mg PO HS Fluticasone Propionate [Flonase 50mcg nasal spray 16gm] 1 spr NS DAILY Citalopram Hydrobromide [Citalopram HBr] 20 mg PO DAILY Apixaban [Eliquis] 5 mg PO BID Amiodarone HCl [Cordarone 200mg tablet] 200 mg PO BID Buspirone HCl [Buspar 10mg tablet] 10 mg PO BID Montelukast Sodium 10 mg PO HS Discontinued Metoprolol Succinate 25 mg PO HS - Problem Reconciliation Problems Reviewed?: Yes
--- NOTE | 2019-12-04 08:51 | Electrocardiograph Report ---
APPROVED REPORT Exam: Resting ECG HR:60 bpm ECG Measurements Heart Rate 60 AXES VT 104 P 99 QRSd 144 QRS 129 QT 440 T-66 QTc 440 <Conclusion> Suspect arm lead reversal, interpretation assumes no reversal Electronic atrial pacemaker Nonspecific intraventricular block Cannot rule out Septal infarct, age undetermined Lateral infarct, age undetermined Cannot rule out Inferior infarct, age undetermined Abnormal ECG Electronically signed by : Eric Oglesby, 12/04/2019 08:51:16
== END 2019-12-03 10:27 | disposition home or self-care (01) ==
LOC: ER 18:30 → 2ND 18:30
PROVIDERS: ADMIT Internal Medicine Adolescent Medicine; ATTEND Emergency Medicine
DX: I25.5 Ischemic cardiomyopathy; Z87.891 Personal history of nicotine dependence; R56.9 Unspecified convulsions; Z95.0 Presence of cardiac pacemaker; Z79.899 Other long term (current) drug therapy; I48.0 Paroxysmal atrial fibrillation; J44.9 Chronic obstructive pulmonary disease, unspecified; I25.2 Old myocardial infarction; Z79.84 Long term (current) use of oral hypoglycemic drugs; I11.0 Hypertensive heart disease with heart failure; Z79.01 Long term (current) use of anticoagulants; R07.9 Chest pain, unspecified; E11.42 Type 2 diabetes mellitus with diabetic polyneuropathy; I50.22 Chronic systolic (congestive) heart failure
CPT/HCPCS: 36415; 70450; 71010; 71045; 80048; 80305; 81001; 82962; 84484; 85025; 85651; 87486; 87581; 87633; 87798; 93005; 93306; 94640; 96374; 96375; 97161; 97165; 99282; 99284; G0378; J2405

== ENCOUNTER → 2019-12-14 13:40 | Outpatient (CLI) | payer MEDICARE, OTHER, SELFPAY | PROVIDERS: PCP Nurse Practitioner Family; Visit Provider Specialist | DX: G40.909 Epilepsy, unspecified, not intractable, without status epilepticus (principal); R41.89 Other symptoms and signs involving cognitive functions and awareness; Z86.79 Personal history of other diseases of the circulatory system | CPT/HCPCS: 95816 ==

== ENCOUNTER → 2019-12-16 20:05 | Outpatient (CLI) | payer MEDICARE, OTHER, SELFPAY | PROVIDERS: PCP Nurse Practitioner Family; Visit Provider Specialist | DX: G47.33 Obstructive sleep apnea (adult) (pediatric) (principal); E66.9 Obesity, unspecified | CPT/HCPCS: 95810 ==

== ENCOUNTER → 2019-12-23 09:20 | Outpatient (CLI) | payer MEDICARE, OTHER, SELFPAY ==
--- NOTE | 2019-12-23 09:37 | CT_ITS ---
Procedure: CT ANGIO HEAD CLINICAL HISTORY: evaluation for IMPORT DISPATCHER vasculitis Frontal headache, questionable seizure, possible IMPORT DISPATCHER vasculitis/cephalopathy COMPARISON: CT HEAD/BRAIN WO CON from 12/01/2019 TECHNIQUE: IV Contrast: 100ml Optiray 350 Axial images obtained with sagittal and coronal reformats. All CT scans at the facility use one or more dose reduction, viz: automated exposure control, ma/kV adjustment per patient size (including targeted exams where dose is matched to indication, i.e. head), or iterative reconstruction technique. FINDINGS: No aneurysm, AVM, or major intracranial occlusive process is evident. No beading of the intracranial vasculature. No segmental stenotic lesions apparent. There are some atheromatous changes of the intracranial carotids bilaterally without significant stenosis. The vessels of the vertebrobasilar system are fairly small which is nonspecific. This however does not appear focal and may be variation of normal. There is persistent origin of the left posterior cerebral artery. Delayed images show no evidence of sagittal sinus thrombosis. No enhancing lesions are evident. No midline shift or mass effect. 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 IMPRESSION: 1. No aneurysm AVM or intracranial occlusive process evident. 2. Basilar and vertebral arteries are small but could be related to normal variant. There is persistent origin of the left posterior cerebral artery as a normal variant Dictated by: Loc Duran MD 12/24/2019 13:13 Electronically signed by Loc Duran MD in [facility] 12/24/2019 13:13
[2019-12-23 10:20] LABS: Chloride 100 mmol/L (98-107); Potassium 4.3 mmoL/L (3.5-5.1); Sodium 135 mmol/L (136-145)
[2019-12-23 10:23] LABS: Anion Gap 7.3 mEq/L (5-15); Carbon Dioxide 32 mmol/L (22.0-30.0)
[2019-12-23 10:24] LABS: Calcium 9.2 mg/dl (8.4-10.2); Glucose 216 mg/dl (74-100)
[2019-12-23 10:29] LABS: C-Reactive Protein 14.7 mg/L (0-4)
[2019-12-23 10:34] LABS: Erythrocyte Sedimentation Rate 38 mm/hr (0-30)
[2019-12-23 10:36] LABS: Blood Urea Nitrogen 15 mg/dl (7-17); Estimated Glomerular Filt Rate 102 ml/min (>60); GFR (African American) 123 ML/MIN (>60)
== END ==
PROVIDERS: PCP Nurse Practitioner Family; Visit Provider Specialist
DX: R41.89 Other symptoms and signs involving cognitive functions and awareness; G40.909 Epilepsy, unspecified, not intractable, without status epilepticus; G47.33 Obstructive sleep apnea (adult) (pediatric); R53.83 Other fatigue; Z86.79 Personal history of other diseases of the circulatory system; G89.29 Other chronic pain; M25.512 Pain in left shoulder; Z86.69 Personal history of other diseases of the nervous system and sense organs
CPT/HCPCS: 36415; 70496; 80048; 85651; 86140; Q9967

== ENCOUNTER → 2019-12-25 10:05 | Outpatient (CLI) | payer MEDICARE, OTHER, SELFPAY ==
--- NOTE | 2019-12-25 10:12 | XR_ITS ---
PROCEDURE: XR SHOULDER LT MIN 2V CLINICAL INDICATION: left shoulder pain Left shoulder pain COMPARISON: XR SHOULDER LT MIN 2V from 11/12/2019 FINDINGS: Pacemaker is present from left subclavian approach. There are minimal osteoarthritic changes of the left shoulder. There is a lucency along the inferior aspect of the glenoid which could represent a bony Bankart lesion age indeterminate. CT may confirm. No other significant anomalies are evident. IMPRESSION: Lucency along the inferior glenoid labrum which may represent a bony Bankart lesion. CT may confirm. Dictated by: Loc Duran MD 12/25/2019 13:38 Electronically signed by Loc Duran MD in [facility] 12/25/2019 13:38
== END ==
PROVIDERS: PCP Nurse Practitioner Family; Visit Provider Orthopaedic Surgery
DX: M25.512 Pain in left shoulder (principal)
CPT/HCPCS: 73030

== ENCOUNTER → 2020-01-11 17:08 | Outpatient (CLI) | payer MEDICARE, OTHER, SELFPAY ==
[2020-01-11 17:27] LABS: Basophils # 0.1 K/mm3 (0-0.2); Basophils % 0.4 % (0.1-2.0); Eosinophils # 0.1 K/mm3 (0.0-0.4); Hematocrit 43.5 % (37.0-47.0); Lymphocytes # 2.3 K/mm3 (0.7-4.5); Lymphocytes % 16.1 % (10-50); Mean Corpuscular HGB Conc 32.2 g/dL (31.8-35.4); Mean Corpuscular Volume 93.2 fl (81-99); Monocytes # 0.9 K/mm3 (0.1-1.0); Monocytes % 6.5 % (1.7-9.3); Neutrophils # 10.6 K/mm3 (1.8-7.8); Neutrophils % 75.9 % (37.0-80.0); Platelet Count 279 K/mm3 (142-424); Red Blood Count 4.67 M/mm3 (4.20-5.40); Red Cell Distribution Width 12.5 % (11.5-17.5)
== END ==
PROVIDERS: Visit Provider Specialist
DX: D72.829 Elevated white blood cell count, unspecified (principal)
CPT/HCPCS: 36415; 85025

== ENCOUNTER → 2020-01-15 11:20 | Outpatient (CLI) | payer MEDICARE, OTHER, SELFPAY ==
--- NOTE | 2020-01-15 11:25 | US_ITS ---
PROCEDURE: US TRANSVAGINAL CLINICAL INDICATION: bleeding Postmenopausal bleeding COMPARISON: No exams were available for comparison FINDINGS: The uterus is 7.5 x 4 x 3.9 cm with a combined endometrial thickness of 4 mm. Nabothian cysts are present. There are several areas of increased echogenicity within the uterus consistent with fibroids measuring 1.3 x 0.8 cm in the anterior fundus, 2 x 1.9 cm in the posterior body of the uterus, 1.3 by 1.4 cm in the lower uterine segment posteriorly. LEFT OVARY: [id number] with a volume of 9.1ml. RIGHT OVARY: [id number] with a volume of 1.7ml. No cul-de-sac fluid apparent. IMPRESSION: Uterine fibroids otherwise negative Dictated by: Loc Duran MD 01/15/2020 16:21 Electronically signed by Loc Duran MD in [facility] 01/15/2020 16:21
== END ==
PROVIDERS: PCP Emergency Medicine; Visit Provider Obstetrics & Gynecology
DX: N95.0 Postmenopausal bleeding (principal)
CPT/HCPCS: 76830

== ENCOUNTER 2020-02-29 15:30 | Observation (INO) | payer MEDICARE, OTHER, SELFPAY ==
[2020-02-29] VITALS (8 sets, daily range): BP systolic 128–155; BP diastolic 51–80; PULSE 60–71; RESP 18; TEMP 36.6–36.9; O2SAT 93–98; BMI 40.3; BMI 43.0
--- NOTE | 2020-02-29 15:27 | ECG_ITS ---
APPROVED REPORT Exam: Resting ECG HR:60 bpm ECG Measurements Heart Rate 60 AXES QRSd 150 QRS 119 QT 578 T -78 QTc 578 <Conclusion> Electronic atrial pacemaker Abnormal ECG Electronically signed by : Eric Oglesby, 03/01/2020 15:49:55
--- NOTE | 2020-02-29 15:37 | XR_ITS ---
PROCEDURE: XR CHEST PORTABLE CLINICAL HISTORY: sob Shortness of breath, heart disease COMPARISON: XR CHEST 2V from 08/20/2019 XR CHEST 2V from 10/17/2019 XR CHEST PORTABLE from 12/01/2019 FINDINGS: Mild cardiomegaly without failure. Biventricular pacemaker with right atrial lead is present The lungs are clear without infiltrates, suspicious nodules, or pleural effusions. No acute bony abnormalities. IMPRESSION: Mild cardiomegaly with pacemaker present, no change with no acute finding Dictated by: Loc Duran MD 02/29/2020 16:04 Electronically signed by Loc Duran MD in [facility] 02/29/2020 16:04
[2020-02-29 15:45] LABS: Basophils # 0.2 K/mm3 (0-0.2); Basophils % 1.6 % (0.1-2.0); Eosinophils # 0.2 K/mm3 (0.0-0.4); Hematocrit 40.2 % (37.0-47.0); Hemoglobin 13.3 g/dL (12.2-16.2); Lymphocytes % 17.5 % (10-50); Mean Corpuscular HGB Conc 33.1 g/dL (31.8-35.4); Mean Corpuscular Hemoglobin 31.4 pg (27.0-31.2); Mean Corpuscular Volume 94.9 fl (81-99); Mean Platelet Volume 9.3 fl (7.4-10.4); Monocytes # 0.8 K/mm3 (0.1-1.0); Monocytes % 7.1 % (1.7-9.3); Neutrophils # 8.3 K/mm3 (1.8-7.8); Neutrophils % 71.7 % (37.0-80.0); Platelet Count 224 K/mm3 (142-424); Red Blood Count 4.23 M/mm3 (4.20-5.40); Red Cell Distribution Width 13.3 % (11.5-17.5); White Blood Count 11.5 K/mm3 (4.8-10.8)
[2020-02-29 16:09] LABS: Chloride 100 mmol/L (98-107); Potassium 3.3 mmoL/L (3.5-5.1); Sodium 138 mmol/L (136-145)
--- NOTE | 2020-02-29 16:09 | PC.NURSE ---
Amy Giles, with Cardiology at bedside interrogating pacemaker.
[2020-02-29 16:12] LABS: Alanine Aminotransferase 28 U/L (12-78); Anion Gap 8.3 mEq/L (5-15); Aspartate Amino Transferase 27 U/L (14-36); Bilirubin,Unconjugated 0.5 mg/dL (0.0-1.1); Blood Urea Nitrogen 11 mg/dl (7-17); Calcium 8.5 mg/dl (8.4-10.2); Carbon Dioxide 33 mmol/L (22.0-30.0); Creatinine Clearance Estimated 134 mL/min (50-200); Estimated Glomerular Filt Rate 73 ml/min (>60); GFR (African American) 89 ML/MIN (>60); Glucose 207 mg/dl (74-100)
[2020-02-29 16:13] LABS: Albumin Level 3.9 g/dl (3.5-5.0); Alkaline Phosphatase 97 U/L (38-126); Bilirubin,Direct 0.2 mg/dl (0.0-0.4); Bilirubin,Indirect 0.5 mg/dL (0.0-0.9); Bilirubin,Total 0.7 mg/dl (0.2-1.3)
--- NOTE | 2020-02-29 16:18 | [facility].EDSOB ---
ED Disposition Clinical Impression: Near syncope, Biventricular cardiac pacemaker in situ Obesity Qualifiers: Obesity type: due to excess calories Obesity classification: adult class 3 (BMI >= 40) Serious obesity comorbidity presence: with serious comorbidity Body mass index: BMI 40.0-44.9 Qualified Code(s): E66.01 - Morbid (severe) obesity due to excess calories; Z68.41 - Body mass index (BMI) 40.0-44.9, adult Congestive heart failure Qualifiers: Heart failure type: unspecified Heart failure chronicity: acute on chronic Qualified Code(s): I50.9 - Heart failure, unspecified Diabetes mellitus Qualifiers: Diabetes mellitus type: type 2 Diabetes mellitus termite inspector insulin use: unspecified termite inspector insulin use status Diabetes mellitus complication status: with other specified complication Qualified Code(s): E11.69 - Type 2 diabetes mellitus with other specified complication Disposition: Admitted as Observation Condition on Discharge: Good - Critical Care Critical Care Time: No Attestation: On 02/29/20, the high probability of a clinically significant, sudden or life threatening deterioration of the following system(s) required my full and direct attention, intervention and personal management. The time I documented below is in addition to time spent performing reported procedures but includes the following listed in this critical care notation. Medical Decision Making - Medical Records Medical records reviewed: Yes: I reviewed the patient's medical records. - Feliberto Inquiry Pt receiving controlled substance: No Vital Signs: 02/29/20 15:31 02/29/20 16:08 02/29/20 16:42 Temperature 98.2 F Temperature Source Oral Pulse Rate [Left Radial] 71 60 60 Respiratory Rate 18 Blood Pressure [Right Arm] 155/63 H 134/51 L 143/59 H Blood Pressure Mean [Right Arm] 93 78 87 Blood Pressure Source [Right Arm] Automatic Cuff Automatic Cuff Blood Pressure Position [Right Arm] Sitting Sitting Sitting 02 Sat by Pulse Oximetry 98 93 L 95 Oxygen Delivery Method Room Air Room Air Room Air - Lab Data Lab results reviewed: Yes: I reviewed the patient's lab results. Lab Results 02/29/20 15:33: WBC 11.5 H, RBC 4.23, Hgb 13.3, Hct 40.2, MCV 94.9, MCH 31.4 H, MCHC 33.1, RDW 13.3, Plt Count 224, MPV 9.3, Neut % (Auto) 71.7, Lymph % (Auto) 17.5, [place] % (Auto) 7.1, Eos % (Auto) 2.0, Baso % (Auto) 1.6, Neut # (Auto) 8.3 H, Lymph # (Auto) 2.0, [place] # (Auto) 0.8, Eos # (Auto) 0.2, Baso # (Auto) 0.2 02/29/20 15:33: Sodium 138, Potassium 3.3 L, Chloride 100, Carbon Dioxide 33 H, Anion Gap 8.3, BUN 11, Creatinine 0.80, Estimated Creat Clear 134, Estimated GFR 73, Est GFR ( Amer) 89, Glucose 207 H, Calcium 8.5, Troponin I < 0.01, NT-Pro-B Natriuret Pep 1120 H 02/29/20 15:33: Total Bilirubin 0.7, Direct Bilirubin 0.2, Conjugated Bilirubin 0.0, Indirect Bilirubin 0.5, Unconjugated Bilirubin 0.5, AST 27, ALT 28, Alkaline Phosphatase 97, Total Protein 7.0, Albumin 3.9 Result diagrams: 02/29/20 15:33 02/29/20 15:33 Orders (Tests/Meds): ED MEDICATIONS Discontinued Medications Generic Name Dose Route Start Last Admin Trade Name Freq PRN Reason Stop Dose Admin Furosemide 40 mg 02/29/20 16:38 Lasix 40mg/4ml Vial IV 02/29/20 16:39 ONCE ONE ORDERS Category Date Time Status T4 (Thyroxine) Stat Lab 02/29/20 16:34 Ordered TSH [Thyroid Stimulating Hormone] Stat Lab 02/29/20 16:34 Ordered Troponin I Q3H Lab 02/29/20 18:45 Ordered Troponin I Q3H Lab 02/29/20 21:45 Ordered - Radiology Data #1 Image(s): Chest Image Reviewed: Yes I reviewed the patient's radiology image Preliminary Findings: Normal/NAD - ECG Data Tracing #1 Arrhythmias present: other (paced ) - NORMA Score for Non-Stemi Age of Patient: 60-69 years old Heart Rate: 70-89 bpm Systolic Blood Pressure: 140-159 mmHg Serum Creatinine: 0.80-1.19 mg/dl CHF Killip Class: II-Pulmonary Rales or Jug Other Risk Factors: None Non-Stem
[2020-02-29 16:22] LABS: NT Pro Brain Natriuretic Pep. 1120 pg/mL (0-125)
[2020-02-29 16:25] LABS: Troponin I < 0.01 ng/ml (0.00-0.034)
--- NOTE | 2020-02-29 17:18 | PC.NURSE ---
Pt up to restroom. Urinated 350ml at this time.
--- NOTE | 2020-02-29 17:24 | PC.NURSE ---
report called to floor
--- NOTE | 2020-02-29 17:29 | PC.NURSE ---
report called to floor
--- NOTE | 2020-02-29 17:52 | PC.NURSE ---
Pt up to restroom again at this time. Urinated 500ml total output at this time 850
[2020-02-29 18:08] LABS: Coronavirus 19 IgG Antibody Negative (Negative); Coronavirus 19 IgM Antibody Negative (Negative)
--- NOTE | 2020-02-29 19:11 | PC.NURSE ---
Patient is unable to verify home medications during admission, she reports she is unsure whether she has been taking entresto or eliquis at home. She states, At home I take the pink pill and have been out of the white pill is all I can tell you. I notified Brenda Roth RN primary nurse that patient is unable to verify meds or the last time she took them. I asked patient to have family bring in her medication bottles and she states she cant bring her medications in.
--- NOTE | 2020-02-29 19:11 | PC.NURSE ---
report given to hemanth
--- NOTE | 2020-02-29 19:15 | PC.NURSE ---
REPORT RECEIVED FROM Izaiah BOLIVAR RN.
--- NOTE | 2020-02-29 19:16 | HMH.HP ---
*Admission Date: 02/29/20 *Chief complaint: palpitation *History of present illness: this pt presented to the ed -pt has 3 episodes of palpitations and near syncope and has no chest pain but feels sob and increasing lower ext edema [facility] History I have reviewed the patient's past medical history: Yes Medical History: Reports:: Arrhythmia, Atrial Fibrillation, Congestive Heart Failure, Chronic Obstructive Pulmonary Disease (COPD), Diabetes Mellitus Type 2, Gastroesophageal Reflux Disease(GERD), Heart Murmur, Hyperlipidemia, Hypertension, Internal Pacemaker, Myocardial Infarction, Palpitations Denies:: Cancer, Diabetes Mellitus Type 1, MRSA, Seizures *Have you ever received a pneumonia vaccine?: Yes *Have you received a flu vaccine this season?: Yes Other Medical History: Reports: Anemia, Arthritis, Fibromyalgia, Sinus Problems Other Surgeries: Yes: Cardiac Catheterization, Cholecystectomy, Colonoscopy, Pacemaker, Sinus Surgery, Tubal Ligation Amputation: No Fractures: No - *Social History Educational Level: Attended College Smoking Status: Former smoker Tobacco Type: cigarettes # Packs/Day (cigarettes): 0 #Yrs smoked (if former smoker): 20 Smoking End Date: 2009 Alcohol Intake: never Substance Use Type: denies use *Occupational Status:: disabled Housing: house Household Members: none *Travel in the last 8 weeks: None Family Hx:: Cancer, Coronary Artery Disease, Diabetes, Heart Attack, Hyperlipidemia, Hypertension, Stroke, Tuberculosis, Alcoholism Review of Systems - Review of Systems Review of systems:: pertinent systems reviewed and negative unless documented below - Constitutional Reports weakness, Denies fever(s) - Eyes Denies change in vision - ENT Denies dizziness - *Cardiovascular Reports shortness of breath, Reports leg swelling, Reports lightheadedness, Denies chest pain at rest - *Respiratory Denies cough - *Gastrointestinal Denies abdominal pain - *Genitourinary Denies blood in urine - *Musculoskeletal Denies joint pain - Integumentary/Breasts Denies rash - *Neurologic Denies headache(s), Denies seizure-like activity - Psychiatric Denies confusion, Denies hopelessness Meds Home Medications Medication Instructions Recorded Confirmed Type albuterol sulfate 90 mcg/actuation 2 puff IH Q6HP PRN 06/04/19 02/29/20 History aerosol inhaler glipizide 5 mg tablet 5 mg PO DAILY 06/04/19 02/29/20 History metformin 1,000 mg tablet,extended 1,000 mg PO DAILY 06/04/19 02/29/20 History release 24hr aspirin 81 mg tablet,delayed 81 mg PO DAILY 07/31/19 02/29/20 History release Apixaban [Eliquis] 5 mg PO BID 08/20/19 02/29/20 History potassium chloride 20 mEq 20 meq PO DAILY #30 tab 08/26/19 02/29/20 Rx tablet,extended release sacubitril 24 mg-valsartan 26 mg 1 tab PO BID #60 tab 08/31/19 02/29/20 Rx tablet Fluticasone Propionate [Flonase 1 spr NS DAILY 12/02/19 02/29/20 History 50mcg nasal spray 16gm] Montelukast Sodium 10 mg PO HS 12/02/19 02/29/20 History amiodarone 200 mg tablet 200 mg PO BID #60 tab 12/07/19 02/29/20 Rx cholecalciferol (vitamin D3) 1,250 1,250 mcg PO WEEKLY #4 cap 12/14/19 02/29/20 Rx mcg (50,000 unit) capsule furosemide 40 mg tablet 40 mg PO DAILY #90 tab 12/14/19 02/29/20 Rx Acetaminophen 1,000 mg PO TID PRN #60 tab 12/27/19 02/29/20 Rx diphenhydrAMINE HCL [Benadryl] 25 mg PO Q6H PRN #30 cap 12/27/19 02/29/20 Rx buspirone 10 mg tablet 10 mg PO BID #60 tab 02/10/20 02/29/20 Rx citalopram 20 mg tablet 20 mg PO DAILY #30 tab 02/10/20 02/29/20 Rx prazosin 1 mg capsule 1 mg PO HS #30 cap 02/10/20 02/29/20 Rx Famotidine [Pepcid 20mg Tablet] 20 mg PO BID 02/29/20 02/29/20 History Guaifenesin/Dextromethorphan 1 tab PO Q12H 02/29/20 02/29/20 History [Guaifenesin-Dm ER 1,200-60 mg] Metoprolol Succinate 50 mg PO DAILY 02/29/20 02/29/20 History levETIRAcetam [Levetiracetam] 500 mg PO BID 02/29/20 02/29/20 History Allergies Allergy/AdvReac Type Severity Lety
[2020-02-29 19:19] LABS: Troponin I < 0.01 ng/ml (0.00-0.034)
--- NOTE | 2020-02-29 19:40 | PC.NURSE ---
PT IN SHOWER AT THIS TIME.
--- NOTE | 2020-02-29 20:25 | PC.NURSE ---
PT ASSESSED AT THIS TIME. BILATERAL LUNG SOUNDS CLEAR. C/O SOME UPPER LEG CRAMPS. EDEMA NOT TO BLE +2 PITTING. PT HAS RASH UNDER BREASTS. DENIES ANY FURTHER NEEDS AT THIS TIME WILL CONTINUE TO OBSERVE.
[2020-02-29 20:44] LABS: POC Glucose,Bedside 220 (70-110)
--- NOTE | 2020-02-29 21:00 | INFXCTL.NOTE ---
PT C/O OF SOME MILD CHEST PAIN AT THIS TIME THAT LASTED FOR 5-10 SECONDS. NO CHANGES NOTED. WILL CONTINUE TO OBSERVE.
--- NOTE | 2020-02-29 21:10 | PC.NURSE ---
PT C/O OF SOME MILD CHEST PAIN AT THIS TIME THAT LASTED 5-10 SECONDS. VSS. WILL CONTINUE TO OBSERVE.
--- NOTE | 2020-02-29 21:36 | PC.NURSE ---
PT ASSISTED TO BR AT THIS TIME VIA STANDBY ASSIST. PT TOLERATED WELL. WAS ABLE TO VOID LARGE AMOUNT OF CLEAR YELLOW URINE AT THIS TIME.
[2020-02-29 22:30] LABS: Troponin I 0.01 ng/ml (0.00-0.034)
[2020-03-01] VITALS: BP 118/66; PULSE 60; RESP 18; TEMP 36.5; O2SAT 94
[2020-03-01 04:00] VITALS: BP 114/54; PULSE 60; PULSE 62; RESP 20; TEMP 36.9; O2SAT 95
[2020-03-01 05:19] VITALS: BMI 43.2
--- NOTE | 2020-03-01 06:17 | PC.NURSE ---
DOUG LAUREN NOTIFIED OF CONSULT.
[2020-03-01 06:20] LABS: Basophils # 0.1 K/mm3 (0-0.2); Basophils % 1.3 % (0.1-2.0); Eosinophils # 0.2 K/mm3 (0.0-0.4); Eosinophils % 2.9 % (0.1-12.0); Hematocrit 38.1 % (37.0-47.0); Hemoglobin 12.7 g/dL (12.2-16.2); Lymphocytes # 2.3 K/mm3 (0.7-4.5); Lymphocytes % 30.6 % (10-50); Mean Corpuscular HGB Conc 33.3 g/dL (31.8-35.4); Mean Corpuscular Hemoglobin 31.2 pg (27.0-31.2); Mean Corpuscular Volume 93.7 fl (81-99); Monocytes # 0.7 K/mm3 (0.1-1.0); Monocytes % 8.8 % (1.7-9.3); Neutrophils # 4.3 K/mm3 (1.8-7.8); Neutrophils % 56.4 % (37.0-80.0); Platelet Count 211 K/mm3 (142-424); Red Blood Count 4.06 M/mm3 (4.20-5.40); Red Cell Distribution Width 13.5 % (11.5-17.5); White Blood Count 7.5 K/mm3 (4.8-10.8)
[2020-03-01 06:25] LABS: POC Glucose,Bedside 183 (70-110)
[2020-03-01 06:32] LABS: Chloride 98 mmol/L (98-107); Sodium 138 mmol/L (136-145)
[2020-03-01 06:34] LABS: Blood Urea Nitrogen 11 mg/dl (7-17); Creatinine Clearance Estimated 80 mL/min (50-200); Estimated Glomerular Filt Rate 85 ml/min (>60); GFR (African American) 103 ML/MIN (>60)
[2020-03-01 06:35] LABS: Anion Gap 4.9 mEq/L (5-15); Calcium 8.2 mg/dl (8.4-10.2); Carbon Dioxide 38 mmol/L (22.0-30.0); Glucose 184 mg/dl (74-100); Magnesium 1.3 mg/dl (1.6-2.3)
--- NOTE | 2020-03-01 06:45 | PC.NURSE ---
ULTRASOUND AT BEDSIDE PERFORMING ECHO
[2020-03-01 07:08] LABS: Potassium 2.9 mmoL/L (3.5-5.1)
--- NOTE | 2020-03-01 07:08 | PC.NURSE ---
[facility]9 LAB CALLED AT THIS TIME.
--- NOTE | 2020-03-01 07:09 | PC.NURSE ---
MESSAGE LEFT WITH ED STAFF DWIGHT ARNETT RN ABOUT CRITICAL K+ WILL GIVE TO DR. PALMA.
--- NOTE | 2020-03-01 07:15 | PC.NURSE ---
REPORT GIVEN TO Izaiah BOLIVAR RN.
--- NOTE | 2020-03-01 07:27 | HMH.CNCARD ---
History of Present Illness Consult date: 03/01/20 Requesting physician: Rudolph Conrad Chief complaint: Lightheadedness, weakness, near syncope symptoms Additional Medical History:: 1. [employer] biventricular pacemaker placed 07/30/2018, Dr. Deandre Jenkins, [place], [place], 4 nonischemic cardiomyopathy, LBBB and symptomatic sinus bradycardia 2. Nonischemic cardiomyopathy, near normal coronary arteries (10-20% RCA stenosis) by cath 07/28/2018, [place], [place] A. Left heart catheterization, 07/2019, normal coronary arteries. Performed due to abnormal lexiscan myoview showing apical septal infarct and inferior ischemia. B. admission for CHF, 07/2019 C. Echo, 11/2019, EF 40-45% with mild asymmetric LVH, akinesis of inferolateral and inferior wall with moderate lateral wall hypokinesis. RVSP is 40-50 mm Hg. 3. Hyperlipidemia 4. Remote tobacco use history A. COPD 5. Diabetes mellitus type 2 6. Hypertension 7. Atrial fibrillation, on Eliquis therapy since 08/14/2019 A. Amiodarone and toprol therapy recently started, 08/14/2019, with plans for DANIS cardioversion on 08/20/2019 as an outpatient B. Cardioversion, 07/2019, successful to NSR. 8. Obstructive sleep apnea, on trial of CPAP 9. seizure disorder, on Keppra, followed by Dr. Cisneros A. EEG and CT of head, 11/2019, negative History of present illness: 59-year-old white female with past medical history as noted above presented to the emergency department by private vehicle for evaluation of lightheadedness and not feeling well. Patient relates the night prior she had been up having some episodes of vomiting followed by diarrhea. Symptoms resolved and patient was able to return to sleep. Yesterday while at [facility] she began feeling lightheaded and dizzy but denies any passing out or seizure-like activity. Due to her symptoms and recent history of presumed seizure activity for which she has been started on Keppra, EMS was called for evaluation. Upon learning that she would be transferred to [facility] patient declined further evaluation or transport and instead came by [facility] in [facility]. Patient relates sensation of palpitations while at [facility]. Evaluation of her pacemaker shows no significant arrhythmias noted during that time. She was noted to have some far field sensing which will be corrected with reprogramming. Patient was noted to have evidence of increased fluid retention. This coincides with patient's noticed that her legs are swelling. Upon further evaluation she has been eating more bologna and drinking Andie 8. Patient does feel better after having Lasix yesterday. She denies any chest pressure or tightness. She does note some occasional brief chest discomfort around her pacemaker that is somewhat reproducible with palpation. Patient relates being exposed to people with virus-like illness recently. Her COVID test in the ER yesterday was negative. Despite her elevated BNP her chest x-ray shows no evidence of congestive heart failure. [facility] History Medical History: Reports:: Arrhythmia, Atrial Fibrillation, Congestive Heart Failure, Chronic Obstructive Pulmonary Disease (COPD), Diabetes Mellitus Type 2, Gastroesophageal Reflux Disease(GERD), Heart Murmur, Hyperlipidemia, Hypertension, Internal Pacemaker, Myocardial Infarction, Palpitations Denies:: Cancer, Diabetes Mellitus Type 1, MRSA, Seizures *Have you ever received a pneumonia vaccine?: Yes *Have you received a flu vaccine this season?: Yes Other Medical History: Reports: Anemia, Arthritis, Fibromyalgia, Sinus Problems Other Surgeries: Yes: Cardiac Catheterization, Cholecystectomy, Colonoscopy, Pacemaker, Sinus Surgery, Tubal Ligation Amputation: No Fractures: No - *Social History Educational Level: Attended College Smoking Status: Former smoker Tobacco Type: cigarettes # Packs/Day (ciga
[2020-03-01 08:00] VITALS: BP 154/78; PULSE 60; PULSE 65; RESP 18; TEMP 36.4; O2SAT 92
--- NOTE | 2020-03-01 08:00 | CA_ITS ---
APPROVED REPORT EXAM: Comprehensive 2D, Doppler, and color-flow Echocardiogram Certified Legal Investigator: Sheri Parada RDCS Ht: 5 ft 6 in Wt: 266lbs BSA: 2.26 BP: 110/70 mmHg Indications: SOA,COPD,CAD,H/O AF,PP 2D Dimensions LVOT 1.77 cm (M/F) 1.5-2.5 M-Mode Dimensions RVDd 2.29 cm (0.9-2.6) LVDd 5.57 cm (3.5-5.7) LVDs 4.50 cm (3.5-5.7) IVSd 0.93 cm (0.6-1.1) PWd 1.02 cm (0.6-1.1) EF (Teich) 39.10% FS 19.20% EDV (Teich) 151.80 mL ESV (Teich) 92.40 mL LV Diastology E/A Ratio 1.02 Mitral Valve MV A Velocity 74.00 (40-130 cm/s) Left Ventricle Left atrium is moderately enlarged, left ventricle is normal size, mild concentric left ventricular hypertrophy, visually estimated ejection fraction 55% with no regional wall motion abnormality. Grade 2 diastolic dysfunction seen with tissue Doppler evidence of raise left atrial pressure. Right Ventricle Right atrium and right ventricle mildly enlarged and normal contractility. Aortic Valve Aortic valve is minimally thickened and fibrosed, there is no aortic stenosis or aortic insufficiency. Mitral Valve Mitral valve is grossly normal, there is mild mitral regurgitation. Tricuspid Valve Tricuspid valve is minimally thickened, there is mild tricuspid regurgitation, tricuspid regurgitation jet velocity is inadequate for calculation of the right ventricular systolic pressure. Pulmonic Valve Pulmonic valve is poorly visualized. Great Vessels Aortic root is normal size. Pericardium No significant pericardial effusion noted. Conclusion 1. Moderately enlarged left atrium, normal left ventricular size, mild concentric left ventricular hypertrophy, visually estimated ejection fraction 55% with no regional wall motion abnormality, grade 2 diastolic dysfunction seen with tissue Doppler evidence of raise left atrial pressure. 2. Mildly enlarged right ventricle with normal contractility. 3. Mild mitral and tricuspid regurgitation. 4. No significant pericardial effusion noted. Electronically signed by : Demarco Kate, 03/01/2020 18:30:53
--- NOTE | 2020-03-01 09:12 | HMH.DCSUM ---
General - General Admission date:: 02/29/20 Discharge date: 03/01/20 HPI HPI: this pt presented to the ed -pt has 3 episodes of palpitations and near syncope and has no chest pain but feels sob and increasing lower ext edema Hospital Course Hospital Course: 59-year-old white female with past medical history as noted above presented to the emergency department by private vehicle for evaluation of lightheadedness and not feeling well. Patient relates the night prior she had been up having some episodes of vomiting followed by diarrhea. Symptoms resolved and patient was able to return to sleep. Yesterday while at [facility] she began feeling lightheaded and dizzy but denies any passing out or seizure-like activity. Due to her symptoms and recent history of presumed seizure activity for which she has been started on Keppra, EMS was called for evaluation. Upon learning that she would be transferred to [facility] patient declined further evaluation or transport and instead came by private vehicle to [facility] for evaluation in the ER. Patient relates sensation of palpitations while at [facility]. Evaluation of her pacemaker shows no significant arrhythmias noted during that time. She was noted to have some far field sensing which will be corrected with reprogramming. Patient was noted to have evidence of increased fluid retention. This coincides with patient's noticed that her legs are swelling. Upon further evaluation she has been eating more bologna and drinking Andie 8. Patient does feel better after having Lasix yesterday. She denies any chest pressure or tightness. She does note some occasional brief chest discomfort around her pacemaker that is somewhat reproducible with palpation. Patient relates being exposed to people with virus-like illness recently. Her COVID test in the ER yesterday was negative. Despite her elevated BNP her chest x-ray shows no evidence of congestive heart failure (Per Claire CAMACHO) 02/29/20 CXR: IMPRESSION: Mild cardiomegaly with pacemaker present, no change with no acute finding Dictated by: Dr. Duran, Cardiology has seen and recommends: 1. Lightheadedness, weakness and near syncope symptoms without arrhythmic etiology. Likely related to GI illness with feeling of getting sick again while at [facility] which probably caused drop in BP and lightheadedness. Preliminary echocardiogram today shows ejection fraction in the 40-45% range consistent with echocardiogram 3 months ago. No need for upgrade of pacemaker to defibrillator at this time. 2. History of normal coronary arteries by cardiac catheterization 07/2019. Troponins negative this admission. Continue aspirin therapy. 3. Nonischemic cardiomyopathy with biventricular pacemaker in place. Continue Entresto, metoprolol and Lasix. 4. Hypokalemia, likely related to GI illness and IV lasix in ER. Potassium replacement as ordered. Will not require potassium after discharge. 5. Hypomagnesemia, IV magnesium has been ordered 6. History of paroxysmal atrial fibrillation, maintaining sinus rhythm. Continue amiodarone and Eliquis therapy. 7. Chronic systolic congestive heart failure with recent exacerbation due to dietary indiscretion. Patient needs to do discontinue sodas and preserved meats as well as preserved foods and fast foods. 8. Diabetes mellitus, on glipizide and metformin. 9. GI illness, COVID 19 negative. Patient could be discharged home later today with follow-up in our office in 1 to 2 weeks. Potassium 2.9, magnesium 1.3. Both be replaced and she will be discharged home per infusion. Follow-up in cardiology 1 to 2 weeks follow-up in primary care provider in 2 weeks. Dietary instructions provided and alternatives discussed, patient verbalizes understanding. Objective Vital signs: Temp Pulse Resp BP Pulse Ox 97.6 F 65 18 154/78 H 92 L 03/01/20 08:00 03/01/20 08:00 03/01/20 08:00 03/01/20 08:00
--- NOTE | 2020-03-01 09:45 | HMH.PHAINT ---
HOME MEDICATION RECONCILIATION COMPLETED USING LIST FROM PHARMACY AND CARDIOLOGY OFFICE
--- NOTE | 2020-03-01 09:53 | P.CONPHA_ITS ---
[facility] Pharmacy VTE Monitoring - Patient Demographics Admission date: 02/29/20 Report Date: 03/01/20 Time: 09:54 Allergies/Adverse Reactions: Patient Allergies morphine Allergy (Mild, Verified 01/11/20 14:54) Unknown allergy reaction tramadol Allergy (Mild, Verified 01/11/20 14:54) Nausea Height: 1.68 m Weight: 122.101 kg Patient Problems: Current Active Problems Obesity (Acute) Near syncope (Acute) Elevated brain natriuretic peptide (BNP) level (Acute) Congestive heart failure (Acute) Diabetes mellitus (Chronic) Biventricular cardiac pacemaker in situ (Chronic) - VTE Risk Labs: VTE Related Lab Results Hgb 12.7 g/dL (12.2-16.2) 03/01/20 05:39 Hct 38.1 % (37.0-47.0) 03/01/20 05:39 Plt Count 211 K/mm3 (142-424) 03/01/20 05:39 BUN 11 mg/dl (7-17) 03/01/20 05:39 Creatinine 0.70 mg/dl (0.52-1.04) 03/01/20 05:39 Estimated Creat Clear 80 mL/min (50-200) 03/01/20 05:39 Was VTE Risk Assessment Performed: Yes VTE Score: 7 VTE Risk Level: Moderate Risk Clinical Trial Participant: No - Prophylaxis VTE Prophylaxis Ordered?: Yes Types of VTE Prophylaxis: TEDS Knee High
[2020-03-01 11:09] LABS: POC Glucose,Bedside 163 (70-110)
[2020-03-01 11:44] VITALS: BP 162/85; PULSE 62; RESP 18; TEMP 36.5; O2SAT 94
[2020-03-01 12:00] VITALS: PULSE 60
== END 2020-03-01 15:40 | disposition home or self-care (01) ==
LOC: ER 16:21 → 2ND 16:48
PROVIDERS: Admitting Provider Emergency Medicine; Emergency Provider Emergency Medicine; PCP Emergency Medicine; Visit Provider Emergency Medicine
DX: R55 Syncope and collapse (principal); I11.0 Hypertensive heart disease with heart failure; I50.22 Chronic systolic (congestive) heart failure; Z68.41 Body mass index [BMI] 40.0-44.9, adult; E66.09 Other obesity due to excess calories; I48.91 Unspecified atrial fibrillation; E11.9 Type 2 diabetes mellitus without complications; Z95.810 Presence of automatic (implantable) cardiac defibrillator; J44.9 Chronic obstructive pulmonary disease, unspecified; Z87.891 Personal history of nicotine dependence; I25.2 Old myocardial infarction; I25.5 Ischemic cardiomyopathy; Z79.84 Long term (current) use of oral hypoglycemic drugs; Z79.82 Long term (current) use of aspirin; Z79.51 Long term (current) use of inhaled steroids; Z79.899 Other long term (current) drug therapy; Z88.5 Allergy status to narcotic agent
CPT/HCPCS: 36415; 71045; 80048; 80076; 82962; 83735; 83880; 84436; 84443; 84484; 85025; 86328; 93005; 93306; 96374; 99284; G0378

== ENCOUNTER 2020-03-10 17:22 | Emergency (ER) | payer MEDICARE, OTHER, SELFPAY ==
[2020-03-10 17:31] VITALS: BP 138/100; PULSE 60; RESP 15; TEMP 36.6; O2SAT 95; BMI 40.3
[2020-03-10 17:42] VITALS: BP 100/63; PULSE 60; RESP 22; TEMP 36.7; O2SAT 96; BMI 41.5
--- NOTE | 2020-03-10 17:46 | XR_ITS ---
PROCEDURE: XR FOOT RT MIN 3V CLINICAL INDICATION: INJURY Pain redness and bruising and swelling COMPARISON: XR FOOT LT MIN 3V from 01/03/2020 FINDINGS: Hallux valgus with osteoarthritis of the 1st MTP joint and bunion formation at the distal aspect of the 1st metatarsal. The joint spaces are well-preserved. No significant degenerative/arthritic changes. No erosive changes evident. Other findings:Soft tissue swelling is present along the dorsal aspect of the foot. There is a mildly prominent calcaneal spur and there are osteoarthritic changes of the talonavicular joint IMPRESSION: Chronic changes with mild soft tissue swelling Dictated by: Loc Duran MD 03/10/2020 18:38 Electronically signed by Loc Duran MD in [place] 03/10/2020 18:38
[2020-03-10 18:21] LABS: Basophils # 0.1 K/mm3 (0-0.2); Basophils % 0.5 % (0.1-2.0); Eosinophils # 0.3 K/mm3 (0.0-0.4); Eosinophils % 2.8 % (0.1-12.0); Hematocrit 38.3 % (37.0-47.0); Hemoglobin 13.1 g/dL (12.2-16.2); Lymphocytes # 2.5 K/mm3 (0.7-4.5); Lymphocytes % 22.8 % (10-50); Mean Corpuscular HGB Conc 34.2 g/dL (31.8-35.4); Mean Corpuscular Hemoglobin 31.4 pg (27.0-31.2); Mean Corpuscular Volume 91.9 fl (81-99); Mean Platelet Volume 8.9 fl (7.4-10.4); Monocytes # 0.8 K/mm3 (0.1-1.0); Monocytes % 6.8 % (1.7-9.3); Neutrophils # 7.4 K/mm3 (1.8-7.8); Neutrophils % 67.2 % (37.0-80.0); Platelet Count 228 K/mm3 (142-424); Red Blood Count 4.17 M/mm3 (4.20-5.40); Red Cell Distribution Width 13.1 % (11.5-17.5)
--- NOTE | 2020-03-10 18:28 | HMH.EDUTC ---
[facility] Disposition Clinical Impression: Diabetic foot infection Disposition: Home, Self-Care Condition on Discharge: Good Instructions: Diabetic Foot Ulcer, Diabetes and Foot Care Additional Instructions: Rest the extremity, Elevate the extremity as tolerated while you are resting. Take ibuprofen or tylenol for pain Follow up with Dr. Davidson. I put in a referral but you need to call her office and schedule an appointment. Follow up with your regular doctor. GO TO THE ER FOR ANY WORSENING SYMPTOMS The triamcinolone cream is for itching at the site. Don't apply it unless it is itching. Prescriptions: Sulfamethoxazole/Trimethoprim [Bactrim DS tablet] 1 each PO BID 10 Days #20 tab Transmission Status: Received by [id number] Mupirocin [Bactroban 2% Ointment 22gm tube] 1 applicatio TP TID 7 Days #1 tube Transmission Status: Received by [id number] cephALEXin [Keflex 500mg Cap] 500 mg PO Q6H 10 Days #40 cap Transmission Status: Received by [id number] Triamcinolone Acetonide 1 applicatio TP TIDP PRN 7 Days #1 tube PRN Reason: Itching Transmission Status: Received by [id number] Referrals: Rudolph Conrad MD [Primary Care Provider] - Annette Davidson DPM [Staff Physician] - Time of Disposition: 18:37 Medical Decision Making - Medical Records Medical records reviewed: No: I reviewed the patient's medical records. - Feliberto Inquiry Pt receiving controlled substance: No Vital Signs: 03/10/20 17:31 03/10/20 17:42 03/10/20 18:43 Temperature 98 F 98.0 F 98.0 F Temperature Source Oral Oral Pulse Rate 60 Pulse Rate [Right] 60 60 Respiratory Rate 15 22 22 Blood Pressure 100/63 L Blood Pressure [Right Arm] 138/100 H 100/63 L Blood Pressure Mean [Right Arm] 112 75 Blood Pressure Source [Right Arm] Automatic Cuff Blood Pressure Position [Right Arm] Sitting 02 Sat by Pulse Oximetry 95 96 Oxygen Delivery Method Room Air - Lab Data Lab results reviewed: Yes: I reviewed the patient's lab results. Lab Results 03/10/20 18:05: WBC 11.0 H, RBC 4.17 L, Hgb 13.1, Hct 38.3, MCV 91.9, MCH 31.4 H, MCHC 34.2, RDW 13.1, Plt Count 228, MPV 8.9, Neut % (Auto) 67.2, Lymph % (Auto) 22.8, Morgan % (Auto) 6.8, Eos % (Auto) 2.8, Baso % (Auto) 0.5, Neut # (Auto) 7.4, Lymph # (Auto) 2.5, Morgan # (Auto) 0.8, Eos # (Auto) 0.3, Baso # (Auto) 0.1 Result diagrams: 03/10/20 18:05 Orders (Tests/Meds): ED MEDICATIONS Discontinued Medications Generic Name Dose Route Start Last Admin Trade Name Jason PRN Reason Stop Dose Admin Ceftriaxone Sodium 1 gm 03/10/20 18:25 03/10/20 18:33 Rocephin 1gm Vial IM 03/10/20 18:26 1 gm ONCE ONE Administration Protocol Lidocaine HCl 0 ml 03/10/20 18:25 03/10/20 18:33 Lidocaine 1% 10ml Mdv IM 03/10/20 18:26 2.1 ml ONCE ONE Administration [facility] HPI - General Stated complaint: Big toe black with a blister, patient is diabetic Time Seen by Provider: 03/10/20 17:35 Mode of Arrival: Ambulatory Source of Information: Patient Limitations: No Limitations Description of Symptoms (Recalled from Triage Doc. by RN): PATIENT C/O PAIN, SWELLING, BRUISING AND REDNESS WITH BLISTER TO RIGHT GREAT TOE SINCE YESTERDAY. NO KNOWN INJURY HEENT Symptoms (Recalled from RN notes): No Resp Symptoms (Recalled from RN notes): No Skin Symptoms (Recalled from RN notes): Yes MS Symptoms (Recalled from RN notes): Yes Functional Status (Recalled from RN notes): WNL - History of Present Illness Provider Complaint: She states that since yesterday, she has had a red area at the base of her left great toe and a blood filled blister. The red area has grown some since yesterday. She is diabetic. She denies any known injury or insect sting or bite. - Related Data Home Medications Medication Instructions Recorded Confirmed albuterol sulfate 90 mcg/actuation 2 puff IH Q6HP PRN 06/04/19 02/29/20 aerosol inhaler glipi
[2020-03-10 18:43] VITALS: BP 100/63; PULSE 60; RESP 22; TEMP 36.7; O2SAT 96
== END 2020-03-10 18:45 | disposition home or self-care (01) ==
LOC: ER 17:32 → UTC 17:32
PROVIDERS: Emergency Provider Nurse Practitioner Family; PCP Emergency Medicine
DX: E11.621 Type 2 diabetes mellitus with foot ulcer (principal); L97.511 Non-pressure chronic ulcer of other part of right foot limited to breakdown of skin; Z79.84 Long term (current) use of oral hypoglycemic drugs; I48.20 Chronic atrial fibrillation, unspecified; Z95.0 Presence of cardiac pacemaker; J44.9 Chronic obstructive pulmonary disease, unspecified; M79.7 Fibromyalgia; K21.9 Gastro-esophageal reflux disease without esophagitis; E78.5 Hyperlipidemia, unspecified; I10 Essential (primary) hypertension; I25.2 Old myocardial infarction; Z87.891 Personal history of nicotine dependence; Z79.899 Other long term (current) drug therapy
CPT/HCPCS: G0463; 73630; 85025; 96372; 99202

== ENCOUNTER → 2020-03-15 14:19 | Outpatient (CLI) | payer MEDICARE, OTHER, SELFPAY ==
--- NOTE | 2020-03-15 14:20 | US_ITS ---
APPROVED REPORT Exam Type: Ankle to Brachial Index Second Butler: Michelle Medina RT(R) Indications Non-healing Ulcer: Right History of Smoking right great toe non healing sore Risk Factors Hypertension Hyperlipidemia Obesity Cardiac Disease Diabetes Pressures/Indices Right Indices Left Indices Brachial 156.00 mmHg Brachial 155.00 mmHg Low Thigh 163.00 mmHg 1.04 Low Thigh 165.00 mmHg 1.06 Calf 152.00 mmHg 0.97 Calf 157.00 mmHg 1.01 Ankle(PT) 166.00 mmHg 1.06 Ankle(PT) 167.00 mmHg 1.07 Ankle(DP) 155.00 mmHg 0.99 Ankle(DP) 164.00 mmHg 1.05 Digit 159.00 mmHg 1.02 Digit 131.00 mmHg 0.84 Findings RT HORACE=1.1 LT HORACE=1.1 RT TBI=1.0 LT TBI=0.8 Normal pulses Normal waveforms Conclusion Normal appearing resting noninvasive lower extremity arterial study. Electronically signed by : Loc Duran MD 03/15/2020 17:25:22
--- NOTE | 2020-03-15 14:20 | CA_ITS ---
APPROVED REPORT Bilateral Lower Extremity Venous Study for DVT. Casting Machine Operator: YOANA Indications Lower Extremity Swelling: discoloration of right great toe Vein Imaging CFV (R): compressive, spontaneous, phasic, augmentation SFJ (R): compressive, spontaneous, phasic, augmentation FEM (R): compressive, spontaneous, phasic, augmentation POP (R): compressive, spontaneous, phasic, augmentation PTV (R): Compressible GSV (R): Compressible Peroneals (R):Not Visualized GAS (R): Compressible CFV (L): compressive, spontaneous, phasic, augmentation SFJ (L): compressive, spontaneous, phasic, augmentation FEM (L): compressive, spontaneous, phasic, augmentation POP (L): compressive, spontaneous, phasic, augmentation PTV (L): Compressible GSV (L): Compressible Peroneals (L):Not Visualized GAS (L): Compressible Findings No evidence of DVT or superficial thrombophlebitis in the veins scanned of the right lower extremity. No evidence of DVT or superficial thrombophlebitis in the veins scanned of the left lower extremity. Conclusion No evidence of DVT or superficial thrombophlebitis in the veins scanned of the right lower extremity. No evidence of DVT or superficial thrombophlebitis in the veins scanned of the left lower extremity. Electronically signed by : Loc Duran MD 03/15/2020 17:21:40
== END ==
PROVIDERS: PCP Emergency Medicine; Visit Provider Nurse Practitioner Family
DX: I73.9 Peripheral vascular disease, unspecified (principal); L81.9 Disorder of pigmentation, unspecified; L98.499 Non-pressure chronic ulcer of skin of other sites with unspecified severity; R07.9 Chest pain, unspecified; S91.101A Unspecified open wound of right great toe without damage to nail, initial encounter
CPT/HCPCS: 93923; 93970

== ENCOUNTER → 2020-03-28 12:35 | Outpatient (CLI) | payer MEDICARE, OTHER, SELFPAY ==
[2020-03-28 13:36] LABS: Basophils # 0.1 K/mm3 (0-0.2); Basophils % 0.8 % (0.1-2.0); Eosinophils # 0.2 K/mm3 (0.0-0.4); Eosinophils % 3.4 % (0.1-12.0); Hematocrit 38.4 % (37.0-47.0); Hemoglobin 12.9 g/dL (12.2-16.2); Lymphocytes % 30.7 % (10-50); Mean Corpuscular HGB Conc 33.6 g/dL (31.8-35.4); Mean Corpuscular Hemoglobin 31.5 pg (27.0-31.2); Mean Corpuscular Volume 93.8 fl (81-99); Mean Platelet Volume 8.4 fl (7.4-10.4); Monocytes # 0.4 K/mm3 (0.1-1.0); Monocytes % 6.2 % (1.7-9.3); Neutrophils # 3.9 K/mm3 (1.8-7.8); Neutrophils % 58.9 % (37.0-80.0); Platelet Count 234 K/mm3 (142-424); Red Blood Count 4.09 M/mm3 (4.20-5.40); White Blood Count 6.5 K/mm3 (4.8-10.8)
[2020-03-28 13:55] LABS: Hemoglobin A1C 8.1 % (4.0-6.0)
[2020-03-28 14:06] LABS: Erythrocyte Sedimentation Rate 26 mm/hr (0-30)
[2020-03-28 14:18] LABS: Chloride 103 mmol/L (98-107); Potassium 4.3 mmoL/L (3.5-5.1); Sodium 137 mmol/L (136-145)
[2020-03-28 14:20] LABS: Chol/HDL Ratio 3.6 (1-3.5); Cholesterol 189 mg/dl (140-200); HDL Cholesterol 52 mg/dl (40-60); Triglycerides 110 mg/dl (30-150); VLDL Cholesterol 22 mg/dL (0-40)
[2020-03-28 14:20] LABS: Alanine Aminotransferase 25 U/L (12-78); Aspartate Amino Transferase 27 U/L (14-36); Blood Urea Nitrogen 10 mg/dl (7-17); Estimated Glomerular Filt Rate 102 ml/min (>60); GFR (African American) 123 ML/MIN (>60)
[2020-03-28 14:21] LABS: Albumin Level 3.8 g/dl (3.5-5.0); Albumin/Globulin Ratio 1.2 (1.1-1.8); Alkaline Phosphatase 89 U/L (38-126); Anion Gap 9.3 mEq/L (5-15); Bilirubin,Total 0.6 mg/dl (0.2-1.3); Calcium 8.8 mg/dl (8.4-10.2); Carbon Dioxide 29 mmol/L (22.0-30.0); Globulin 3.1 g/dL (1.3-3.2); Glucose 127 mg/dl (74-100); Total Protein,Serum 6.9 g/dl (6.3-8.2)
[2020-03-28 14:32] LABS: Direct LDL Cholesterol 130.21 mg/dL (100-129)
[2020-03-28 14:32] LABS: C-Reactive Protein 6.9 mg/L (0-4)
[2020-03-28 14:37] LABS: T4 (Thyroxine) 10.6 ug/dl (5.53-11.0)
== END ==
PROVIDERS: Nurse Practitioner Family; Visit Provider Podiatrist
DX: E11.9 Type 2 diabetes mellitus without complications (principal); I50.20 Unspecified systolic (congestive) heart failure; R07.9 Chest pain, unspecified; Z51.89 Encounter for other specified aftercare; R56.9 Unspecified convulsions; E11.621 Type 2 diabetes mellitus with foot ulcer; L97.509 Non-pressure chronic ulcer of other part of unspecified foot with unspecified severity; Z79.84 Long term (current) use of oral hypoglycemic drugs
CPT/HCPCS: 80053; 80061; 83036; 84436; 84443; 85025; 85651; 86140

== ENCOUNTER 2020-04-16 17:02 | Emergency (ER) | payer MEDICARE, OTHER, SELFPAY ==
[2020-04-16 17:02] VITALS: BP 128/63; PULSE 60; RESP 20; TEMP 36.6; O2SAT 95; O2SAT 98; BMI 39.1; BMI 42.8
--- NOTE | 2020-04-16 17:04 | XR_ITS ---
PROCEDURE: XR CHEST PORTABLE Patient Age:59Y CLINICAL HISTORY: Chest Pain COMPARISON: No exams were available for comparison FINDINGS: Poor inspiration with diaphragm not quite down to the anterior 4th rib end on right. The Today's AP portable semi-erect CXR today is compared to 02/29/2020 CXR. Today's chest slightly rotated to the left.. Again see pacemaker overlying the left chest with associated multiple leads intact. Cardiomegaly is again noted with left ventricular configuration. Cardiomegaly is slightly more pronounced today. This is in part due to the less optimal inspiration. Again note that diaphragm is only down to the anterior 4th rib. This crowds and a accentuates markings including vascular markings as well as accentuates heart size. Also there is suggestion of mild additional vascular engorgement and congestion on today's study particularly here on the right today's study. Difficult to exclude mild CHF. No focal infiltrate or pneumonia. No pleural effusion but the maritza and mediastinal structures unchanged. Chest wall unremarkable. IMPRESSION: Cardiomegaly. Pacemaker Vascular engorgement versus prior studies-question mild vascular congestion particularly on right However poor inspiration on today's CXR crowds markings and accentuates vascularity as well as heart size. No focal infiltrate or pneumonia Dictated by: Ángel Anderson MD 04/17/2020 00:35 Electronically signed by Ángel Anderson MD in [place] 04/17/2020 00:35
--- NOTE | 2020-04-16 17:04 | ECG_ITS ---
APPROVED REPORT Exam: Resting ECG HR:66 bpm ECG Measurements Heart Rate 66 AXES DE 134 P -18 QRSd 144 QRS 103 QT 472 T -33 QTc 494 <Conclusion> Electronic atrial pacemaker Nonspecific intraventricular block Possible Right ventricular hypertrophy Lateral infarct, age undetermined Abnormal ECG Electronically signed by : Eric Oglesby, 04/17/2020 06:36:12
[2020-04-16 17:14] LABS: Basophils # 0.1 K/mm3 (0-0.2); Basophils % 0.6 % (0.1-2.0); Eosinophils # 0.2 K/mm3 (0.0-0.4); Eosinophils % 2.3 % (0.1-12.0); Hematocrit 36.2 % (37.0-47.0); Hemoglobin 12.3 g/dL (12.2-16.2); Lymphocytes # 2.1 K/mm3 (0.7-4.5); Lymphocytes % 24.1 % (10-50); Mean Corpuscular HGB Conc 33.9 g/dL (31.8-35.4); Mean Corpuscular Hemoglobin 31.6 pg (27.0-31.2); Mean Corpuscular Volume 93.3 fl (81-99); Mean Platelet Volume 8.7 fl (7.4-10.4); Monocytes # 0.6 K/mm3 (0.1-1.0); Monocytes % 6.4 % (1.7-9.3); Neutrophils # 5.9 K/mm3 (1.8-7.8); Neutrophils % 66.6 % (37.0-80.0); Platelet Count 251 K/mm3 (142-424); Red Blood Count 3.88 M/mm3 (4.20-5.40); Red Cell Distribution Width 13.2 % (11.5-17.5); White Blood Count 8.8 K/mm3 (4.8-10.8)
[2020-04-16 17:22] LABS: Anion Gap 9.7 mEq/L (5-15); Blood Urea Nitrogen 12 mg/dl (7-17); Calcium 9.2 mg/dl (8.4-10.2); Carbon Dioxide 34 mmol/L (22.0-30.0); Chloride 99 mmol/L (98-107); Creatinine Clearance Estimated 178 mL/min (50-200); Estimated Glomerular Filt Rate 102 ml/min (>60); GFR (African American) 123 ML/MIN (>60); Glucose 189 mg/dl (74-100); Potassium 3.7 mmoL/L (3.5-5.1); Sodium 139 mmol/L (136-145)
[2020-04-16 17:32] VITALS: BP 113/50; PULSE 60; RESP 20; O2SAT 98
[2020-04-16 17:35] LABS: Troponin I < 0.01 ng/ml (0.00-0.034)
[2020-04-16 18:16] LABS: NT Pro Brain Natriuretic Pep. 1060 pg/mL (0-125)
--- NOTE | 2020-04-16 18:36 | PC.NURSE ---
PT asks me to take down her family members number, Dena Parker [phone]. Pt gives verbal permission to talk to dena about her.
[2020-04-16 18:40] VITALS: BP 122/49; PULSE 61; RESP 20; O2SAT 94
[2020-04-16 19:57] VITALS: BP 128/75; PULSE 64; RESP 20; O2SAT 94
[2020-04-16 20:50] LABS: Troponin I < 0.01 ng/ml (0.00-0.034)
[2020-04-16 20:55] VITALS: BP 102/82; PULSE 66; RESP 20; O2SAT 93
--- NOTE | 2020-04-16 21:00 | HMH.EDEXTP ---
ED Disposition Clinical Impression: Biventricular cardiac pacemaker in situ, Elevated brain natriuretic peptide (BNP) level Chest pain Qualifiers: Chest pain type: precordial pain Qualified Code(s): R07.2 - Precordial pain Obesity Qualifiers: Obesity type: due to excess calories Obesity classification: adult class 3 (BMI >= 40) Serious obesity comorbidity presence: with serious comorbidity Body mass index: BMI 40.0-44.9 Qualified Code(s): E66.01 - Morbid (severe) obesity due to excess calories; Z68.41 - Body mass index (BMI) 40.0-44.9, adult Systolic CHF Qualifiers: Heart failure chronicity: acute on chronic Qualified Code(s): I50.23 - Acute on chronic systolic (congestive) heart failure Disposition: Home, Self-Care Condition on Discharge: Good Instructions: DI for Shortness of Breath Additional Instructions: see card at 09Saturday recheck if needed before Referrals: Rudolph Conrad MD [Primary Care Provider] - - Critical Care Critical Care Time: No Attestation: On 04/16/20, the high probability of a clinically significant, sudden or life threatening deterioration of the following system(s) required my full and direct attention, intervention and personal management. The time I documented below is in addition to time spent performing reported procedures but includes the following listed in this critical care notation. Medical Decision Making - Medical Records Medical records reviewed: Yes: I reviewed the patient's medical records. - Feliberto Inquiry Pt receiving controlled substance: No Vital Signs: 04/16/20 17:02 04/16/20 17:32 04/16/20 18:40 Temperature 98 F Temperature Source Oral Pulse Rate [Left Radial] 60 60 61 Respiratory Rate 20 20 20 Blood Pressure [Left Arm] 128/63 113/50 L 122/49 L Blood Pressure Mean [Left Arm] 84 71 73 Blood Pressure Source [Left Arm] Automatic Cuff Automatic Cuff Blood Pressure Position [Left Arm] Sitting Supine Supine 02 Sat by Pulse Oximetry 98 98 94 L Oxygen Delivery Method Room Air Room Air Room Air 04/16/20 19:57 04/16/20 20:55 Temperature Temperature Source Pulse Rate [Left Radial] 64 66 Respiratory Rate 20 20 Blood Pressure [Left Arm] 128/75 102/82 L Blood Pressure Mean [Left Arm] 92 88 Blood Pressure Source [Left Arm] Automatic Cuff Automatic Cuff Blood Pressure Position [Left Arm] Supine Supine 02 Sat by Pulse Oximetry 94 L 93 L Oxygen Delivery Method Room Air Room Air - Lab Data Lab results reviewed: Yes: I reviewed the patient's lab results. Lab Results 04/16/20 16:22: WBC 8.8, RBC 3.88 L, Hgb 12.3, Hct 36.2 L, MCV 93.3, MCH 31.6 H, MCHC 33.9, RDW 13.2, Plt Count 251, MPV 8.7, Neut % (Auto) 66.6, Lymph % (Auto) 24.1, [place] % (Auto) 6.4, Eos % (Auto) 2.3, Baso % (Auto) 0.6, Neut # (Auto) 5.9, Lymph # (Auto) 2.1, [place] # (Auto) 0.6, Eos # (Auto) 0.2, Baso # (Auto) 0.1 04/16/20 16:22: Sodium 139, Potassium 3.7, Chloride 99, Carbon Dioxide 34 H, Anion Gap 9.7, BUN 12, Creatinine 0.60, Estimated Creat Clear 178, Estimated GFR 102, Est GFR ( Amer) 123, Glucose 189 H, Calcium 9.2, Troponin I < 0.01 04/16/20 16:22: NT-Pro-B Natriuret Pep 1060 H 04/16/20 20:14: Troponin I < 0.01 Result diagrams: 04/16/20 16:22 04/16/20 16:22 Orders (Tests/Meds): ORDERS Category Date Time Status XR chest portable Stat Exams 04/16/20 17:04 Taken Troponin I Q3H Lab 04/16/20 23:15 Ordered - Radiology Data #1 Image(s): Chest Image Reviewed: Yes I reviewed the patient's radiology image Preliminary Findings: Abnormal (cm) - ECG Data Tracing #1 Normal Sinus Rhythm: Yes Ischemic changes: non-specific ST-T wave changes Conduction abnormalities present: other (pacemaker ) - NORMA Score for Non-Stemi Age of Patient: 60-69 years old Heart Rate: 50-69 bpm Systolic Blood Pressure: 120-139 mmhg Serum Creatinine: 0.80-1.19 mg/dl CHF Killip Class: II-Pulmonary Rales or Jug Other Risk Factors: None Non-Stemi Risk Score: 122 Ex
[2020-04-16 21:25] VITALS: BP 137/78; PULSE 65; RESP 20; TEMP 36.7; O2SAT 95
== END 2020-04-16 21:36 | disposition home or self-care (01) ==
PROVIDERS: Emergency Provider Emergency Medicine; PCP Emergency Medicine
DX: I50.23 Acute on chronic systolic (congestive) heart failure (principal); R79.89 Other specified abnormal findings of blood chemistry; J44.9 Chronic obstructive pulmonary disease, unspecified; E78.5 Hyperlipidemia, unspecified; I25.2 Old myocardial infarction; I48.91 Unspecified atrial fibrillation; K21.9 Gastro-esophageal reflux disease without esophagitis; I10 Essential (primary) hypertension; E11.65 Type 2 diabetes mellitus with hyperglycemia; Z79.84 Long term (current) use of oral hypoglycemic drugs; E66.01 Morbid (severe) obesity due to excess calories; Z68.41 Body mass index [BMI] 40.0-44.9, adult; Z95.0 Presence of cardiac pacemaker; Z79.899 Other long term (current) drug therapy
CPT/HCPCS: 71045; 80048; 83880; 84484; 85025; 93005; 96365; 96374; 96375; 99284

== ENCOUNTER → 2020-05-09 09:03 | Outpatient (CLI) | payer MEDICARE, OTHER, SELFPAY ==
[2020-05-09 09:46] LABS: Chloride 100 mmol/L (98-107); Potassium 4.3 mmoL/L (3.5-5.1); Sodium 139 mmol/L (136-145)
[2020-05-09 09:49] LABS: Anion Gap 12.3 mEq/L (5-15); Blood Urea Nitrogen 14 mg/dl (7-17); Calcium 9.2 mg/dl (8.4-10.2); Carbon Dioxide 31 mmol/L (22.0-30.0); Estimated Glomerular Filt Rate 85 ml/min (>60); GFR (African American) 103 ML/MIN (>60); Glucose 161 mg/dl (74-100)
== END ==
PROVIDERS: Visit Provider Urology
DX: E11.42 Type 2 diabetes mellitus with diabetic polyneuropathy (principal); E78.2 Mixed hyperlipidemia; I11.0 Hypertensive heart disease with heart failure; I25.5 Ischemic cardiomyopathy; I48.91 Unspecified atrial fibrillation; I50.9 Heart failure, unspecified; J44.1 Chronic obstructive pulmonary disease with (acute) exacerbation; R06.09 Other forms of dyspnea
CPT/HCPCS: 36415; 80048

== ENCOUNTER → 2020-05-18 07:46 | Outpatient (CLI) | payer MEDICARE, OTHER, SELFPAY ==
--- NOTE | 2020-05-18 07:46 | CT_ITS ---
PROCEDURE: CT CHEST WO CON CLINICAL INDICATION: Amiodarone use, SCHAFER Soa, high resolution? Pulmonary study COMPARISON: No exams were available for comparison TECHNIQUE: Axial images obtained with sagittal and coronal reformats. All CT scans at the facility use one or more dose reduction, viz: automated exposure control, ma/kV adjustment per patient size (including targeted exams where dose is matched to indication, i.e. head), or iterative reconstruction technique. FINDINGS: HEART AND MEDIASTINAL STRUCTURES: Artifact is present from cardiac pacemaker device from the left subclavian approach. Heart size is normal. No pericardial effusion. No mediastinal or hilar mass. There is a small hiatal hernia. There is a small hypodense nodule within the right lobe of the thyroid gland which measures 10 mm. LUNGS AND PLEURAL SPACES: Standard and high-resolution images are performed. No infiltrates or effusions. There is calcified granuloma in the left lower lobe anteriorly. A noncalcified nodules present in the extreme left lung base measuring 4 mm. There is a 3 mm noncalcified nodule in the left lower lobe laterally image 29 series 2. Calcified nodule superior segment left lower lobe. 2 mm noncalcified nodule right upper lobe image 16 series 2. 3 mm subpleural nodule right lower lobe posteriorly. 6 mm noncalcified nodule in the lingula. High-resolution images are obtained. There is some minimal linear density noted in the left upper lobe medially and in the lung bases suggesting minimal areas of fibrotic change or scarring. No interstitial changes are apparent. BONY STRUCTURES: Degenerative changes are present in the spine with kyphosis. UPPER ABDOMEN: Prior cholecystectomy. Small hiatal hernia. ADDITIONAL FINDINGS: No other significant abnormalities. IMPRESSION: 1. There are scattered noncalcified pulmonary nodules the largest of which is in the lingula measuring 6 mm. Suggest 6 month follow-up to confirm short term stability. 2. There are some minor atelectatic or fibrotic changes/scarring. Overall, the findings are not suspicious for amiodarone lung toxicity. Continued follow-up is suggested to confirm stability. Dictated by: Loc Duran MD 05/19/2020 09:53 Loc Duran MD in [place] 05/19/2020 09:53
== END ==
PROVIDERS: PCP Emergency Medicine; Visit Provider Physician Assistant
DX: R06.00 Dyspnea, unspecified (principal); Z79.899 Other long term (current) drug therapy
CPT/HCPCS: 71250

== ENCOUNTER → 2020-05-20 15:52 | Outpatient (CLI) | payer MEDICARE, OTHER, SELFPAY ==
[2020-05-22 09:41] LABS: Covid-19 Nasal PCR Sendout UK Not Detected
== END ==
PROVIDERS: PCP Nurse Practitioner Family; Visit Provider Nurse Practitioner Family
DX: Z03.818 Encounter for observation for suspected exposure to other biological agents ruled out (principal)
CPT/HCPCS: U0003

== ENCOUNTER → 2020-06-13 12:56 | Outpatient (CLI) | payer MEDICARE, OTHER, SELFPAY ==
[2020-06-13 13:49] LABS: Chloride 99 mmol/L (98-107)
[2020-06-13 13:50] LABS: Potassium 4.7 mmoL/L (3.5-5.1); Sodium 141 mmol/L (136-145)
[2020-06-13 13:52] LABS: Alanine Aminotransferase 22 U/L (12-78); Alkaline Phosphatase 97 U/L (38-126); Anion Gap 13.7 mEq/L (5-15); Aspartate Amino Transferase 24 U/L (14-36); Bilirubin,Indirect 0.4 mg/dL (0.0-0.9); Bilirubin,Total 0.4 mg/dl (0.2-1.3); Bilirubin,Unconjugated 0.4 mg/dL (0.0-1.1); Blood Urea Nitrogen 24 mg/dl (7-17); Calcium 9.6 mg/dl (8.4-10.2); Carbon Dioxide 33 mmol/L (22.0-30.0); Estimated Glomerular Filt Rate 64 ml/min (>60); GFR (African American) 77 ML/MIN (>60); Glucose 160 mg/dl (74-100)
[2020-06-13 13:53] LABS: Albumin Level 4.1 g/dl (3.5-5.0); Total Protein,Serum 7.4 g/dl (6.3-8.2)
[2020-06-13 14:10] LABS: Free Thyroxine Index 2.9 ug/dL (5.93-13.13); T4 (Thyroxine) 8.9 ug/dl (5.53-11.0); Triiodothryronine (T3) Uptake 33 % (23.5-40.5)
[2020-06-13 14:24] LABS: Thyroid Stimulating Hormone 4.34 uIU/mL (0.465-4.68)
[2020-06-19 14:03] LABS: 1,25 Dihydroxy Vitamin D 36 pg/mL (.); 1,25-Dihydroxy, Vitamin D-2 <10 pg/mL (.); 1,25-Dihydroxy, Vitamin D-3 36 pg/mL (.)
== END ==
PROVIDERS: Visit Provider Nurse Practitioner Family
DX: Z79.899 Other long term (current) drug therapy (principal); E11.42 Type 2 diabetes mellitus with diabetic polyneuropathy; E78.2 Mixed hyperlipidemia; I11.0 Hypertensive heart disease with heart failure; I25.5 Ischemic cardiomyopathy; I48.91 Unspecified atrial fibrillation; I50.9 Heart failure, unspecified; J44.1 Chronic obstructive pulmonary disease with (acute) exacerbation; R06.09 Other forms of dyspnea; R07.2 Precordial pain; R91.8 Other nonspecific abnormal finding of lung field
CPT/HCPCS: 36415; 80048; 80076; 82652; 84436; 84443; 84479

== ENCOUNTER 2020-07-12 13:41 | Emergency (ER) | payer MEDICARE, OTHER, SELFPAY ==
[2020-07-12 13:55] VITALS: BP 129/64; PULSE 60; RESP 18; TEMP 36.8; O2SAT 95; BMI 40.3
--- NOTE | 2020-07-12 14:01 | CT_ITS ---
PROCEDURE: CT HEAD/BRAIN WO CON CLINICAL INDICATION: Pain after falling Head injury with headache/pain, contusion, abrasion or hematoma COMPARISON: CT CT HEAD/BRAIN WO CON from 12/01/[address] ANGIO HEAD from 12/23/2019 TECHNIQUE: Axial images obtained. All CT scans at the facility use one or more dose reduction, viz: automated exposure control, ma/kV adjustment per patient size (including targeted exams where dose is matched to indication, i.e. head), or iterative reconstruction technique. FINDINGS: No midline shift, mass effect, intracranial hemorrhage, hydrocephalus, or extra-axial fluid collection is evident. There is generalized atrophy with hypoattenuation of the periventricular white matter consistent with microangiopathic changes. The calvarium has an unremarkable appearance. No mastoid effusion. Moderate amount of mucosal thickening involving the maxillary sinuses with an air-fluid level in the left maxillary sinus. 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 IMPRESSION: 1. No acute intracranial findings. 2. Paranasal sinus disease Dictated by: Loc Duran MD 07/12/2020 15:01 Loc Duran MD in [place] 07/12/2020 15:01
--- NOTE | 2020-07-12 14:02 | CT_ITS ---
PROCEDURE: CT CERVICAL SPINE WO CON CLINICAL INDICATION: Pain after falling Posttraumatic pain, Neck injury with pain, contusion/abrasion or hematoma, cervical sprain/strain the COMPARISON: No exams were available for comparison TECHNIQUE: Axial images obtained with sagittal and coronal reformats. All CT scans at the facility use one or more dose reduction, viz: automated exposure control, ma/kV adjustment per patient size (including targeted exams where dose is matched to indication, i.e. head), or iterative reconstruction technique. Axial spiral CT scanning performed of the cervical spine beginning at the base of the skull and continuing to the upper T-spine. 3-D multiplanar reconstruction with 3-D manipulation of volumetric data set in image rendering was completed by the radiologist and/or technologist with the supervision of the radiologist on independent workstation. FINDINGS: Osteoarthritic changes are present at the TMJs. There is normal alignment. No fracture or dislocation. There is degenerative disc disease C5-C6 C6-C7 and C7-T1.- There is some patchy ground-glass density in both upper lobes. The right side of thyroid gland is slightly prominent. IMPRESSION: 1. No acute fracture. 2. Mild degenerative changes. 3. Ground-glass opacity in both upper lobes which may be inflammatory or infectious. This could be seen with atypical pneumonia, viral pneumonia/Covid 19 pneumonia Dictated by: Loc Duran MD 07/12/2020 14:47 Loc Duran MD in [place] 07/12/2020 14:47
--- NOTE | 2020-07-12 14:03 | XR_ITS ---
PROCEDURE: XR SHOULDER LT MIN 2V CLINICAL INDICATION: Pain after falling Post-traumatic pain COMPARISON: CR XR SHOULDER LT MIN 2V from 11/12/2019 CR XR SHOULDER LT MIN 2V from 12/25/2019 FINDINGS: No fracture or dislocation. No lytic or blastic change. There is normal mineralization. There are mild osteoarthritic changes of the glenohumeral joint and acromioclavicular joint. Cardiac pacemaker device is present from left subclavian approach. Other findings:None. IMPRESSION: Mild osteoarthritis, no acute fracture Dictated by: Loc Duran MD 07/12/2020 15:08 Loc Duran MD in [place] 07/12/2020 15:08
--- NOTE | 2020-07-12 14:20 | HMH.EDGENADL ---
ED Disposition Clinical Impression: Scalp contusion Qualifiers: Encounter type: initial encounter Qualified Code(s): S00.03XA - Contusion of scalp, initial encounter Cervical strain Qualifiers: Encounter type: initial encounter Qualified Code(s): S16.1XXA - Strain of muscle, fascia and tendon at neck level, initial encounter Contusion of left shoulder Qualifiers: Encounter type: initial encounter Qualified Code(s): S40.012A - Contusion of left shoulder, initial encounter Disposition: Home, Self-Care Condition on Discharge: Good Instructions: DI for Closed Head Injury, DI for Neck Sprain, DI for Shoulder Pain Additional Instructions: Tylenol for pain. Follow-up with your primary care provider. Additional instructions for HEAD INJURY: See your physician as soon as possible for further evaluation. Return immediately if severe headache, vomiting, problems with vision or speech, numbness or weakness of the extremities, or severe neck pain. Referrals: Staci Riggins APRN [Primary Care Provider] - - Critical Care Critical Care Time: No Attestation: On 07/12/20, the high probability of a clinically significant, sudden or life threatening deterioration of the following system(s) required my full and direct attention, intervention and personal management. The time I documented below is in addition to time spent performing reported procedures but includes the following listed in this critical care notation. Medical Decision Making - Feliberto Inquiry Pt receiving controlled substance: No Vital Signs: 07/12/20 13:55 Temperature 98.3 F Temperature Source Oral Pulse Rate [Right Brachial] 60 Respiratory Rate 18 Blood Pressure [Right Arm] 129/64 Blood Pressure Mean [Right Arm] 85 Blood Pressure Source [Right Arm] Automatic Cuff Blood Pressure Position [Right Arm] Sitting 02 Sat by Pulse Oximetry 95 Oxygen Delivery Method Room Air Orders (Tests/Meds): ORDERS Category Date Time Status XR shoulder LT min 2V Stat Exams 07/12/20 14:03 Taken - Radiology Data #1 Image(s): Shoulder Image Reviewed: Yes I reviewed the patient's radiology image Preliminary Findings: Normal/NAD - CT Data CT Scan: Head, C-Spine Time Received: 15:[address] Reviewed: Yes: I have viewed the radiologist's interpretation Findings Narrative: PROCEDURE: CT CERVICAL SPINE WO CON CLINICAL INDICATION: Pain after falling Posttraumatic pain, Neck injury with pain, contusion/abrasion or hematoma, cervical sprain/strain the COMPARISON: No exams were available for comparison TECHNIQUE: Axial images obtained with sagittal and coronal reformats. All CT scans at the facility use one or more dose reduction, viz: automated exposure control, ma/kV adjustment per patient size (including targeted exams where dose is matched to indication, i.e. head), or iterative reconstruction technique. Axial spiral CT scanning performed of the cervical spine beginning at the base of the skull and continuing to the upper T-spine. 3-D multiplanar reconstruction with 3-D manipulation of volumetric data set in image rendering was completed by the radiologist and/or technologist with the supervision of the radiologist on independent workstation. FINDINGS: Osteoarthritic changes are present at the TMJs. There is normal alignment. No fracture or dislocation. There is degenerative disc disease C5-C6 C6-C7 and C7-T1.- There is some patchy ground-glass density in both upper lobes. The right side of thyroid gland is slightly prominent. IMPRESSION: 1. No acute fracture. 2. Mild degenerative changes. 3. Ground-glass opacity in both upper lobes which may be inflammatory or infectious. This could be seen with atypical pneumonia, viral pneumonia/Covid 19 pneumonia Dictated by: Loc Duran MD 07/12/2020 14:47 Loc Duran MD in [place] 07/12/2020 14:47 Medical Decision Narrative: Discussed CT cervical
[2020-07-12 16:00] VITALS: BP 114/60; PULSE 61; RESP 18; TEMP 36.8; O2SAT 96
== END 2020-07-12 16:10 | disposition home or self-care (01) ==
PROVIDERS: Emergency Provider Emergency Medicine; PCP Nurse Practitioner Family
DX: S00.03XA Contusion of scalp, initial encounter (principal); S16.1XXA Strain of muscle, fascia and tendon at neck level, initial encounter; S40.012A Contusion of left shoulder, initial encounter; V58.4XXA Person boarding or alighting a pick-up truck or van injured in noncollision transport accident, initial encounter; Y92.9 Unspecified place or not applicable; I48.20 Chronic atrial fibrillation, unspecified; E78.5 Hyperlipidemia, unspecified; I25.2 Old myocardial infarction; M79.7 Fibromyalgia; E11.9 Type 2 diabetes mellitus without complications; K21.9 Gastro-esophageal reflux disease without esophagitis; I10 Essential (primary) hypertension; Z95.0 Presence of cardiac pacemaker; F17.210 Nicotine dependence, cigarettes, uncomplicated; Z79.899 Other long term (current) drug therapy
CPT/HCPCS: 70450; 72125; 73030; 99282

== ENCOUNTER → 2020-07-22 09:29 | Outpatient (CLI) | payer MEDICARE, OTHER, SELFPAY ==
[2020-07-22 16:01] LABS: Coronavirus 19 IgG Antibody Negative (Negative); Coronavirus 19 IgM Antibody Negative (Negative)
== END ==
PROVIDERS: Visit Provider Nurse Practitioner Family
DX: Z03.818 Encounter for observation for suspected exposure to other biological agents ruled out (principal)
CPT/HCPCS: 36415; 86328

== ENCOUNTER 2020-08-04 09:48 | Outpatient (RCR) | payer MEDICARE, OTHER, SELFPAY | END 2020-08-04 11:00 | disposition home or self-care (01) | LOC: PT 09:48 | PROVIDERS: PCP Nurse Practitioner Family; Visit Provider Nurse Practitioner Family | DX: G89.29 Other chronic pain (principal); G62.9 Polyneuropathy, unspecified | CPT/HCPCS: 97542 ==

== ENCOUNTER → 2020-08-18 18:06 | Outpatient (CLI) | payer MEDICARE, OTHER, SELFPAY ==
[2020-08-18 18:32] LABS: Basophils # 0.1 K/mm3 (0-0.2); Basophils % 0.5 % (0.1-2.0); Eosinophils # 0.2 K/mm3 (0.0-0.4); Eosinophils % 2.1 % (0.1-12.0); Hematocrit 43.5 % (37.0-47.0); Hemoglobin 13.8 g/dL (12.2-16.2); Lymphocytes # 2.1 K/mm3 (0.7-4.5); Lymphocytes % 21.6 % (10-50); Mean Corpuscular HGB Conc 31.7 g/dL (31.8-35.4); Mean Corpuscular Hemoglobin 30.5 pg (27.0-31.2); Mean Corpuscular Volume 96.4 fl (81-99); Mean Platelet Volume 11.5 fl (7.4-10.4); Monocytes # 0.7 K/mm3 (0.1-1.0); Monocytes % 6.8 % (1.7-9.3); Neutrophils # 6.6 K/mm3 (1.8-7.8); Neutrophils % 68.9 % (37.0-80.0); Platelet Count 269 K/mm3 (142-424); Red Blood Count 4.51 M/mm3 (4.20-5.40); Red Cell Distribution Width 13.5 % (11.5-17.5); White Blood Count 9.5 K/mm3 (4.8-10.8)
[2020-08-18 18:59] LABS: Alanine Aminotransferase 27 U/L (12-78); Albumin Level 4.3 g/dl (3.5-5.0); Albumin/Globulin Ratio 1.3 (1.1-1.8); Alkaline Phosphatase 112 U/L (38-126); Anion Gap 14.8 mEq/L (5-15); Aspartate Amino Transferase 31 U/L (14-36); Bilirubin,Total 0.4 mg/dl (0.2-1.3); Blood Urea Nitrogen 24 mg/dl (7-17); Calcium 9.6 mg/dl (8.4-10.2); Carbon Dioxide 30 mmol/L (22.0-30.0); Chloride 96 mmol/L (98-107); Chol/HDL Ratio 3.6 (1-3.5); Cholesterol 171 mg/dl (140-200); Estimated Glomerular Filt Rate 56 ml/min (>60); GFR (African American) 68 ML/MIN (>60); Globulin 3.4 g/dL (1.3-3.2); Glucose 255 mg/dl (74-100); HDL Cholesterol 48 mg/dl (40-60); Potassium 4.8 mmoL/L (3.5-5.1); Sodium 136 mmol/L (136-145); Total Protein,Serum 7.7 g/dl (6.3-8.2); Triglycerides 134 mg/dl (30-150); VLDL Cholesterol 27 mg/dL (0-40)
[2020-08-18 19:11] LABS: Direct LDL Cholesterol 103.41 mg/dL (100-129)
[2020-08-18 19:18] LABS: T4 (Thyroxine) 9.4 ug/dl (5.53-11.0)
[2020-08-18 19:23] LABS: Hemoglobin A1C 8.2 % (4.0-6.0)
== END ==
PROVIDERS: Visit Provider Nurse Practitioner Family
DX: J44.9 Chronic obstructive pulmonary disease, unspecified (principal); E11.610 Type 2 diabetes mellitus with diabetic neuropathic arthropathy; I48.91 Unspecified atrial fibrillation; Z79.84 Long term (current) use of oral hypoglycemic drugs
CPT/HCPCS: 80053; 80061; 83036; 84436; 84443; 85025

== ENCOUNTER 2020-09-10 10:56 | Emergency (ER) | payer MEDICARE, OTHER, SELFPAY ==
[2020-09-10 11:14] VITALS: BP 122/56; PULSE 74; RESP 18; TEMP 37; O2SAT 97; BMI 40.3
--- NOTE | 2020-09-10 11:38 | HMH.EDUTC ---
[facility] [place] Clinical Impression: Nausea & vomiting Qualifiers: Vomiting type: unspecified Vomiting Intractability: unspecified Qualified Code(s): R11.2 - Nausea with vomiting, unspecified Disposition: Home, Self-Care Condition on Discharge: Good Instructions: DI for Nausea -- Adult, Nausea and Vomiting-Adult, Promethazine Additional Instructions: ? Avoid fruit juices, as these do not replace minerals and can actually increase diarrhea. ? Children and adults can use sports drinks to replenish electrolytes. Younger children and infants should use products formulated for children, like oral rehydration solutions. ? Eat food in small amounts and let your stomach recover. ? Get lots of rest. You may feel tired or weak. ? No greasy or fried foods for the next 24-48 hours BRAT diet Bananas Rice Apples and Coronita ? Make sure to drink plenty of liquids ? Return if needed ? Straight to ER if any life threatening symptoms You were tested for today for COVID19 your test result should be back in the next 24-48 hours, you may call to the [facility] to see if your test results are back in the next 48 hours [phone] [facility] hours are 9am-9pm You was given a handout with instructions for Self Quarantine and Self isolation for while you wait on test results and what to do if they are positive If you are positive the Health Dept will be contacting you also ? Follow up with family doctor in the next 48-72 hours if no improvement or any worsening of symptoms Prescriptions: Promethazine HCl [Phenergan 12.5mg tablet] 12.5 mg PO Q6H PRN #6 tab PRN Reason: Nausea Transmission Status: Pending to [facility] Referrals: Staci Riggins APRN [Primary Care Provider] - As needed Time of Disposition: 12:16 Medical Decision Making - Feliberto Inquiry Pt receiving controlled substance: No Feliberto was queried for this patient: No Vital Signs: 09/10/20 11:14 Temperature 98.6 F Temperature Source Oral Pulse Rate [Radial] 74 Respiratory Rate 18 Blood Pressure [Right Arm] 122/56 L Blood Pressure Mean [Right Arm] 78 Blood Pressure Source [Right Arm] Automatic Cuff Blood Pressure Position [Right Arm] Sitting 02 Sat by Pulse Oximetry 97 Oxygen Delivery Method Room Air Orders (Tests/Meds): ED MEDICATIONS Discontinued Medications Generic Name Dose Route Start Last Admin Trade Name Jason PRN Reason Stop Dose Admin Promethazine HCl 12.5 mg 09/10/20 11:44 09/10/20 11:51 Promethazine Hcl 12.5mg Tablet PO 09/10/20 11:45 12.5 mg ONCE ONE Administration ORDERS Category Date Time Status Covid-19 Nasal PCR Sendout [facility] Stat Lab 09/10/20 11:50 Received Medical Decision Narrative: No vomiting or diarrhea since arrival [facility] [place] - General Stated complaint: diarrhea, vomiting Time Seen by Provider: 09/10/20 11:38 Mode of Arrival: Ambulatory Source of Information: Patient Limitations: No Limitations Description of Symptoms (Recalled from Triage Doc. by RN): vomiting and diarrhea x 3 days HEENT Symptoms (Recalled from RN notes): No Resp Symptoms (Recalled from RN notes): No Skin Symptoms (Recalled from RN notes): No MS Symptoms (Recalled from RN notes): No Functional Status (Recalled from RN notes): wnl - History of Present Illness Provider Complaint: Patient states that she has been having nausea for several days States that she started having nausea and vomiting last night State that she has vomited several times today and was worried that if she doesnt get something for her nausea she would get dehydrated so she came in - Related Data Home Medications Medication Instructions Recorded Confirmed albuterol sulfate 90 mcg/actuation 2 puff IH Q6HP PRN 06/04/19 08/18/20 aerosol inhaler aspirin 81 mg tablet,delayed 81 mg PO DAILY 07/31/19 08/18/20 release Apixaban [Eliquis] 5 mg PO BID 08/20/19 08/18/20 Fluticasone Propionate [Flonase 1 spr NS DAILY 12/02/19 08/18/20 50mcg nasal spray 16gm] Montelukast Sodium
[2020-09-10 12:28] VITALS: BP 122/56; PULSE 74; RESP 18; TEMP 37; O2SAT 97
[2020-09-11 09:03] LABS: Covid-19 Nasal PCR Sendout UK Not Detected
== END 2020-09-10 12:29 | disposition home or self-care (01) ==
PROVIDERS: Emergency Provider Nurse Practitioner; PCP Nurse Practitioner Family
DX: Z20.828 Contact with and (suspected) exposure to other viral communicable diseases (principal); R11.2 Nausea with vomiting, unspecified; R19.7 Diarrhea, unspecified; E78.5 Hyperlipidemia, unspecified; I48.0 Paroxysmal atrial fibrillation; I50.9 Heart failure, unspecified; J44.9 Chronic obstructive pulmonary disease, unspecified; Z87.891 Personal history of nicotine dependence; I25.2 Old myocardial infarction; M79.7 Fibromyalgia; I10 Essential (primary) hypertension; E11.9 Type 2 diabetes mellitus without complications; K21.9 Gastro-esophageal reflux disease without esophagitis; Z95.0 Presence of cardiac pacemaker; Z90.49 Acquired absence of other specified parts of digestive tract; Z79.899 Other long term (current) drug therapy
CPT/HCPCS: G0463; 99201; U0003